=== PATIENT | female | born 1950 | race Caucasian/White ===

== ENCOUNTER 2016-08-02 15:16 | Inpatient (IN) | payer OTHER ==
[~2016-08-02] VITALS: Ht 175.3 cm; Wt 77.6 kg
[~2016-08-02 15:16] MED LIST: ATOR10TA88 PO; CHOL100010 PO; DOXE100C4 PO; GABA-113 PO; GDN80 PO; GLC/500 PO; MDRDP21 PO; MELO15TA3 PO; OMEGCAP2 PO; OMEP20CA59 PO
[2016-08-02] MEDS ORDERED: SODIUM BICARBONATE 8.4% INJ 50 MEQ/50 ML VIAL IV STA (15:34)
[2016-08-02] MEDS ORDERED: SODIUM BICARB 8.4% INJ 50 MEQ/50 ML SYR IV STA ×2 (15:34→16:14)
[2016-08-02] MEDS ORDERED: MAGNESIUM SULFATE 1GM / D5W 1 GM BAG IV STA ×2 (15:34)
[2016-08-02] MEDS ORDERED: ALPR-385 PO (15:42)
[2016-08-02] MEDS ORDERED: LISI-461 PO (15:42)
[2016-08-02] MEDS ORDERED: AMT/25 PO (15:42)
[2016-08-02] MEDS ORDERED: RMR15 PO (15:42)
[2016-08-02] MEDS ORDERED: SODIUM BICARBONATE 8.4% INJ 150 MEQ in DEXTROSE 5% 1000ML 1,000 ML IV SCH (15:45)
[2016-08-02 15:46] LABS: ISTAT CREATININE 0.9 mg/dl (0.6-1.3); ISTAT IONIZED CALCIUM 1.22 mmol/l (1.12-1.32)
[2016-08-02 15:47] LABS: BASO % 0.1 %; BASO ABS # 0.02 K/uL (0-0.2); COMPLETE YES; EOS % 0.5 %; HEMATOCRIT 43.9 % (37-47); IG% 0.1 %; LYMPH % 23.7 %; LYMPH ABS # 3.44 K/uL (1.2-3.4); MEAN CELL VOLUME 85.6 fL (80-100); MEAN CORPUSCULAR HEMOGLOBIN 29.6 pg (25-34); MEAN CORPUSCULAR HGB CONC 34.6 g/dl (32-36); MEAN PLATELET VOLUME 12.1 fL (7.4-10.4); MONO % 6.8 %; NEUT % 68.8 %; PLATELET COUNT 233 K/uL (130-400); RED BLOOD COUNT 5.13 M/uL (4.2-5.4)
[2016-08-02 15:48] LABS: ISTAT ARTERIAL BLOOD GAS HCO3 25 meq/L (19-24); ISTAT ARTERIAL BLOOD GAS PCO2 42 mmHg (35-46); ISTAT ARTERIAL BLOOD GAS PO2 180 mmHg (80-95); ISTAT ARTERIAL BLOOD GAS pH 7.39 (7.35-7.45); ISTAT CARBON DIOXIDE 27 mEq/l (24-31)
[2016-08-02 15:57] LABS: INR 1.1 (0.9-1.1); PARTIAL THROMBOPLASTIN RATIO 0.8; PROTHROMBIN TIME (PATIENT) 11.4 SECONDS (9.0-12.0)
--- NOTE | 2016-08-02 15:59 | DIAGNOSTIC IMAGING REPORT ---
CT HEAD WITHOUT CONTRAST (CT) CLINICAL HISTORY: Acute change in mental status COMPARISON STUDY: No previous studies for comparison. TECHNIQUE: Axial CT of the brain is performed from the vertex to the skull base. IV contrast was not administered for this examination. CT DOSE: 638.56 mGycm FINDINGS: No intra or extra-axial mass lesions are visualized. There is no CT evidence of acute cortical infarction. There is no evidence of midline shift. There is no acute hemorrhage. No calvarial fractures are visualized. There is no evidence of pathologic ventricular dilatation. There is no evidence of acute sinusitis IMPRESSION: No acute intracranial findings Electronically signed by: Jonny Del Toro M.D. 08/02/2016 3:57 PM Dictated Date/Time: 08/02/2016 3:57 PM
[2016-08-02 16:02] LABS: URINE APPEARANCE CLOUDY (CLEAR); URINE BILIRUBIN NEG (NEG); URINE COLOR DK YELLOW; URINE EPITHELIAL CELL AUTO >30 /lpf (0-5); URINE NITRITE NEG (NEG); URINE PH 5.5 (4.5-7.5); URINE SPECIFIC GRAVITY 1.022 (1.000-1.030); UROBILINOGEN NEG (NEG); ZZURINE CULT IF INDIC CATH NO
[2016-08-02 16:03] LABS: MANUAL MICROSCOPIC REQUIRED? NO; REVIEW REQ? NO
--- NOTE | 2016-08-02 16:03 | DIAGNOSTIC IMAGING REPORT ---
SINGLE VIEW CHEST CLINICAL HISTORY: Change in mental status. Intubation. FINDINGS: An AP, portable, upright chest radiograph is compared to study dated 03/11/2010. Correlation is made with chest CT dated 02/28/2010. The examination is significantly degraded by portable technique and patient rotation. An endotracheal tube has been placed. The tip projects 4 cm above the radha. The cardiomediastinal silhouette is normal for projection. The pulmonary vasculature is noncongested. There is elevation of the right hemidiaphragm. Consolidative change is present in the right midlung. A right pleural effusion is suspected. The left lung is grossly clear. No pneumothorax is seen. The skeletal structures are osteopenic. The bony thorax is grossly intact. IMPRESSION: 1. An endotracheal tube has been placed. The tip projects approximately 4 cm above the radha. 2. There is elevation of the right hemidiaphragm with consolidative change in the right midlung. This could represent atelectasis with volume loss versus an infectious/inflammatory pneumonitis. Clinical correlation will be required. Radiographic follow-up to resolution is recommended. 3. A right pleural effusion is suspected. 4. The left lung appears clear. Electronically signed by: Laurent Kent M.D. 08/02/2016 4:01 PM Dictated Date/Time: 08/02/2016 3:59 PM
[2016-08-02] MEDS ORDERED: PIPERACILLIN/TAZOBACTAM 4.5 GM/100ML D5W IV STA (16:04)
[2016-08-02 16:25] LABS: ACETAMINOPHEN < 2 ug/ml (10-30)
[2016-08-02 16:26] LABS: ALKALINE PHOSPHATASE 51 U/L (45-117); ALT/SGPT 21 U/L (12-78); BLOOD UREA NITROGEN 18 mg/dl (7-18); BUN/CREATININE RATIO 19.8 (10-20); CALCIUM 9.7 mg/dl (8.5-10.1); CARBON DIOXIDE 22 mmol/L (21-32); CHLORIDE 105 mmol/L (98-107); CREATININE 0.93 mg/dl (0.60-1.20); GLUCOSE 107 mg/dl (70-99); SODIUM 141 mmol/L (136-145)
[2016-08-02] MEDS ORDERED: ONDANSETRON INJ 2 MG/ML 2 ML VIAL IV PRN (16:30)
[2016-08-02] MEDS ORDERED: LEVOFLOXACIN / D5W 750 MG in PREMIXED IN D5W 150 ML IV SCH (16:30)
[2016-08-02] MEDS ORDERED: FENTANYL CITRATE INJ 50 MCG/1 ML 2 ML VIAL IV PRN (16:30)
[2016-08-02] MEDS ORDERED: ALBUT/IPRATROP 3MG/0.5MG NEB 3 ML VIAL INH PRN (16:30)
[2016-08-02 17:11] LABS: POTASSIUM 3.2 mmol/L (3.5-5.1)
[2016-08-02 17:20] LABS: MAGNESIUM 1.8 mg/dl (1.8-2.4)
[2016-08-02] MEDS ORDERED: PIPERACILL/TAZOBAC IV 3.375 GM in DEXTROSE 5% 100ML 100 ML IV SCH (18:00)
[2016-08-02 18:19] VITALS: BP 145/87; PULSE 74; TEMP 36.9; O2SAT 100; Ht 175.3 cm; Wt 77.6 kg
--- NOTE | 2016-08-02 18:50 | Critical Care Consultation ---
Critical Care Consultation Date of Consultation: Aug 02, 2016. Attending Physician: Kyle Hackett D.O. Reason for Consultation: acute resp failure, OD History of Present Illness Dear Dr. Hackett: thank you for your kind referral of Mrs. Matthews to [facility]. this is a 66 yo female with a significant hx of depression and previous suicidal thoughts, presented to the ED after been found in bed unresponsive, she was intubated in the ED due to airway protection. in fact, her sat was low and the Po2 was disproportionate from the 100% O2 she was on. afterward the pt hx revealed an empty bottle of amitriptyline with approximately 2 gm worth of the medication missing. the rest of her meds appeared untouched. her down time was [place]. the pt also given magnesium due to prolonged QTc. Poison control was notified. in the ICU, the pt remains obtunded, pupils are mid size sluggish, and no response to tactile and verbal. RR = VR. did not withdraw to pain on my exam. family were at the bed side, and according to the living will the pt was DNR. Past Medical/Surgical History HTN, Depression, chronic pain. Family History Heart disease Social History Smoking Status: Never Smoker Alcohol Use: not obtainable. Marital Status: Occupation Status: disabled Allergies Coded Allergies: Aspirin (Verified Allergy, Mild, ASPIRIN, 08/02/16) Erythromycin (Verified Allergy, Mild, RASH, 08/02/16) Penicillins (Verified Allergy, Unknown, 08/02/16) Home Medications Scheduled Alprazolam (Xanax), 1 MG PO DAILY Amitriptyline HCl (Amitriptyline HCl), 250 MG PO HS Atorvastatin (Lipitor), 10 MG PO QPM Cholecalciferol (Vitamin D), 1,000 INTER.UNIT PO BID Doxepin Hcl (Doxepin), 100 MG PO QPM Gabapentin (Neurontin), 300 MG PO TID Lisinopril (Zestril), 10 MG PO DAILY Meloxicam (Mobic), 7.5 MG PO DAILY Metformin Hcl (Glucophage), 500 MG PO BID Mirtazapine (Mirtazapine), 30 MG PO HS Omeprazole (Prilosec), 20 MG PO DAILY Ziprasidone (Geodon *), 160 MG PO HS Current Inpatient Medications Current Inpatient Medications Medications (Trade) Dose Ordered Sig/William Route Start Time Stop Time Status Last Admin Dose Admin Enoxaparin Sodium (Lovenox Inj) 40 mg QPM SQ 08/02/16 21:00 09/01/16 16:29 Fentanyl Citrate (Fentanyl Inj) 25 mcg Q1H PRN IV 08/02/16 16:30 08/16/16 16:29 Ondansetron HCl 4 mg 4 mg Q6H PRN IV 08/02/16 16:30 09/01/16 16:29 Pantoprazole Sodium/Syringe (Protonix Inj/ Syringe) 10 ml @ 5 mls/min DAILY IV 08/03/16 09:00 09/02/16 08:59 Albuterol/ Ipratropium 3 ml 3 ml Q4 PRN INH 08/02/16 16:30 09/01/16 16:29 Sodium Bicarbonate 75 meq/Potassium Chloride 20 meq/ Sodium Chloride 1,085 ml @ 125 mls/hr Q8H41M IV 08/02/16 18:45 09/01/16 16:29 Ceftriaxone Sodium/Dextrose (Rocephin Inj/ Dextrose Add-[place] 50ML) 50 ml @ 100 mls/hr Q24H IV 08/02/16 18:30 08/09/16 18:29 UNV Metoprolol Tartrate (Lopressor Iv) 5 mg Q6 IV. 08/03/16 00:00 09/02/16 00:00 UNV Review of Systems Constitutional: + problem reported (hypothermia on arrival) ENT: + problem reported (obtunded, unresponsive and the ROS is not obtainable.) Physical Exam Date Time Temp Pulse Resp B/P Pulse Ox O2 Delivery O2 Flow Rate FiO2 08/02/16 17:45 74 16 97 08/02/16 17:43 131/90 08/02/16 17:30 74 16 98 08/02/16 17:28 126/88 08/02/16 17:15 74 16 98 08/02/16 17:13 123/89 08/02/16 17:00 74 16 99 08/02/16 16:50 74 16 129/91 99 Mechanical Ventilator 08/02/16 16:41 100 08/02/16 16:30 76 16 150/88 100 Mechanical Ventilator 08/02/16 16:15 77 16 183/102 100 Mechanical Ventilator 08/02/16 16:00 77 16 171/105 100 Mechanical Ventilator 08/02/16 15:37 85 08/02/16 15:30 35.4 83 20 115/79 97 Mechanical Ventilator 08/02/16 15:20 90 20 148/93 96 Ambu-Bag General Appearance: no apparent distress Head: normocephalic, atraumatic Eyes: + pertinent finding (pupils mid size non reacting. ) ENT: + pertinent finding (intubated with 7.5 ETT) Neck: supple Respiratory/Chest: + rhonchi Cardiovascular: regular rate, rhythm, + pertinent finding (QTc 600) Abdomen/GI: normal bowel sounds Extremities/Musculoskelatal: normal inspection Neurologic/Psych: + pertinent finding (obtunded) Laboratory Results Last 24 Hours Test 08/02/16 15:27 08/02/16 15:28 08/02/16 15:30 08/02/16 15:45 Bedside Blood Gas pH (LAB) 7.39 Bedside Blood Gas pCO2 (LAB) 42 mmHg Bedside Blood Gas pO2 (LAB) 180 mmHg Bedside Blood Gas HCO3 (LAB) 25 meq/L Bedside Blood Gas Total CO2 27 mEq/l Bedside Blood Gas Base Excess (LAB) 0.0 meq/L Bedside Blood Gas O2 Saturation 100.0 % Bedside Hemoglobin 15.0 g/dl Bedside Hematocrit 44 % Bedside Sodium 140 mEq/L Bedside Potassium 3.5 mEq/L Bedside Chloride 101 mEq/L Bedside Total CO2 28 mEq/l Anion Gap 15.0 mmol/L 14.0 mmol/L Bedside Blood Urea Nitrogen 22 mg/dl Bedside Creatinine 0.9 mg/dl Bedside Glucose (other) 114 mg/dl Bedside Ionized Calcium (Raquel) 1.22 mmol/l White Blood Count 14.50 K/uL Red Blood Count 5.13 M/uL Hemoglobin 15.2 g/dL Hematocrit 43.9 % Mean Corpuscular Volume 85.6 fL Mean Corpuscular Hemoglobin 29.6 pg Mean Corpuscular Hemoglobin Concent 34.6 g/dl Platelet Count 233 K/uL Mean Platelet Volume 12.1 fL Neutrophils (%) (Auto) 68.8 % Lymphocytes (%) (Auto) 23.7 % Monocytes (%) (Auto) 6.8 % Eosinophils (%) (Auto) 0.5 % Basophils (%) (Auto) 0.1 % Neutrophils # (Auto) 9.96 K/uL Lymphocytes # (Auto) 3.44 K/uL Monocytes # (Auto) 0.99 K/uL Eosinophils # (Auto) 0.07 K/uL Basophils # (Auto) 0.02 K/uL RDW Standard Deviation 40.7 fL RDW Coefficient of Variation 13.1 % Immature Granulocyte % (Auto) 0.1 % Immature Granulocyte # (Auto) 0.02 K/uL Prothrombin Time 11.4 SECONDS Prothromb Time International Ratio 1.1 Activated Partial Thromboplast Time 21.4 SECONDS Partial Thromboplastin Ratio 0.8 Sodium Level 141 mmol/L Potassium Level mmol/L Chloride Level 105 mmol/L Carbon Dioxide Level 22 mmol/L Blood Urea Nitrogen 18 mg/dl Creatinine 0.93 mg/dl Estimated GFR () 75.3 Estimated GFR (Non- 64.9 BUN/Creatinine Ratio 19.8 Random Glucose 107 mg/dl Calcium Level 9.7 mg/dl Total Bilirubin 1.4 mg/dl Direct Bilirubin mg/dl Aspartate Amino Transf (AST/SGOT) U/L Alanine Aminotransferase (ALT/SGPT) 21 U/L Alkaline Phosphatase 51 U/L Troponin I < 0.015 ng/ml Total Protein 6.5 gm/dl Albumin 3.5 gm/dl Salicylates Level < 1.7 mg/dl Acetaminophen Level < 2 ug/ml Urine Color DK YELLOW Urine Appearance CLOUDY Urine pH 5.5 Urine Specific [employer] 1.022 Urine Protein NEG Urine Glucose (UA) NEG Urine Ketones 2+ Urine Occult Blood NEG Urine Nitrite NEG Urine Bilirubin NEG Urine Urobilinogen NEG Urine Leukocyte Esterase NEG Urine WBC (Auto) 1-5 /hpf Urine RBC (Auto) 0-4 /hpf Urine Hyaline Casts (Auto) 1-5 /lpf Urine Epithelial Cells (Auto) >30 /lpf Urine Bacteria (Auto) NEG Test 08/02/16 16:40 08/02/16 16:41 Potassium Level 3.2 mmol/L Magnesium Level 1.8 mg/dl Direct Bilirubin 0.3 mg/dl Aspartate Amino Transf (AST/SGOT) 32 U/L Total Creatine Kinase 840 U/L Bedside Lactic Acid Venous 0.78 mmol/L Diagnostic Results head ct without evidence of cerebral injury. CXR with sub segmental atelectasis. Assessment & Plan #1 acute resp failure. #2 Tricyclic OD. #3 Coma presumed relatd to the above. #4 Depresion by Hx. #5 aspiration pneumonitis. #6 possible suicidal attempt. #7 HTN. #8 Back pain. Plan: #1 continue bicarb drip. #2 check ABG every 4 hrs to avoid met alkalosis. #3 check Qtc hourly., #4 dc Levaquin ( prolonged QTc). #5 dc Zosyn ( allergy to PCN). #6 start Ceftriaxone for aspiration and CAP. #7 Vent support with VAP bundle. #8 GI and DVT prophylaxis. #9 keep off sedation. expect clearance over 24- 48 hours of the TCA. if not , will repeat the head ct , eval for cerebral edema. #10 daily labs. #11 family updated. discussed with the staff and with dr. Hackett, appreciate your consultation. CCT 60 min
[2016-08-02 20:00] VITALS: BP 137/84; PULSE 75; TEMP 36.9; O2SAT 100
[2016-08-02 20:39] LABS: ISTAT ALLEN TEST Pass; ISTAT ARTERIAL BLOOD GAS HCO3 26 meq/L (19-24); ISTAT ARTERIAL BLOOD GAS PCO2 32 mmHg (35-46); ISTAT ARTERIAL BLOOD GAS PO2 171 mmHg (80-95); ISTAT ARTERIAL BLOOD GAS pH 7.52 (7.35-7.45); ISTAT CARBON DIOXIDE 27 mEq/l (24-31); ISTAT DELIVERY SYSTEM Ventilator; ISTAT FIO2 70 %; ISTAT PEEP 5; ISTAT RATE 16; ISTAT SITE R Radial; Vt 450
--- NOTE | 2016-08-02 20:48 | History and Physical ---
History & Physical Date & Time of Service: Aug 02, 2016 at 20:25 Chief Complaint: Respiratory Failure,Tricyclic Antidepressant Overd Primary Care Physician: Rachid Laws D.O.Int.Med. History of Present Illness Source: family, hospital records, EMS 66 yo female with a history of depression who was found minimally responsive at her house this morning and later brought to the ED by EMS after being intubated in the field. The details of her presentation are difficult to determine, her is at the bedside but he himself is not a great historian. He says that he was watching the football game last night and that the patient was in bed. It is not unusual for her to spend long amounts of time in bed, even during the day. She was asleep and this was around 9pm. This morning when the patient woke up he tried to wake up the patient but she would not open her eyes , would not move at all. It is unclear as to what time that was, but the patient did not arrive in the ED until 1520. She was intubated by EMS in the field. The patient's does not know if she intentionally overdoses on any medications, he says that she controls both her own medications and his medications. Also, he is legally blind so cannot tell what pills she would have took. The RN in the ED did notice that when she was taking inventory of the patient's medications, her amitriptyline bottle had only 8 pills left but should have had more based on when it was filled. Also, the patient just started taking Xanax. The said that she did not have any signs of infection like fever, chills, cough, dyspnea or abdominal pain over the past few days. In the ED her vitals were stable with the exception of hypothermia of 35.4 degrees. WBC was elevated. CXR showed right mid lung consolidation vs atelectasis. CT head was normal. EKG showed QT prolongation, she was given magnesium and sodium bicarbonate. Past Medical/Surgical History Medical Problems: (1) COPD (chronic obstructive pulmonary disease) Status: Chronic (2) Degenerative disc disease, lumbar Status: Chronic (3) Depressive Disorder Nec Status: Chronic (4) Hypertension Nos Status: Chronic Surgical Problems: (1) S/P section Status: Resolved (2) S/P cholecystectomy Status: Resolved (3) S/P hysterectomy Status: Resolved Family History Heart disease Social History Smoking Status: Never Smoker Alcohol Use: not obtainable. Marital Status: Housing status: lives with family Occupational Status: disabled Immunizations History of Influenza Vaccine: No History of Tetanus Vaccine?: Yes Tetanus Immunization Date: May 04, 2005 History of Pneumococcal: No History of Hepatitis B Vaccine: No Multi-Drug Resistant Organisms History of MDRO: No Allergies Coded Allergies: Aspirin (Verified Allergy, Mild, ASPIRIN, 08/02/16) Erythromycin (Verified Allergy, Mild, RASH, 08/02/16) Penicillins (Verified Allergy, Unknown, 08/02/16) Home Medications Scheduled Alprazolam (Xanax), 1 MG PO DAILY Amitriptyline HCl (Amitriptyline HCl), 250 MG PO HS Atorvastatin (Lipitor), 10 MG PO QPM Cholecalciferol (Vitamin D), 1,000 INTER.UNIT PO BID Doxepin Hcl (Doxepin), 100 MG PO QPM Gabapentin (Neurontin), 300 MG PO TID Lisinopril (Zestril), 10 MG PO DAILY Meloxicam (Mobic), 7.5 MG PO DAILY Metformin Hcl (Glucophage), 500 MG PO BID Mirtazapine (Mirtazapine), 30 MG PO HS Omeprazole (Prilosec), 20 MG PO DAILY Ziprasidone (Geodon *), 160 MG PO HS Review of Systems cannot recall because she was intubated, unresponsive Physical Exam Vital Signs Date Time Temp Pulse Resp B/P Pulse Ox O2 Delivery O2 Flow Rate FiO2 08/02/16 20:07 70 08/02/16 18:19 36.9 74 18 145/87 100 Mechanical Ventilator 70 08/02/16 18:15 99 08/02/16 17:45 74 16 97 08/02/16 17:43 131/90 08/02/16 17:30 74 16 98 08/02/16 17:28 126/88 08/02/16 17:15 74 16 98 08/02/16 17:13 123/89 08/02/16 17:00 74 16 99 08/02/16 16:50 74 16 129/91 99 Mechanical Ventilator 08/02/16 16:41 100 08/02/16 16:30 76 16 150/88 100 Mechanical Ventilator 08/02/16 16:15 77 16 183/102 100 Mechanical Ventilator 08/02/16 16:00 77 16 171/105 100 Mechanical Ventilator 08/02/16 15:37 85 08/02/16 15:30 35.4 83 20 115/79 97 Mechanical Ventilator 08/02/16 15:20 90 20 148/93 96 Ambu-Bag General Appearance: WD/WN, no apparent distress Head: normocephalic, atraumatic Eyes: normal inspection, sclerae normal, + pertinent finding (pupils 4mm, minimal reaction to light) ENT: normal ENT inspection, hearing grossly normal, + pertinent finding ( intubated) Neck: supple, no adenopathy, no JVD, trachea midline Respiratory/Chest: chest non-tender, no respiratory distress, no accessory muscle use, + decreased breath sounds Cardiovascular: regular rate, rhythm, no edema, no gallop, no JVD, no murmur, normal peripheral pulses Abdomen/GI: normal bowel sounds, non tender, soft, no organomegaly Extremities/Musculoskelatal: normal inspection, no calf tenderness, normal capillary refill, no pedal edema, normal range of motion, pelvis stable Neurologic/Psych: riffler tender II-XII nml as tested, + depressed affect, + disoriented, + pertinent finding (withdraws to pain appropriately, will not open eyes or follow commands) Skin: normal color, warm/dry, no rash Diagnostics Laboratory Results Results Past 24 Hours Test 08/02/16 15:27 08/02/16 15:28 08/02/16 15:30 08/02/16 15:45 Range/Units Bedside Blood Gas pH (LAB) 7.39 7.35-7.45 Bedside Blood Gas pCO2 (LAB) 42 35-46 mmHg Bedside Blood Gas pO2 (LAB) 180 80-95 mmHg Bedside Blood Gas HCO3 (LAB) 25 19-24 meq/L Bedside Blood Gas Total CO2 27 24-31 mEq/l Bedside Blood Gas Base Excess (LAB) 0.0 -9-1.8 meq/L Bedside Blood Gas O2 Saturation 100.0 90-95 % Bedside Hemoglobin 15.0 12.0-16.0 g/dl Bedside Hematocrit 44 37-47 % Bedside Sodium 140 135-144 mEq/L Bedside Potassium 3.5 3.3-5.0 mEq/L Bedside Chloride 101 101-112 mEq/L Bedside Total CO2 28 24-31 mEq/l Anion Gap 15.0 14.0 3-11 mmol/L Bedside Blood Urea Nitrogen 22 7-18 mg/dl Bedside Creatinine 0.9 0.6-1.3 mg/dl Bedside Glucose (other) 114 70-99 mg/dl Bedside Ionized Calcium (Raquel) 1.22 1.12-1.32 mmol/l White Blood Count 14.50 4.8-10.8 K/uL Red Blood Count 5.13 4.2-5.4 M/uL Hemoglobin 15.2 12.0-16.0 g/dL Hematocrit 43.9 37-47 % Mean Corpuscular Volume 85.6 80-100 fL Mean Corpuscular Hemoglobin 29.6 25-34 pg Mean Corpuscular Hemoglobin Concent 34.6 32-36 g/dl Platelet Count 233 130-400 K/uL Mean Platelet Volume 12.1 7.4-10.4 fL Neutrophils (%) (Auto) 68.8 % Lymphocytes (%) (Auto) 23.7 % Monocytes (%) (Auto) 6.8 % Eosinophils (%) (Auto) 0.5 % Basophils (%) (Auto) 0.1 % Neutrophils # (Auto) 9.96 1.4-6.5 K/uL Lymphocytes # (Auto) 3.44 1.2-3.4 K/uL Monocytes # (Auto) 0.99 0.11-0.59 K/uL Eosinophils # (Auto) 0.07 0-0.5 K/uL Basophils # (Auto) 0.02 0-0.2 K/uL RDW Standard Deviation 40.7 36.4-46.3 fL RDW Coefficient of Variation 13.1 11.5-14.5 % Immature Granulocyte % (Auto) 0.1 % Immature Granulocyte # (Auto) 0.02 0.00-0.02 K/uL Prothrombin Time 11.4 9.0-12.0 SECONDS Prothromb Time International Ratio 1.1 0.9-1.1 Activated Partial Thromboplast Time 21.4 21.0-31.0 SECONDS Partial Thromboplastin Ratio 0.8 Sodium Level 141 136-145 mmol/L Potassium Level 3.5-5.1 mmol/L Chloride Level 105 98-107 mmol/L Carbon Dioxide Level 22 21-32 mmol/L Blood Urea Nitrogen 18 7-18 mg/dl Creatinine 0.93 0.60-1.20 mg/dl Estimated GFR () 75.3 Estimated GFR (Non- 64.9 BUN/Creatinine Ratio 19.8 10-20 Random Glucose 107 70-99 mg/dl Calcium Level 9.7 8.5-10.1 mg/dl Total Bilirubin 1.4 0.2-1 mg/dl Direct Bilirubin 0-0.2 mg/dl Aspartate Amino Transf (AST/SGOT) 15-37 U/L Alanine Aminotransferase (ALT/SGPT) 21 12-78 U/L Alkaline Phosphatase 51 45-117 U/L Troponin I < 0.015 0-0.045 ng/ml Total Protein 6.5 6.4-8.2 gm/dl Albumin 3.5 3.4-5.0 gm/dl Salicylates Level < 1.7 2.8-20 mg/dl Acetaminophen Level < 2 10-30 ug/ml Urine Color DK YELLOW Urine Appearance CLOUDY CLEAR Urine pH 5.5 4.5-7.5 Urine Specific [place] 1.022 1.000-1.030 Urine Protein NEG NEG Urine Glucose (UA) NEG NEG Urine Ketones 2+ NEG Urine Occult Blood NEG NEG Urine Nitrite NEG NEG Urine Bilirubin NEG NEG Urine Urobilinogen NEG NEG Urine Leukocyte Esterase NEG NEG Urine WBC (Auto) 1-5 0-5 /hpf Urine RBC (Auto) 0-4 0-4 /hpf Urine Hyaline Casts (Auto) 1-5 0-5 /lpf Urine Epithelial Cells (Auto) >30 0-5 /lpf Urine Bacteria (Auto) NEG NEG Test 08/02/16 16:40 08/02/16 16:41 Range/Units Potassium Level 3.2 3.5-5.1 mmol/L Magnesium Level 1.8 1.8-2.4 mg/dl Direct Bilirubin 0.3 0-0.2 mg/dl Aspartate Amino Transf (AST/SGOT) 32 15-37 U/L Total Creatine Kinase 840 26-192 U/L Bedside Lactic Acid Venous 0.78 0.90-1.70 mmol/L Microbiology Results 08/02/16 Blood Culture, Received Pending 08/02/16 Blood Culture, Received Pending 08/02/16 MRSA DNA Surveillance Screen, Received Pending Diagnostic Radiology CXR: intubated, right pleural effusion, right midlung atelectasis vs consolidation CT head: normal EKG normal sinus rhythm, QT prolongation Impression Assessment and Plan 66 yo female with unresponsiveness, metabolic vs toxic encephalopathy - Encephalopathy: metabolic vs toxic possible overdose of TCA or interaction of multiple medications with sedating properties no planned sedation, can use Fentanyl PRN for any signs of pain treat possible right lung pneumonia renal function, electrolytes, CT head normal admit to ICU since intubated - Acute respiratory failure: likely due to effects of TCA and benzodiazepines stable on ventilatory currently - Right sided pneumonia: treat with Zosyn, no Levaquin due to QT prolongation - Hypothermia: JADA pat - DVT prophylaxis: Lovenox - TCA overdose (potential): sodium bicarbonate, follow EKG for QT correction Level of Care Critical Care Advanced Directives Existing Advance Directive: No Existing Living Will: No 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 Y/N: Yes Risk Level: Not Assessed Given or contraindicated: Enoxaparin (Lovenox)SQ
[2016-08-02] MEDS ORDERED: ENOXAPARIN 40 MG/0.4 ML SYR SQ SCH (21:00)
[2016-08-02] MEDS: POTASSIUM CHLORIDE IV SCH (21:09)
[2016-08-02] MEDS: [UNRECOGNIZED DRUG - OTHER] IV SCH (21:09)
[2016-08-02] MEDS: SODIUM BICARBONATE IV SCH (21:09)
[2016-08-02] MEDS ORDERED: INFLUENZA VIRUS QUAD VACCINE 0.5 ML SYR IM. ONE (21:45)
[2016-08-02] MEDS ORDERED: INFLUENZA ADMINISTRATION CHARGE ONE (21:45)
--- NOTE | 2016-08-02 21:51 | EMERGENCY ROOM VISIT NOTE ---
History Report prepared by Janet: Liz Orellana Under the Supervision of: Dr. Everette Begum D.O. First contact with patient: 15:17 Chief Complaint: OVERDOSE (INTENTIONAL) Stated Complaint: OVERDOSE History of Present Illness The patient is a 66 year old female who presents to the Emergency Room via ambulance to be evaluated for altered mental status secondary to a possible overdose today. Per EMS and patient's family, the patient was last seen at 8:30 last evening. She was complaining about feeling worried but had no physical symptoms at that time. She went to bed but this morning, did not get up. Her made multiple attempts to wake her up without success, so an ambulance was called. En route, she was given Narcan, but she did not respond. She was intubated in the field. Her family notes that the patient was recently discharged from the [facility] after being admitted for depression and started a new benzo 2 weeks ago. She is on Xanax, Amitriptyline, Mirtazapine, Doxepin, and Ziprasidone. The patient is a nonsmoker with a history of COPD. Complete history unobtainable secondary to unresponsiveness. Source of History: family, EMS History Limited By: other (unresponsive) Onset: today Position: other (global) Quality: other (AMS - possible overdose) Timing: constant Review of Systems Unobtainable secondary to unresponsiveness. Past Medical & Surgical Medical Problems: (1) COPD (chronic obstructive pulmonary disease) (2) Degenerative disc disease, lumbar (3) Depressive Disorder Nec (4) Hypertension Nos (5) Respiratory failure (6) Tricyclic antidepressant overdose of undetermined intent Surgical Problems: (1) S/P section (2) S/P cholecystectomy (3) S/P hysterectomy Family History Heart disease Social History Smoking Status: Never Smoker Marital Status: Occupation Status: disabled Current/Historical Medications Scheduled Alprazolam (Xanax), 1 MG PO DAILY Amitriptyline HCl (Amitriptyline HCl), 250 MG PO HS Atorvastatin (Lipitor), 10 MG PO QPM Cholecalciferol (Vitamin D), 1,000 INTER.UNIT PO BID Doxepin Hcl (Doxepin), 100 MG PO QPM Gabapentin (Neurontin), 300 MG PO TID Lisinopril (Zestril), 10 MG PO DAILY Meloxicam (Mobic), 7.5 MG PO DAILY Metformin Hcl (Glucophage), 500 MG PO BID Mirtazapine (Mirtazapine), 30 MG PO HS Omeprazole (Prilosec), 20 MG PO DAILY Ziprasidone (Geodon *), 160 MG PO HS Allergies Coded Allergies: Aspirin (Verified Allergy, Mild, ASPIRIN, 08/02/16) Erythromycin (Verified Allergy, Mild, RASH, 08/02/16) Penicillins (Verified Allergy, Unknown, 08/02/16) Physical Exam Vital Signs Date Time Temp Pulse Resp B/P Pulse Ox O2 Delivery O2 Flow Rate FiO2 08/02/16 16:15 77 16 183/102 100 Mechanical Ventilator 08/02/16 16:00 77 16 171/105 100 Mechanical Ventilator 08/02/16 15:37 85 08/02/16 15:30 35.4 83 20 115/79 97 Mechanical Ventilator 08/02/16 15:20 90 20 148/93 96 Ambu-Bag Physical Exam GENERAL: Unresponsive, laying on stretcher, intubated. HEAD: Normocephalic, atraumatic. EYE EXAM: normal conjunctiva, pupils are 3 mm and reactive. NOSE: No septal hematoma. OROPHARYNX: no exudate, no erythema, lips, buccal mucosa, and tongue normal and mucous membranes are moist. 7.5 ET tube was 23 at the lips. NECK: supple, no nuchal rigidity, no adenopathy, non-tender LUNGS: Coarse breath sounds bilaterally. Normal chest wall mechanics HEART: no murmurs, S1 normal and S2 normal ABDOMEN: abdomen soft, non-tender, normo-active bowel sounds, no masses, no rebound or guarding. BACK: Back is symmetrical on inspection and there is no deformity, no midline tenderness, no CVA tenderness. PELVIS: Stable to compression anterior and posterior. SKIN: no rashes and no bruising UPPER EXTREMITIES: upper extremities are grossly normal. LOWER EXTREMITIES: No pitting edema. NEURO EXAM: Unresponsive, eyes closed, intubated, withdraws toes to pain. Medical Decision & Procedures ER Provider Diagnostic Interpretation: Xray results per the radiologist and my interpretation. Other results have been interpreted by the radiologist and reviewed by me. CT HEAD WITHOUT CONTRAST (CT) CLINICAL HISTORY: Acute change in mental status COMPARISON STUDY: No previous studies for comparison. TECHNIQUE: Axial CT of the brain is performed from the vertex to the skull base. IV contrast was not administered for this examination. CT DOSE: 638.56 mGycm FINDINGS: No intra or extra-axial mass lesions are visualized. There is no CT evidence of acute cortical infarction. There is no evidence of midline shift. There is no acute hemorrhage. No calvarial fractures are visualized. There is no evidence of pathologic ventricular dilatation. There is no evidence of acute sinusitis IMPRESSION: No acute intracranial findings Electronically signed by: Jonny Del Toro M.D. 08/02/2016 3:57 PM Dictated Date/Time: 08/02/2016 3:57 PM SINGLE VIEW CHEST CLINICAL HISTORY: Change in mental status. Intubation. FINDINGS: An AP, portable, upright chest radiograph is compared to study dated 03/11/2010. Correlation is made with chest CT dated 02/28/2010. The examination is significantly degraded by portable technique and patient rotation. An endotracheal tube has been placed. The tip projects 4 cm above the radha. The cardiomediastinal silhouette is normal for projection. The pulmonary vasculature is noncongested. There is elevation of the right hemidiaphragm. Consolidative change is present in the right midlung. A right pleural effusion is suspected. The left lung is grossly clear. No pneumothorax is seen. The skeletal structures are osteopenic. The bony thorax is grossly intact. IMPRESSION: 1. An endotracheal tube has been placed. The tip projects approximately 4 cm above the radha. 2. There is elevation of the right hemidiaphragm with consolidative change in the right midlung. This could represent atelectasis with volume loss versus an infectious/inflammatory pneumonitis. Clinical correlation will be required. Radiographic follow-up to resolution is recommended. 3. A right pleural effusion is suspected. 4. The left lung appears clear. Electronically signed by: Laurent Kent M.D. 08/02/2016 4:01 PM Dictated Date/Time: 08/02/2016 3:59 PM Laboratory Results 08/02/16 15:30 Red Blood Count 5.13, Mean Corpuscular Volume 85.6, Mean Corpuscular Hemoglobin 29.6, Mean Corpuscular Hemoglobin Concent 34.6, Mean Platelet Volume 12.1, Neutrophils (%) (Auto) 68.8, Lymphocytes (%) (Auto) 23.7, Monocytes (%) (Auto) 6.8, Eosinophils (%) (Auto) 0.5, Basophils (%) (Auto) 0.1, Neutrophils # (Auto) 9.96, Lymphocytes # (Auto) 3.44, Monocytes # (Auto) 0.99, Eosinophils # (Auto) 0.07, Basophils # (Auto) 0.02 08/02/16 15:30 Test 08/02/16 15:28 08/02/16 15:30 08/02/16 15:45 Bedside Hemoglobin 15.0 g/dl (12.0-16.0) Bedside Hematocrit 44 % (37-47) Bedside Sodium 140 mEq/L (135-144) Bedside Potassium 3.5 mEq/L (3.3-5.0) Bedside Chloride 101 mEq/L (101-112) Bedside Total CO2 28 mEq/l (24-31) Bedside Blood Urea Nitrogen 22 mg/dl (7-18) Bedside Creatinine 0.9 mg/dl (0.6-1.3) Bedside Glucose (other) 114 mg/dl (70-99) Bedside Ionized Calcium (Raquel) 1.22 mmol/l (1.12-1.32) White Blood Count 14.50 K/uL (4.8-10.8) Red Blood Count 5.13 M/uL (4.2-5.4) Hemoglobin 15.2 g/dL (12.0-16.0) Hematocrit 43.9 % (37-47) Mean Corpuscular Volume 85.6 fL (80-100) Mean Corpuscular Hemoglobin 29.6 pg (25-34) Mean Corpuscular Hemoglobin Concent 34.6 g/dl (32-36) Platelet Count 233 K/uL (130-400) Mean Platelet Volume 12.1 fL (7.4-10.4) Neutrophils (%) (Auto) 68.8 % Lymphocytes (%) (Auto) 23.7 % Monocytes (%) (Auto) 6.8 % Eosinophils (%) (Auto) 0.5 % Basophils (%) (Auto) 0.1 % Neutrophils # (Auto) 9.96 K/uL (1.4-6.5) Lymphocytes # (Auto) 3.44 K/uL (1.2-3.4) Monocytes # (Auto) 0.99 K/uL (0.11-0.59) Eosinophils # (Auto) 0.07 K/uL (0-0.5) Basophils # (Auto) 0.02 K/uL (0-0.2) RDW Standard Deviation 40.7 fL (36.4-46.3) RDW Coefficient of Variation 13.1 % (11.5-14.5) Immature Granulocyte % (Auto) 0.1 % Immature Granulocyte # (Auto) 0.02 K/uL (0.00-0.02) Prothrombin Time 11.4 SECONDS (9.0-12.0) Prothromb Time International Ratio 1.1 (0.9-1.1) Activated Partial Thromboplast Time 21.4 SECONDS (21.0-31.0) Partial Thromboplastin Ratio 0.8 Anion Gap 14.0 mmol/L (3-11) Estimated GFR () 75.3 Estimated GFR (Non- 64.9 BUN/Creatinine Ratio 19.8 (10-20) Calcium Level 9.7 mg/dl (8.5-10.1) Total Bilirubin 1.4 mg/dl (0.2-1) Alanine Aminotransferase (ALT/SGPT) 21 U/L (12-78) Alkaline Phosphatase 51 U/L (45-117) Troponin I < 0.015 ng/ml (0-0.045) Total Protein 6.5 gm/dl (6.4-8.2) Albumin 3.5 gm/dl (3.4-5.0) Salicylates Level < 1.7 mg/dl (2.8-20) Acetaminophen Level < 2 ug/ml (10-30) Urine Color DK YELLOW Urine Appearance CLOUDY (CLEAR) Urine pH 5.5 (4.5-7.5) Urine Specific [place] 1.022 (1.000-1.030) Urine Protein NEG (NEG) Urine Glucose (UA) NEG (NEG) Urine Ketones 2+ (NEG) Urine Occult Blood NEG (NEG) Urine Nitrite NEG (NEG) Urine Bilirubin NEG (NEG) Urine Urobilinogen NEG (NEG) Urine Leukocyte Esterase NEG (NEG) Urine WBC (Auto) 1-5 /hpf (0-5) Urine RBC (Auto) 0-4 /hpf (0-4) Urine Hyaline Casts (Auto) 1-5 /lpf (0-5) Urine Epithelial Cells (Auto) >30 /lpf (0-5) Urine Bacteria (Auto) NEG (NEG) Laboratory results per my review. Medications Administered Medications (Trade) Dose Ordered Sig/William Route Start Time Stop Time Status Last Admin Dose Admin Sodium Bicarbonate/ Dextrose (Sodium Bicarbonate 8.4% Inj/D5W 1000ml) 1,150 ml @ 100 mls/hr [id number] IV 08/02/16 15:45 08/02/16 18:19 DC 08/02/16 16:03 100 MLS/HR Sodium Bicarbonate (Sodium Bicarbonate 8.4% Inj) 50 meq NOW STAT IV 08/02/16 15:34 08/02/16 15:35 DC 08/02/16 16:02 50 MEQ Magnesium Sulfate (Magnesium Sulfate) 2 gm NOW STAT IV 08/02/16 15:34 08/02/16 15:35 DC 08/02/16 16:04 2 GM Piperacillin Sod/ Tazobactam Sod (Zosyn Iv) 4.5 gm NOW STAT IV 08/02/16 16:04 08/02/16 16:05 DC 08/02/16 17:01 4.5 GM ECG Indication: altered mental status Rate (beats per minute): 88 Rhythm: sinus rhythm Findings: left axis deviation, other (prolonged QRS and QTC) Comparison ECG Date: 05/06/2010 Change: QRS and QTc are longer. Repeat in-hospital EKG: Sinus rhythm at 76 BPM, prolonged QTC, QRS is improving. ED Course ED COURSE: Vital signs were reviewed and showed hyperthermia. The patients medical record was reviewed The above diagnostic studies were performed and reviewed. ED treatments and interventions as stated above. 1516: The patient was evaluated in room A1. A complete history and physical examination was performed 1528: I spoke with [facility]. They agreed with a bicarb drip. 1534: Ordered Magnesium Sulfate 2 gm IV, Sodium Bicarbonate 50 meq IV. 1545: Ordered Sodium Bicarbonate 150 meq/Dextrose 1150 ml @ 100 mls/hr IV,. 1610: I discussed my findings with the patient's family and they understand and agree with the treatment plan. Based on the patients age, coexisting illnesses, exam and lab findings the decision to treat as an inpatient was made. The patient remained stable while under my care. The patient will be evaluated for further management. 1612: I discussed the case with Dr. Hacktet [facility] Hospitalist. The patient will be evaluated for further management. 1614: Ordered Sodium Bicarbonate 50 ml IV. 1615: Respiratory will advance the ET tube 1.5 cm. Medical Decision Differential diagnoses includes but is not limited to toxic, metabolic, infectious, traumatic, cardiac, neurologic, hematologic, psychiatric and inflammatory etiologies. Patient is a 66-year-old female who presents the ER unresponsive. She is last seen well last night around 8:30 in her significant other notes that she was just simply worried last night. She recent discharge from the [facility]. No previous suicide attempts. Since 9 PM last night she was lying in bed and had been unresponsive. They tried to wake her up multiple times today but were unsuccessful. They called EMS. She was transported to the ER and in route was intubated due to respiratory failure. Upon presentation to the ER she slightly withdraws her lower extremities to pain. Pupils are reactive. ET tube was in place. This was advanced following a chest x-ray 1.5 cm. Chest x-ray showed a focal consolidation the right upper lobe. Upon review of her medications initially she had 3 separate bottles of TCA medications. She also recently started benzodiazepine. Patient required no sedation while in the ER. Ventilator was managed. Labs were obtained and show a leukocytosis of 14,000, BMP along with LFTs is unremarkable. CK was only 800. Troponin was negative. Salicylates and Tylenol were negative. UA was negative. ABG shows a pH 7.39 along with bicarbonate 25. Upon her initial presentation to EKG was obtained which showed a QRS of 1:30. She was initially given 2 boluses of bicarbonate and placed on bicarbonate drip. QTC was greater than 550. Repeat EKG did show that this QRS duration improved. I did contact poison control and they creep with the management. Family was updated at bedside. Patient was discussed with internal medicine and admitted for further management. She is continued on a bicarbonate drip on the ER. She was also given 2 g of magnesium for the wide QRS along with Zosyn for her likely aspiration pneumonitis. Consults Time Called: 1525 Consulting Physician: [facility] Returned Call: 1521 I spoke with [facility]. They agreed with a bicarb drip. Additional Consults: Time Called: 1610 Consulted Physician: Dr. Hackett [facility] Returned Call: 1612 Additional Comments: I discussed the case with him. The patient will be evaluated for further management. Impression Primary Impression: Tricyclic antidepressant overdose of undetermined intent Additional Impressions: Altered mental status Prolongation of QRS complex on electrocardiography Sepsis Critical Care I have personally spent 80 minutes of critical care time in the direct management of this patient. This includes bedside care, interpretation of diagnostic studies, and testing, discussion with consultants, patient, and family members, and other required patient management activities. This 80 minutes is in excess of all separately billable procedures. Scribe Attestation The scribe's documentation has been prepared under my direction and personally reviewed by me in its entirety. I confirm that the note above accurately reflects all work, treatment, procedures, and medical decision making performed by me. Departure Information Dispostion Being Evaluated By Hospitalist Referrals Rachid Laws D.O.Int.Med. (PCP) Patient Instructions My [facility] Problem Qualifiers Primary Impression: Tricyclic antidepressant overdose of undetermined intent Encounter type: initial encounter Qualified Codes: T43.014A - Poisoning by tricyclic antidepressants, undetermined, initial encounter Additional Impressions: Altered mental status Altered mental status type: coma Coma depth: [place] coma 3-8 Coma timing: at arrival to emergency department Qualified Codes: R40.2432 - [place] coma scale score 3-8, at arrival to emergency department Sepsis Sepsis type: sepsis due to unspecified organism Qualified Codes: A41.9 - Sepsis, unspecified organism
[2016-08-02 22:00] VITALS: BP 146/90; PULSE 81; O2SAT 99
[2016-08-02] MEDS ORDERED: CEFTRIAXONE SOD INJ 1 GM in DEXTROSE 5% ADD-VANTAGE 50ML 50 ML IV SCH (22:00)
[2016-08-02] MEDS ORDERED: FENTANYL 1250MCG/250ML NSS IV PRN (23:15)
[2016-08-02] MEDS ORDERED: NURSING VERBAL MED ORDER ONE (23:15)
[2016-08-03] VITALS (11 sets, daily range): BP systolic 104–151; BP diastolic 71–89; PULSE 61–91; TEMP 36.8–37.3; O2SAT 90–99
[2016-08-03 00:13] LABS: ISTAT ALLEN TEST Pass; ISTAT ARTERIAL BLOOD GAS HCO3 29 meq/L (19-24); ISTAT ARTERIAL BLOOD GAS PCO2 36 mmHg (35-46); ISTAT ARTERIAL BLOOD GAS PO2 115 mmHg (80-95); ISTAT ARTERIAL BLOOD GAS pH 7.52 (7.35-7.45); ISTAT CARBON DIOXIDE 30 mEq/l (24-31); ISTAT DELIVERY SYSTEM Ventilator; ISTAT FIO2 40 %; ISTAT PEEP 5; ISTAT RATE 14; ISTAT SITE R Radial; Vt 450
[2016-08-03] MEDS: SODIUM BICARBONATE IV SCH ×2 (03:26→12:10)
[2016-08-03] MEDS: [UNRECOGNIZED DRUG - OTHER] IV SCH ×2 (03:26→12:10)
[2016-08-03] MEDS: POTASSIUM CHLORIDE IV SCH ×2 (03:26→12:10)
[2016-08-03 03:59] LABS: ISTAT ALLEN TEST Pass; ISTAT ARTERIAL BLOOD GAS HCO3 30 meq/L (19-24); ISTAT ARTERIAL BLOOD GAS PCO2 36 mmHg (35-46); ISTAT ARTERIAL BLOOD GAS PO2 101 mmHg (80-95); ISTAT ARTERIAL BLOOD GAS pH 7.53 (7.35-7.45); ISTAT CARBON DIOXIDE 31 mEq/l (24-31); ISTAT DELIVERY SYSTEM Ventilator; ISTAT FIO2 35 %; ISTAT PEEP 5; ISTAT RATE 14; ISTAT SITE L Radial; VE 6.2; Vt 450
[2016-08-03] MEDS ORDERED: NURSING VERBAL MED ORDER ONE (05:15)
[2016-08-03 05:18] LABS: BASO % 0.2 %; BASO ABS # 0.02 K/uL (0-0.2); COMPLETE YES; EOS % 0.2 %; HEMATOCRIT 37.8 % (37-47); IG% 0.2 %; LYMPH % 14.6 %; LYMPH ABS # 1.89 K/uL (1.2-3.4); MEAN CELL VOLUME 84.8 fL (80-100); MEAN CORPUSCULAR HEMOGLOBIN 29.8 pg (25-34); MEAN CORPUSCULAR HGB CONC 35.2 g/dl (32-36); MEAN PLATELET VOLUME 11.5 fL (7.4-10.4); NEUT % 77.8 %; PLATELET COUNT 217 K/uL (130-400); RED BLOOD COUNT 4.46 M/uL (4.2-5.4); WHITE BLOOD COUNT 12.93 K/uL (4.8-10.8)
[2016-08-03 05:39] LABS: BUN/CREATININE RATIO 19.8 (10-20); CALCIUM 8.4 mg/dl (8.5-10.1); CREATININE 0.99 mg/dl (0.60-1.20); MAGNESIUM 1.9 mg/dl (1.8-2.4); POTASSIUM 3.4 mmol/L (3.5-5.1)
[2016-08-03] MEDS: MAGNESIUM SULFATE 1GM / D5W 1 GM in PREMIXED IN D5W 100 ML IV SCH ×2 (05:42→05:43)
--- NOTE | 2016-08-03 06:55 | DIAGNOSTIC IMAGING REPORT ---
CHEST ONE VIEW PORTABLE CLINICAL HISTORY: Respiratory failure COMPARISON STUDY: 08/02/2016 FINDINGS: There is an endotracheal tube 32 mm above the radha. There is a nasogastric tube within the stomach. The heart is normal in size. There is no failure. There is been interval resolution of the right midlung zone opacity. Increased right basal markings, likely atelectatic.[ IMPRESSION: Interval resolution of the previously described right midlung zone opacity. Satisfactory positioning of the endotracheal tube and nasogastric tube. Electronically signed by: Jonny Del Toro M.D. 08/03/2016 6:53 AM Dictated Date/Time: 08/03/2016 6:51 AM
[2016-08-03] MEDS: METOPROLOL TARTRATE 1 MG/ML VIAL IV. SCH ×3 (08:20→12:09)
[2016-08-03 08:51] LABS: URINE APPEARANCE TURBID (CLEAR); URINE BILIRUBIN NEG (NEG); URINE COLOR DK YELLOW; URINE EPITHELIAL CELL AUTO >30 /lpf (0-5); URINE NITRITE NEG (NEG); URINE PH 8.5 (4.5-7.5); URINE SPECIFIC GRAVITY 1.018 (1.000-1.030); UROBILINOGEN POS (NEG)
[2016-08-03] MEDS ORDERED: PANTOprazole INJ 40 MG in SYRINGE 0 ML IV SCH (09:00)
[2016-08-03 09:10] LABS: MANUAL MICROSCOPIC REQUIRED? NO; REVIEW REQ? NO
--- NOTE | 2016-08-03 10:32 | Critical Care Progress Note ---
Critical Care Progress Note Date of Service Aug 03, 2016. Attending Dr. Gilbert Subjective the pt is improving and waking up, following commands on the vent. full strength times four extremities. Objective she denies pain , no sob, she is bothered by the ETT. no other new symptoms, ROS otherwise was unremarkable. Assessment & Plan #1 OD with amitriptyline . #2 suicidal attempt with major depression. #3 acute resp failure, improving. #4 induced met alkalosis for forsed diuresis of the TCA. #5 aspiration pneumonia on CTX. #6 Hx of HTN. Plan: #1 extubate the pt. #2 continue Ceftriaxone. #3bed side swallow and start oral intake. #4 psych consult , eval for suicidal attempt, in patient vs out patient treatment. #5 prophylaxis for GI and DVT. #6 oral intake. discussed with the staff on rounds in details and with the pt and the family. CCT 45 min. Data Medications: Current Inpatient Medications Medications (Trade) Dose Ordered Sig/William Route Start Time Stop Time Status Last Admin Dose Admin Enoxaparin Sodium (Lovenox Inj) 40 mg QPM SQ 08/02/16 21:00 09/01/16 16:29 08/02/16 21:10 40 MG Fentanyl Citrate (Fentanyl Inj) 25 mcg Q1H PRN IV 08/02/16 16:30 08/16/16 16:29 Ondansetron HCl 4 mg 4 mg Q6H PRN IV 08/02/16 16:30 09/01/16 16:29 Pantoprazole Sodium/Syringe (Protonix Inj/ Syringe) 10 ml @ 5 mls/min DAILY IV 08/03/16 09:00 09/02/16 08:59 08/03/16 08:20 5 MLS/MIN Albuterol/ Ipratropium 3 ml 3 ml Q4 PRN INH 08/02/16 16:30 09/01/16 16:29 Sodium Bicarbonate 75 meq/Potassium Chloride 20 meq/ Sodium Chloride 1,085 ml @ 125 mls/hr Q8H41M IV 08/02/16 18:45 09/01/16 16:29 08/03/16 03:26 125 MLS/HR Ceftriaxone Sodium/Dextrose (Rocephin Inj/ Dextrose Add-Reyno 50ML) 50 ml @ 100 mls/hr Q24H IV 08/02/16 22:00 08/09/16 21:59 08/02/16 21:10 100 MLS/HR Metoprolol Tartrate 5 mg 5 mg Q6 IV. 08/03/16 00:00 09/02/16 00:00 08/03/16 08:20 5 MG Fentanyl Citrate (Fentanyl Drip 1250MCG/250 Nss) 250 ml @ 0 mls/hr Q0M PRN IV 08/02/16 23:15 08/16/16 23:14 08/02/16 23:41 30 MLS/HR I & O: 24-Hour Column 08/03/16 08:00 Intake Total 1182 ml Output Total 675 ml Balance 507 ml Vital Signs: Date Time Temp Pulse Resp B/P Pulse Ox O2 Delivery O2 Flow Rate FiO2 08/03/16 10:00 81 18 129/83 94 Nasal Cannula 1.0 08/03/16 09:00 84 22 151/83 95 Nasal Cannula 2.0 08/03/16 08:20 80 133/83 08/03/16 08:00 36.8 80 22 133/83 99 Mechanical Ventilator 30 08/03/16 08:00 99 Mechanical Ventilator 30 08/03/16 08:00 30 08/03/16 07:40 35 08/03/16 07:35 35 08/03/16 06:00 81 14 132/83 99 Mechanical Ventilator 35 08/03/16 05:19 35 08/03/16 04:00 99 Mechanical Ventilator 35 08/03/16 04:00 37.3 80 14 125/81 99 Mechanical Ventilator 35 08/03/16 04:00 35 08/03/16 02:06 40 08/03/16 01:58 76 14 104/71 99 Mechanical Ventilator 35 08/03/16 00:00 99 Mechanical Ventilator 40 08/03/16 00:00 37.3 76 14 135/86 99 Mechanical Ventilator 40 08/03/16 00:00 40 08/03/16 00:00 81 132/83 08/02/16 23:09 40 08/02/16 22:00 81 14 146/90 99 Mechanical Ventilator 50 08/02/16 20:29 50 08/02/16 20:07 70 08/02/16 20:00 100 Mechanical Ventilator 70 08/02/16 20:00 70 08/02/16 20:00 36.9 75 16 137/84 100 Mechanical Ventilator 70 08/02/16 18:19 36.9 74 18 145/87 100 Mechanical Ventilator 70 08/02/16 18:15 99 08/02/16 17:45 74 16 97 08/02/16 17:43 131/90 08/02/16 17:30 74 16 98 08/02/16 17:28 126/88 08/02/16 17:15 74 16 98 08/02/16 17:13 123/89 08/02/16 17:00 74 16 99 08/02/16 16:50 74 16 129/91 99 Mechanical Ventilator 08/02/16 16:41 100 08/02/16 16:30 76 16 150/88 100 Mechanical Ventilator 08/02/16 16:15 77 16 183/102 100 Mechanical Ventilator 08/02/16 16:00 77 16 171/105 100 Mechanical Ventilator 08/02/16 15:37 85 08/02/16 15:30 35.4 83 20 115/79 97 Mechanical Ventilator 08/02/16 15:20 90 20 148/93 96 Ambu-Bag S1S2 RRR. lungs are with rhonchi. abdomen is benign. no edema. neuro non focal. Laboratory Results: Last 24 Hours Test 08/02/16 15:27 08/02/16 15:28 08/02/16 15:30 08/02/16 15:45 Bedside Blood Gas pH (LAB) 7.39 Bedside Blood Gas pCO2 (LAB) 42 mmHg Bedside Blood Gas pO2 (LAB) 180 mmHg Bedside Blood Gas HCO3 (LAB) 25 meq/L Bedside Blood Gas Total CO2 27 mEq/l Bedside Blood Gas Base Excess (LAB) 0.0 meq/L Bedside Blood Gas O2 Saturation 100.0 % Bedside Hemoglobin 15.0 g/dl Bedside Hematocrit 44 % Bedside Sodium 140 mEq/L Bedside Potassium 3.5 mEq/L Bedside Chloride 101 mEq/L Bedside Total CO2 28 mEq/l Anion Gap 15.0 mmol/L 14.0 mmol/L Bedside Blood Urea Nitrogen 22 mg/dl Bedside Creatinine 0.9 mg/dl Bedside Glucose (other) 114 mg/dl Bedside Ionized Calcium (Raquel) 1.22 mmol/l White Blood Count 14.50 K/uL Red Blood Count 5.13 M/uL Hemoglobin 15.2 g/dL Hematocrit 43.9 % Mean Corpuscular Volume 85.6 fL Mean Corpuscular Hemoglobin 29.6 pg Mean Corpuscular Hemoglobin Concent 34.6 g/dl Platelet Count 233 K/uL Mean Platelet Volume 12.1 fL Neutrophils (%) (Auto) 68.8 % Lymphocytes (%) (Auto) 23.7 % Monocytes (%) (Auto) 6.8 % Eosinophils (%) (Auto) 0.5 % Basophils (%) (Auto) 0.1 % Neutrophils # (Auto) 9.96 K/uL Lymphocytes # (Auto) 3.44 K/uL Monocytes # (Auto) 0.99 K/uL Eosinophils # (Auto) 0.07 K/uL Basophils # (Auto) 0.02 K/uL RDW Standard Deviation 40.7 fL RDW Coefficient of Variation 13.1 % Immature Granulocyte % (Auto) 0.1 % Immature Granulocyte # (Auto) 0.02 K/uL Prothrombin Time 11.4 SECONDS Prothromb Time International Ratio 1.1 Activated Partial Thromboplast Time 21.4 SECONDS Partial Thromboplastin Ratio 0.8 Sodium Level 141 mmol/L Potassium Level mmol/L Chloride Level 105 mmol/L Carbon Dioxide Level 22 mmol/L Blood Urea Nitrogen 18 mg/dl Creatinine 0.93 mg/dl Estimated GFR () 75.3 Estimated GFR (Non- 64.9 BUN/Creatinine Ratio 19.8 Random Glucose 107 mg/dl Calcium Level 9.7 mg/dl Total Bilirubin 1.4 mg/dl Direct Bilirubin mg/dl Aspartate Amino Transf (AST/SGOT) U/L Alanine Aminotransferase (ALT/SGPT) 21 U/L Alkaline Phosphatase 51 U/L Troponin I < 0.015 ng/ml Total Protein 6.5 gm/dl Albumin 3.5 gm/dl Salicylates Level < 1.7 mg/dl Acetaminophen Level < 2 ug/ml Urine Color DK YELLOW Urine Appearance CLOUDY Urine pH 5.5 Urine Specific Twain 1.022 Urine Protein NEG Urine Glucose (UA) NEG Urine Ketones 2+ Urine Occult Blood NEG Urine Nitrite NEG Urine Bilirubin NEG Urine Urobilinogen NEG Urine Leukocyte Esterase NEG Urine WBC (Auto) 1-5 /hpf Urine RBC (Auto) 0-4 /hpf Urine Hyaline Casts (Auto) 1-5 /lpf Urine Epithelial Cells (Auto) >30 /lpf Urine Bacteria (Auto) NEG Test 08/02/16 16:40 08/02/16 16:41 08/02/16 20:25 08/02/16 23:58 Potassium Level 3.2 mmol/L Magnesium Level 1.8 mg/dl Direct Bilirubin 0.3 mg/dl Aspartate Amino Transf (AST/SGOT) 32 U/L Total Creatine Kinase 840 U/L Bedside Lactic Acid Venous 0.78 mmol/L Blood Gas Sample Site R Radial R Radial Bedside Blood Gas pH (LAB) 7.52 7.52 Bedside Blood Gas pCO2 (LAB) 32 mmHg 36 mmHg Bedside Blood Gas pO2 (LAB) 171 mmHg 115 mmHg Bedside Blood Gas HCO3 (LAB) 26 meq/L 29 meq/L Bedside Blood Gas Total CO2 27 mEq/l 30 mEq/l Bedside Blood Gas Base Excess (LAB) 3.0 meq/L 6.0 meq/L Bedside Blood Gas O2 Saturation 100.0 % 99.0 % Aníbal Test Pass Pass Oxygen Delivery Device Ventilator Ventilator Bedside Oxygen Rate (breaths/min) 16 14 Bedside FiO2 70 % 40 % Blood Gas Tidal Volume 450 450 Blood Gas PEEP 5 5 Test 08/03/16 03:45 08/03/16 05:09 08/03/16 08:15 Blood Gas Sample Site L Radial Bedside Blood Gas pH (LAB) 7.53 Bedside Blood Gas pCO2 (LAB) 36 mmHg Bedside Blood Gas pO2 (LAB) 101 mmHg Bedside Blood Gas HCO3 (LAB) 30 meq/L Bedside Blood Gas Total CO2 31 mEq/l Bedside Blood Gas Base Excess (LAB) 7.0 meq/L Bedside Blood Gas O2 Saturation 98.0 % Aníbal Test Pass Oxygen Delivery Device Ventilator Bedside Oxygen Rate (breaths/min) 14 Blood Gas Minute Ventilation 6.2 Bedside FiO2 35 % Blood Gas Tidal Volume 450 Blood Gas PEEP 5 White Blood Count 12.93 K/uL Red Blood Count 4.46 M/uL Hemoglobin 13.3 g/dL Hematocrit 37.8 % Mean Corpuscular Volume 84.8 fL Mean Corpuscular Hemoglobin 29.8 pg Mean Corpuscular Hemoglobin Concent 35.2 g/dl Platelet Count 217 K/uL Mean Platelet Volume 11.5 fL Neutrophils (%) (Auto) 77.8 % Lymphocytes (%) (Auto) 14.6 % Monocytes (%) (Auto) 7.0 % Eosinophils (%) (Auto) 0.2 % Basophils (%) (Auto) 0.2 % Neutrophils # (Auto) 10.07 K/uL Lymphocytes # (Auto) 1.89 K/uL Monocytes # (Auto) 0.90 K/uL Eosinophils # (Auto) 0.02 K/uL Basophils # (Auto) 0.02 K/uL RDW Standard Deviation 40.1 fL RDW Coefficient of Variation 13.1 % Immature Granulocyte % (Auto) 0.2 % Immature Granulocyte # (Auto) 0.03 K/uL Sodium Level 144 mmol/L Potassium Level 3.4 mmol/L Chloride Level 104 mmol/L Carbon Dioxide Level 30 mmol/L Anion Gap 10.0 mmol/L Blood Urea Nitrogen 20 mg/dl Creatinine 0.99 mg/dl Est Creatinine Clear Calc Drug Dose 60.0 ml/min Estimated GFR () 69.8 Estimated GFR (Non- 60.2 BUN/Creatinine Ratio 19.8 Random Glucose 107 mg/dl Calcium Level 8.4 mg/dl Magnesium Level 1.9 mg/dl Total Bilirubin 1.7 mg/dl Direct Bilirubin 0.4 mg/dl Aspartate Amino Transf (AST/SGOT) 34 U/L Alanine Aminotransferase (ALT/SGPT) 25 U/L Alkaline Phosphatase 53 U/L Total Protein 5.7 gm/dl Albumin 3.0 gm/dl Urine Color DK YELLOW Urine Appearance TURBID Urine pH 8.5 Urine Specific Twain 1.018 Urine Protein NEG Urine Glucose (UA) NEG Urine Ketones 2+ Urine Occult Blood NEG Urine Nitrite NEG Urine Bilirubin NEG Urine Urobilinogen POS Urine Leukocyte Esterase SMALL Urine WBC (Auto) 1-5 /hpf Urine RBC (Auto) 5-10 /hpf Urine Hyaline Casts (Auto) 5-10 /lpf Urine Epithelial Cells (Auto) >30 /lpf Urine Bacteria (Auto) NEG
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
[2016-08-03 16:10] LABS: BUN/CREATININE RATIO 15.2 (10-20); CALCIUM 8.5 mg/dl (8.5-10.1); CREATININE 0.97 mg/dl (0.60-1.20); POTASSIUM 3.3 mmol/L (3.5-5.1)
--- NOTE | 2016-08-03 17:14 | Family Medicine Progress Note ---
Progress Note Date of Service Aug 03, 2016. Subjective Pt evaluation today including: conversation w/ patient, physical exam, chart review, lab review, conversation w/ senior [employer] consultant, review of inpatient medication list Pain: 0/10 PO Intake: WNL Voiding: no voiding problems Patient was extubated this morning and tolerated well Admits to TCA overdose and states that it was in fact a suicide attempt. She had had it years ago before but was talked out of it by her PCP. She was on Elavil since then and states she had a stable mood. According to the patient she was recently d/c from this 2 months prior and has had increasing SI since then. She states she regrets it and has no SI but according to the RN she was asking family members to bring razor blades to the hospital She is willing to stay for inpt psych She also has concerns for her whom is legally blind and she is worried he will not get his medications. customer care manager is aware Constitutional: No fever Eyes: No worsening of vision ENT: No hearing loss Respiratory: No cough, No dyspnea on exertion, No shortness of breath, No sputum, No wheezing Cardiovascular: No chest pain Abdomen: No constipation, No diarrhea, No nausea, No pain, No vomiting Musculoskeletal: No joint pain, No muscle pain Female : No dysuria, No hematuria Neurologic: No memory loss, No weakness Psychiatric: No anxiety, No depression symptoms Endo: No fatigue Medications Medications Administered Medications (Trade) Dose Ordered Sig/William Route Start Time Stop Time Status Last Admin Dose Admin Sodium Bicarbonate/ Dextrose (Sodium Bicarbonate 8.4% Inj/D5W 1000ml) 1,150 ml @ 100 mls/hr [id number] IV 08/02/16 15:45 08/02/16 18:19 DC 08/02/16 16:03 100 MLS/HR Sodium Bicarbonate (Sodium Bicarbonate 8.4% Inj) 50 meq NOW STAT IV 08/02/16 15:34 08/02/16 15:35 DC 08/02/16 16:02 50 MEQ Magnesium Sulfate (Magnesium Sulfate) 2 gm NOW STAT IV 08/02/16 15:34 08/02/16 15:35 DC 08/02/16 16:04 2 GM Piperacillin Sod/ Tazobactam Sod (Zosyn Iv) 4.5 gm NOW STAT IV 08/02/16 16:04 08/02/16 16:05 DC 08/02/16 17:01 4.5 GM Enoxaparin Sodium 40 mg 40 mg QPM SQ 08/02/16 21:00 08/03/16 13:38 DC 08/02/16 21:10 40 MG Pantoprazole Sodium 40 mg/ Syringe 10 ml @ 5 mls/min DAILY IV 08/03/16 09:00 08/03/16 13:38 DC 08/03/16 08:20 5 MLS/MIN Sodium Bicarbonate 75 meq/Potassium Chloride 20 meq/ Sodium Chloride 1,085 ml @ 125 mls/hr [id number] IV 08/02/16 18:45 08/03/16 13:38 DC 08/03/16 12:10 125 MLS/HR Ceftriaxone Sodium/Dextrose (Rocephin Inj/ Dextrose Add-Bluejacket 50ML) 50 ml @ 100 mls/hr Q24H IV 08/02/16 22:00 08/09/16 21:59 08/02/16 21:10 100 MLS/HR Metoprolol Tartrate (Lopressor Iv) 5 mg Q6 IV. 08/03/16 00:00 08/03/16 13:38 DC 08/03/16 12:09 5 MG Influenza Virus Vaccine Quadrival 0.5 ml 0.5 ml ONCE ONCE IM. 08/02/16 21:45 08/02/16 21:46 DC 08/03/16 08:03 0.5 ML Fentanyl Citrate 250 ml @ 0 mls/hr Q0M PRN IV 08/02/16 23:15 08/03/16 13:38 DC 08/02/16 23:41 30 MLS/HR Magnesium Sulfate/ Prmx (Magnesium Sulfate/Premixed D5W) 100 ml @ 100 mls/hr Q1H IV 08/03/16 05:30 08/03/16 07:29 DC 08/03/16 05:43 100 MLS/HR Objective Vital Signs Date Time Temp Pulse Resp B/P Pulse Ox O2 Delivery O2 Flow Rate FiO2 08/03/16 16:00 95 Room Air 08/03/16 16:00 90 20 125/72 95 Room Air 08/03/16 14:00 61 18 120/77 90 Room Air 08/03/16 12:09 94 124/77 08/03/16 12:00 95 Nasal Cannula 1.0 08/03/16 12:00 91 20 124/77 94 Nasal Cannula 1.0 08/03/16 11:00 86 16 134/89 93 Nasal Cannula 1.0 08/03/16 10:00 81 18 129/83 94 Nasal Cannula 1.0 08/03/16 09:00 84 22 151/83 95 Nasal Cannula 2.0 08/03/16 08:20 80 133/83 08/03/16 08:00 Mechanical Ventilator 35 08/03/16 08:00 36.8 80 22 133/83 99 Mechanical Ventilator 30 08/03/16 08:00 99 Mechanical Ventilator 30 08/03/16 08:00 30 08/03/16 07:40 35 08/03/16 07:35 35 08/03/16 06:00 81 14 132/83 99 Mechanical Ventilator 35 08/03/16 05:19 35 08/03/16 04:00 99 Mechanical Ventilator 35 08/03/16 04:00 37.3 80 14 125/81 99 Mechanical Ventilator 35 08/03/16 04:00 35 08/03/16 02:06 40 08/03/16 01:58 76 14 104/71 99 Mechanical Ventilator 35 08/03/16 00:00 99 Mechanical Ventilator 40 08/03/16 00:00 37.3 76 14 135/86 99 Mechanical Ventilator 40 08/03/16 00:00 40 08/03/16 00:00 81 132/83 08/02/16 23:09 40 08/02/16 22:00 81 14 146/90 99 Mechanical Ventilator 50 08/02/16 20:29 50 08/02/16 20:07 70 08/02/16 20:00 100 Mechanical Ventilator 70 08/02/16 20:00 70 08/02/16 20:00 36.9 75 16 137/84 100 Mechanical Ventilator 70 08/02/16 18:19 36.9 74 18 145/87 100 Mechanical Ventilator 70 08/02/16 18:15 99 08/02/16 17:45 74 16 97 08/02/16 17:43 131/90 08/02/16 17:30 74 16 98 08/02/16 17:28 126/88 Physical Exam General Appearance: WD/WN, no apparent distress Eyes: normal inspection ENT: normal ENT inspection Neck: supple Respiratory/Chest: lungs clear, normal breath sounds, no respiratory distress, no accessory muscle use Cardiovascular: regular rate, rhythm, no murmur Abdomen: normal bowel sounds, non tender, soft Extremities: non-tender, normal inspection, no calf tenderness Neurologic/Psychiatric: alert, normal mood/affect, oriented x 3 Skin: normal color, warm/dry, no rash Lymphatic: no adenopathy Laboratory Results Results Past 24 Hours Test 08/02/16 20:25 08/02/16 23:58 08/03/16 03:45 08/03/16 05:09 Range/Units Blood Gas Sample Site R Radial R Radial L Radial Bedside Blood Gas pH (LAB) 7.52 7.52 7.53 7.35-7.45 Bedside Blood Gas pCO2 (LAB) 32 36 36 35-46 mmHg Bedside Blood Gas pO2 (LAB) 171 115 101 80-95 mmHg Bedside Blood Gas HCO3 (LAB) 26 29 30 19-24 meq/L Bedside Blood Gas Total CO2 27 30 31 24-31 mEq/l Bedside Blood Gas Base Excess (LAB) 3.0 6.0 7.0 -9-1.8 meq/L Bedside Blood Gas O2 Saturation 100.0 99.0 98.0 90-95 % Aníbal Test Pass Pass Pass Oxygen Delivery Device Ventilator Ventilator Ventilator Bedside Oxygen Rate (breaths/min) 16 14 14 Bedside FiO2 70 40 35 % Blood Gas Tidal Volume 450 450 450 Blood Gas PEEP 5 5 5 Blood Gas Minute Ventilation 6.2 White Blood Count 12.93 4.8-10.8 K/uL Red Blood Count 4.46 4.2-5.4 M/uL Hemoglobin 13.3 12.0-16.0 g/dL Hematocrit 37.8 37-47 % Mean Corpuscular Volume 84.8 80-100 fL Mean Corpuscular Hemoglobin 29.8 25-34 pg Mean Corpuscular Hemoglobin Concent 35.2 32-36 g/dl Platelet Count 217 130-400 K/uL Mean Platelet Volume 11.5 7.4-10.4 fL Neutrophils (%) (Auto) 77.8 % Lymphocytes (%) (Auto) 14.6 % Monocytes (%) (Auto) 7.0 % Eosinophils (%) (Auto) 0.2 % Basophils (%) (Auto) 0.2 % Neutrophils # (Auto) 10.07 1.4-6.5 K/uL Lymphocytes # (Auto) 1.89 1.2-3.4 K/uL Monocytes # (Auto) 0.90 0.11-0.59 K/uL Eosinophils # (Auto) 0.02 0-0.5 K/uL Basophils # (Auto) 0.02 0-0.2 K/uL RDW Standard Deviation 40.1 36.4-46.3 fL RDW Coefficient of Variation 13.1 11.5-14.5 % Immature Granulocyte % (Auto) 0.2 % Immature Granulocyte # (Auto) 0.03 0.00-0.02 K/uL Sodium Level 144 136-145 mmol/L Potassium Level 3.4 3.5-5.1 mmol/L Chloride Level 104 98-107 mmol/L Carbon Dioxide Level 30 21-32 mmol/L Anion Gap 10.0 3-11 mmol/L Blood Urea Nitrogen 20 7-18 mg/dl Creatinine 0.99 0.60-1.20 mg/dl Est Creatinine Clear Calc Drug Dose 60.0 ml/min Estimated GFR () 69.8 Estimated GFR (Non- 60.2 BUN/Creatinine Ratio 19.8 10-20 Random Glucose 107 70-99 mg/dl Calcium Level 8.4 8.5-10.1 mg/dl Magnesium Level 1.9 1.8-2.4 mg/dl Total Bilirubin 1.7 0.2-1 mg/dl Direct Bilirubin 0.4 0-0.2 mg/dl Aspartate Amino Transf (AST/SGOT) 34 15-37 U/L Alanine Aminotransferase (ALT/SGPT) 25 12-78 U/L Alkaline Phosphatase 53 45-117 U/L Total Protein 5.7 6.4-8.2 gm/dl Albumin 3.0 3.4-5.0 gm/dl Test 08/03/16 08:15 08/03/16 15:30 Range/Units Urine Color DK YELLOW Urine Appearance TURBID CLEAR Urine pH 8.5 4.5-7.5 Urine Specific [place] 1.018 1.000-1.030 Urine Protein NEG NEG Urine Glucose (UA) NEG NEG Urine Ketones 2+ NEG Urine Occult Blood NEG NEG Urine Nitrite NEG NEG Urine Bilirubin NEG NEG Urine Urobilinogen POS NEG Urine Leukocyte Esterase SMALL NEG Urine WBC (Auto) 1-5 0-5 /hpf Urine RBC (Auto) 5-10 0-4 /hpf Urine Hyaline Casts (Auto) 5-10 0-5 /lpf Urine Epithelial Cells (Auto) >30 0-5 /lpf Urine Bacteria (Auto) NEG NEG Sodium Level 142 136-145 mmol/L Potassium Level 3.3 3.5-5.1 mmol/L Chloride Level 103 98-107 mmol/L Carbon Dioxide Level 30 21-32 mmol/L Anion Gap 9.0 3-11 mmol/L Blood Urea Nitrogen 15 7-18 mg/dl Creatinine 0.97 0.60-1.20 mg/dl Est Creatinine Clear Calc Drug Dose 61.3 ml/min Estimated GFR () 71.5 Estimated GFR (Non- 61.7 BUN/Creatinine Ratio 15.2 10-20 Random Glucose 120 70-99 mg/dl Calcium Level 8.5 8.5-10.1 mg/dl Microbiology Results 08/02/16 MRSA DNA Surveillance Screen - Final, Complete Specimen Negative for MRSA by DNA Probe 08/03/16 Urine Culture, Received Pending Assessment and Plan 66 yo female that presented to ED with acute hypoxic respiratory failure and metabolic encephalopathy secondary to TCA overdose. She is extubated now and is pending placement to inpatient psych as she is medically cleared for placement. Metabolic encephalopathy secondary to TCA overdose r/t suicidal ideation- resolved - QTc was prolonged >600 however improving - sodium bicarb was d/c earlier today - monitor on tele until placement for patient can be decided - one to one - recheck QTc in am Acute hypoxic respiratory failure secondary to TCA overdose- improved - continue to monitor for sins of respiratory distress Hypokalemia - most likely secondary to Na bicarb administration - will recheck in am - replete prn Depression/ Anxiety/ SI - considering QTc all medications psych related will be held - Psych consult- appreciate input - pending psych placement Right sided PNA on CXR- was most likely a mucus plug vs atelectasis -will d/c antibiotics and recheck CBC - changes have resolved on CXR Hypothermia- resolved - continue to monitor temp DVT prophylaxis - lovenox Full resus Resident Physician Supervision Note: I interviewed and examined the patient. Discussed with [Samuel] and agree with findings and plan as documented in the note. Any exceptions or clarifications are listed here: [None] Documented By: Everette Woods asks ICU staff for razor blades, then tells me that she needs to get home to take care of her . agrees to inpatient psych, but "only if i can go home for a few days to get my 's meds out and do laundry for him" understands that if she kills herself her concerns on who will take care of her will persist vitals noted, nad, fatigued appearing, calm, QTC shortening but still a little long TCA OD in suicide attempt - improving. for psych once bed available, follow QTC Continued [facility] stay due to: other Discharge planning: uncertain
[2016-08-03] MEDS ORDERED: CEFUROXIME AXETIL 500 MG TAB PO SCH (18:00)
--- NOTE | 2016-08-03 18:44 | Psych Management Progress Note ---
Psychiatry Miscellaneous Date of Service: Aug 03, 2016. Liaison asked that I assess patient for 302 commitment, primary service completed exam. Patient had medically significant OD and is minimizing need for treatment, focussed on getting home to , unable/willing to meaningfully commit to treatment under 201 guidelines. Reviewed with patient need for treatment and nature of 302 commitment following review of initial consult. Based on MSE completed exam portion of 302 commitment.
--- NOTE | 2016-08-03 20:38 | Discharge Instructions ---
Discharge Instructions Admission Reason for Admission: Respiratory Failure,Tricyclic Antidepressant Overd Discharge Discharge Diagnosis / Problem: TCA overdose / Suicidal attempt Discharge Goals Goal(s): Improve disease control Activity Recommendations Activity Level: Assistance Required . Additional Information Patient informed of condition: Yes Advance Directives: No DNR: No Level of Care: Other Communicable Disease: No Prognosis: Improving Instructions / Follow-Up Instructions / Follow-Up Section 302 to Inpatient Psych Current Hospital Diet Patient's current hospital diet: Regular Diet Discharge Diet Recommended Diet: Regular Diet Pending Studies Studies pending at discharge: no Physician Orders On Transfer POLST Discussion: without POLST completion Medical Emergencies . Who to Call and When: Medical Emergencies: If at any time you feel your situation is an emergency, please call 911 immediately. . Non-Emergent Contact Non-Emergency issues call your: Primary Care Provider . . "Provider Documentation" section prepared by Shruthi Barboza. Core Measure Problem Core Measures: None
[2016-08-03] MEDS ORDERED: ATORVASTATIN 10 MG TAB PO SCH (21:00)
[2016-08-03] MEDS ORDERED: CHOLECALCIFEROL 1000 INTER.UNIT TAB PO SCH (21:00)
[2016-08-04] MEDS ORDERED: ATORVASTATIN 10 MG TAB PO SCH (09:00)
[2016-08-04] MEDS ORDERED: LISINOPRIL 10 MG TAB PO SCH ×2 (09:00)
[2016-08-04] MEDS ORDERED: CHOLECALCIFEROL 1000 INTER.UNIT TAB PO SCH (09:00)
[2016-08-04] MEDS ORDERED: PANTOprazole SOD 40 MG TAB PO SCH (09:00)
[2016-08-04] MEDS ORDERED: AMT50 PO (12:10)
[2016-08-04] MEDS ORDERED: ALPR1TAB3 PO (12:10)
[2016-08-04] MEDS ORDERED: GABA-113 PO (12:10)
[2016-08-04] MEDS ORDERED: FLUT0.15 NAE (12:10)
[2016-08-04] MEDS ORDERED: GDN/80 PO (12:10)
[2016-08-04] MEDS ORDERED: ZOLP5TAB PO (12:10)
[2016-08-04] MEDS ORDERED: MIRT30TA2 PO (12:10)
[2016-08-04] MEDS ORDERED: ESTCR PV (12:29)
--- NOTE | 2016-08-04 15:01 | Discharge Summary ---
Discharge Summary Admission Date: Aug 02, 2016 at 16:26 Discharge Date: Aug 03, 2016 Discharge Disposition: Acute care mental health Principal Diagnosis: SI TCA OD Immunizations: Have You Had Influenza Vaccine: No History of Tetanus Vaccine?: Yes Tetanus Immunization Date: May 04, 2005 History of Pneumococcal: No History of Hepatitis B Vaccine: No Procedures: Intubation and mechanical ventilation Consultations: Psych (Marianna Baker MD) Discharge Date: Aug 03, 2016 (Everette Woods D.O.) Medication Reconciliation Continued Medications: Atorvastatin (Lipitor) 10 Mg Tab 10 MG PO QPM, TAB Cholecalciferol (Vitamin D) 1,000 Inter.unit Tab 1000 INTER.UNIT PO BID, TAB Lisinopril (Zestril) 10 Mg Tab 10 MG PO DAILY, TAB Metformin Hcl (Glucophage) 500 Mg Tab 500 MG PO BID, TAB Omeprazole (Prilosec) 20 Mg Capcr 20 MG PO DAILY, CAP Discontinued Medications: Alprazolam (Xanax) 1 Mg Tab 1 MG PO DAILY, #30 Amitriptyline HCl (Amitriptyline HCl) 25 Mg Tab 250 MG PO HS Doxepin Hcl (Doxepin) 100 Mg Cap 100 MG PO QPM, #30 Gabapentin (Neurontin) 300 Mg Cap 300 MG PO TID, CAP Meloxicam (Mobic) 15 Mg Tab 7.5 MG PO DAILY, TAB Mirtazapine (Mirtazapine) 15 Mg Tab 30 MG PO HS Ziprasidone (Geodon *) 80 Mg Cap 160 MG PO HS, 0 Refills Discharge Exam Patient was medically cleared for psych inpatient She was agreeable to admission to inpatient psych for further evaluation and treatment Review of Systems: Constitutional: No fever Eyes: No worsening of vision ENT: No hearing loss Respiratory: No cough, No dyspnea at rest, No dyspnea on exertion, No shortness of breath, No sputum, No wheezing Cardiovascular: No chest pain Abdomen: No nausea, No pain, No vomiting Musculoskeletal: No joint pain, No muscle pain Genitourinary - Female: No dysuria Neurologic: No balance problems, No memory loss, No numbness/tingling Psychiatric: + depression symptoms Endocrine: + fatigue Integumentary: No rash Physical Exam: General Appearance: WD/WN, no apparent distress Eyes: normal inspection ENT: normal ENT inspection Neck: supple Respiratory/Chest: lungs clear, normal breath sounds, no respiratory distress, no accessory muscle use Cardiovascular: regular rate, rhythm, no murmur Abdomen / GI: normal bowel sounds, non tender, soft Extremities: normal inspection, no calf tenderness Neurologic/Psychiatric: alert, oriented x 3, + depressed affect Skin: normal color, warm/dry, no rash Lymphatic: no adenopathy (Marianna Baker MD) Hospital Course 66 yo female that presented to ED with acute hypoxic respiratory failure and metabolic encephalopathy secondary to TCA overdose. Patient was admitted to the ICU and was placed on a mechanical ventilator until weaned. Once extubated the patient was interviewed and she in fact took the TCA as suicide as an intent. We discussed her depression and she has been having SI for 2 months, since her Elavil was d/c. She was agreeable to inpatient treatment in the psych unit. She was noted to have a prolonged QTc but there was improvement during her hospital stay. She was also slightly hypokalemic which is most likely secondary to the sodium bicarb she received for the TCA overdose. It was not repleted and a repeat EKG and BMP in 24 hours was recommended. Metabolic encephalopathy secondary to TCA overdose r/t suicidal ideation- resolved - QTc was prolonged >600 however improving - recheck QTc in am - admission to inpatient psych Hypokalemia - most likely secondary to Na bicarb administration - recheck in am Depression/ Anxiety/ SI - considering QTc all medications psych related will be held - reevaluated psych medications during the inpatient psych admission Right sided PNA on CXR- was most likely a mucus plug vs atelectasis - will d/c antibiotics - changes have resolved on CXR DVT prophylaxis received - lovenox Full resus Total Time Spent: Less than 30 minutes This includes examination of the patient, discharge planning, medication reconciliation, and communication with other providers. (Marianna Baker MD) Resident Physician Supervision Note: I interviewed and examined the patient. Discussed with Dr. Baker and agree with findings and plan as documented in the note. Any exceptions or clarifications are listed here: None Documented By: Everette Woods physically feeling Ok. still suicidal - alternately asks for razor blades then asks if she can get home to be with . QTc shortening. stable for psych. see progress note 08/03. discharge summary done late due to bed opening at [facility] late in the day. (Everette Woods D.O.) Discharge Instructions Please refer to the electronic Patient Visit Report (Discharge Instructions) for additional information. (Marianna Baker MD) Additional Copies To Rachid Laws D.O.Int.Med.
== END 2016-08-03 20:47 | DRG 917 ==
LOC: ENRESERVDT → ENRESERVTM → EDBD 15:16 → C.ED 15:17 → C.MSICU 16:26 → CANBEDREQ 08-03 14:13
PROVIDERS: ADMIT Internal Medicine; ATTEND Family Medicine
PROC: 5A1935Z Respiratory Ventilation, Less than 24 Consecutive Hours (ICD-10-PCS; principal; 2016-08-02)
DX: T43.012A Poisoning by tricyclic antidepressants, intentional self-harm, initial encounter (principal); G93.41 Metabolic encephalopathy; G92 Toxic encephalopathy; J69.0 Pneumonitis due to inhalation of food and vomit; J96.01 Acute respiratory failure with hypoxia; F33.2 Major depressive disorder, recurrent severe without psychotic features; R45.851 Suicidal ideations; E87.2 Acidosis; I10 Essential (primary) hypertension; I45.81 Long QT syndrome; R40.2432 Glasgow coma scale score 3-8, at arrival to emergency department; E87.6 Hypokalemia; F41.9 Anxiety disorder, unspecified; M51.36 Other intervertebral disc degeneration, lumbar region; R68.0 Hypothermia, not associated with low environmental temperature; M54.9 Dorsalgia, unspecified; Z23 Encounter for immunization; J44.9 Chronic obstructive pulmonary disease, unspecified; Z79.899 Other long term (current) drug therapy; Z79.1 Long term (current) use of non-steroidal anti-inflammatories (NSAID); Z79.4 Long term (current) use of insulin

== ENCOUNTER 2016-08-03 20:47 | Inpatient (IN) | payer OTHER ==
[~2016-08-03] VITALS: Ht 170.2 cm; Wt 77.5 kg
[~2016-08-03 20:47] MED LIST changes: +ALPR-385 PO; +AMT/25 PO; +LISI-461 PO; -MDRDP21 PO; -OMEGCAP2 PO; +RMR15 PO
[2016-08-03] MEDS ORDERED: NURSING VERBAL MED ORDER ONE (21:00)
[2016-08-03 21:04] VITALS: BP 162/101; PULSE 93; TEMP 36.8; Ht 170.2 cm; Wt 77.5 kg
[2016-08-03] MEDS ORDERED: ALBUTEROL HFA 8 GM INHALER INH PRN (21:15)
[2016-08-03] MEDS ORDERED: POTASSIUM CHLORIDE 20 MEQ TABCR PO ONE (21:15)
[2016-08-03] MEDS ORDERED: BISMUTH SUBSALICYLATE PER ML OMNICELL CHARGE PO PRN (21:15)
[2016-08-03] MEDS ORDERED: hydrOXYzine HCL 25 MG TAB PO PRN (21:15)
[2016-08-03] MEDS ORDERED: SODIUM CHLORIDE 0.65% NA SOLN 45 ML (OCEAN) PRN (21:15)
[2016-08-03] MEDS ORDERED: ALUMINUM/MAGNESIUM SUSP 30 ML UDC PO PRN (21:15)
[2016-08-03] MEDS ORDERED: MAGNESIUM HYDROXIDE SUSP 30 ML UDC PO PRN (21:15)
[2016-08-03] MEDS: GABAPENTIN 300 MG CAP PO SCH (22:01)
[2016-08-03] MEDS: METFORMIN HCL 500 MG TAB PO SCH (22:01)
[2016-08-03] MEDS: MIRTAZAPINE TAB 15 MG TAB PO SCH (22:02)
[2016-08-03] MEDS: CHOLECALCIFEROL 1000 INTER.UNIT TAB PO SCH (22:02)
[2016-08-03] MEDS: ZIPRASIDONE 20 MG CAP PO SCH (22:03)
[2016-08-04 07:10] VITALS: BP_SYST 116; BP_SYST 145; BP_DIAS 77; BP_DIAS 86; PULSE 86; PULSE 90; TEMP 36.8
[2016-08-04 08:20] LABS: BUN/CREATININE RATIO 14.4 (10-20); CALCIUM 9.1 mg/dl (8.5-10.1); POTASSIUM 3.3 mmol/L (3.5-5.1)
[2016-08-04] MEDS: CEFUROXIME AXETIL 500 MG TAB PO SCH (08:41)
[2016-08-04] MEDS: PANTOprazole SOD 40 MG TAB PO SCH (08:41)
[2016-08-04] MEDS: METFORMIN HCL 500 MG TAB PO SCH ×2 (08:41→17:38)
[2016-08-04] MEDS: GABAPENTIN 300 MG CAP PO SCH ×3 (08:41→21:18)
[2016-08-04] MEDS: CHOLECALCIFEROL 1000 INTER.UNIT TAB PO SCH ×2 (08:42→21:17)
[2016-08-04] MEDS: LISINOPRIL 10 MG TAB PO SCH (08:42)
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
[2016-08-04] MEDS ORDERED: FLUT0.15 NAE (12:10)
[2016-08-04] MEDS ORDERED: AMT50 PO (12:10)
[2016-08-04] MEDS ORDERED: ALPR1TAB3 PO (12:10)
[2016-08-04] MEDS ORDERED: MIRT30TA2 PO (12:10)
[2016-08-04] MEDS ORDERED: GABA-113 PO (12:10)
[2016-08-04] MEDS ORDERED: GDN/80 PO (12:10)
[2016-08-04] MEDS ORDERED: ZOLP5TAB PO (12:10)
[2016-08-04] MEDS ORDERED: ESTCR PV (12:29)
[2016-08-04] MEDS ORDERED: CETIRIZINE HCL 10 MG TAB PO ONE (12:33)
[2016-08-04] MEDS: ATORVASTATIN 10 MG TAB PO SCH (21:16)
[2016-08-04] MEDS: ZIPRASIDONE 20 MG CAP PO SCH (21:17)
[2016-08-04] MEDS: MIRTAZAPINE TAB 15 MG TAB PO SCH (21:17)
[2016-08-04] MEDS ORDERED: NURSING VERBAL MED ORDER ONE (21:30)
[2016-08-04] MEDS ORDERED: TRAZODONE HCL 50 MG TAB PO SCH (22:00)
[2016-08-05] MEDS: hydrOXYzine HCL 25 MG TAB PO PRN ×2 (00:03→21:26)
[2016-08-05 07:01] VITALS: BP_SYST 150; BP_SYST 175; BP_DIAS 84; BP_DIAS 97; PULSE 89; PULSE 93; TEMP 36.8
[2016-08-05 08:01] LABS: POTASSIUM 3.5 mmol/L (3.5-5.1)
[2016-08-05 08:08] LABS: CHOLESTEROL/HDL RATIO 2.7
[2016-08-05] MEDS: CEFUROXIME AXETIL 500 MG TAB PO SCH (08:56)
[2016-08-05] MEDS: PANTOprazole SOD 40 MG TAB PO SCH (08:57)
[2016-08-05] MEDS: CHOLECALCIFEROL 1000 INTER.UNIT TAB PO SCH ×2 (08:57→21:26)
[2016-08-05] MEDS: METFORMIN HCL 500 MG TAB PO SCH ×2 (08:57→17:39)
[2016-08-05] MEDS: GABAPENTIN 300 MG CAP PO SCH ×3 (08:57→21:25)
[2016-08-05] MEDS: CETIRIZINE HCL 10 MG TAB PO SCH (08:58)
[2016-08-05] MEDS: LISINOPRIL 10 MG TAB PO SCH (08:58)
--- NOTE | 2016-08-05 12:36 | Psychiatric Progress Notes ---
Progress Note Date of Service Aug 05, 2016. Interval History 66 yo female admitted initially to the medical floor following a toxic ingestion of amitriptyline and alprazolam in a suicide attempt, and was medically cleared for transfer to [facility] on 08/03. Stressor include poor sleep, dark weather, and the need to care for her boyfriend. Chief Complaint "I didn't sleep last night. ". Subjective Patient was seen & assessed interval progress reviewed with Treatment Team. The patient remains concerned about her poor sleep, saying she got little last night, despite starting on trazodone and using prn vistaril. Her mood remains low, but denies SI. She had a meeting with her boyfriend Marcellus and his son yesterday. They talked about Marcellus's medical concerns, and Deborah's concerns about his care without her being home. His son reassured her that he would help his father with food and medications. Deborah is hesitant to commit to OP therapy after discharge due to her concerns for going out in bad weather. She was willing to consider if [facility] could be arranged. She is anxious to get home, but agrees that if her sleep is a problem then she needs to stay. I reviewed my conversation with Dr. Stoner yesterday in which he said that he thought it would be better if she could find an alternate provider, but said that he would not abandon her if she couldn't, would see her back but work with her on finding another provider. Review of Systems Constitutional: + fatigue ENT: + problem reported (No upper dentures) Respiratory: No cough, No dyspnea at rest, No dyspnea on exertion, No hemoptysis, No problem reported, No shortness of breath, No sputum, No wheezing Cardiovascular: No PND, No chest pain, No claudication, No edema, No orthopnea , No palpitations, No problem reported Abdomen: No GI bleeding, No constipation, No diarrhea, No nausea, No pain, No problem reported, No vomiting Musculoskeletal: No calf pain, No joint pain, No muscle pain, No problem reported, No swelling Neurologic: No balance problems, No memory loss, No numbness/tingling, No paralysis, No problem reported, No vertigo, No weakness Psychiatric: + anxiety, + depression symptoms, + insomnia Integumentary: No bleeding, No color change, No itch, No new/changing skin lesions, No problem reported, No rash Sleep Information Total Hours of Sleep: 6.00 Meal Information Percent of Breakfast Consumed: 90 Percent of Lunch Consumed: 50 Percent of Dinner Consumed: 85 Mental Status Exam During interview pt is: alert and oriented, cooperative Appearance: appropriately dressed, disheveled Eye contact is: good Motor behavior is: steady gait & station, no abnormal motor movements Speech: normal in rate, rhythm & volume Affect: mood congruent, flat Mood is: depressed Thought process: goal directed, clear, coherent Thought content: reality based without delusions Suicidal thought are: denied Homicidal thoughts are: denied Hallucinations: denies auditory, denies visual Cognition: memory grossly intact, attention grossly intact Intelligence estimated to be: average Insight: impaired Judgement: impaired Impression Patient remains depressed, with insomnia today. Trazodone was not effective at 50 mg. and so will increase to 100 mg. daily. Confirmed OP Geodon dose and will increase to 160 mg. with dinner. She may have been taking it at bedtime at home, and therefore not absorbing all of it. Encouraged to also use the prn vistaril if Trazodone ineffective. Plan (1) Major depressive disorder, recurrent severe without psychotic features 08/05 - Increase Geodon to OP dose of 160 mg. with dinner - Increase Trazodone to 100 mg. to target insomnia - Q 15 min checks for safety - Encourage participation in group and individual counseling - FAmily meeting held with BRITTA Germain yesterday - The patient will need psychiatric aftercare including therapy - Assist the patient to learn and utilize additional healthy coping strategies. - Encourage good sleep hygiene, including exercise, no daytime naps, reduced caffeine - Monitoring labs on Geodon completed. FLP WNL, fasting glucose 104 (2) Anxiety disorder, unspecified 08/05 - No BZD in view of OD - Encourage use of prn vistaril - Expose the patient to mindfulness, relaxation, breathing exercises. - Increase Buspar to 10 mg. TID (3) Dyslipidemia (4) Diabetes type 2, controlled 08/05 - Continue metformin - BSG's BID - Diabetic diet - Encourage exercise (5) Chronic GERD 08/05 - Convert Prilosec to Protonix Discharge / Aftercare Planning Primary Care Physician: Name: Rachid Laws DO Psychiatrist: Name: Kia LUONG Date of Appointment: Aug 31, 2016 Time of Appointment: 10am Therapist: Name: none, willing to start therapy in October. Visit Code E&M Code: 80501 Risk Factors Assessment : Yes /single/: No Higher / Fall in social status: No Access to guns: No Health problems: Yes Mental Health Diagnoses: Yes Substance use disorders: No Previous attempt: Yes Previous psychiatric stay: Yes Smoker: No Protective Factors Assessment Taoist beliefs: No : No Responsible for young children: No Employed: No Stable relationships: Yes Supportive family: Yes Data Vital Signs Last 24 Hrs: Date Time Temp Pulse Resp B/P Pulse Ox O2 Delivery O2 Flow Rate FiO2 08/05/16 07:01 36.8 89 18 175/97 93 150/84 Meds Administered Last 24 Hrs: Meds Administered (Past 24Hrs) Medications (Trade) Dose Ordered Sig/William Route Start Time Stop Time Status Last Admin Dose Admin Hydroxyzine HCl (Vistaril Tab) 50 mg HSZ PRN PO 08/03/16 21:15 09/02/16 21:14 08/05/16 00:03 50 MG Atorvastatin Calcium (Lipitor Tab) 10 mg QPM PO 08/04/16 21:00 09/03/16 20:59 08/04/16 21:16 10 MG Cholecalciferol (Vitamin D Tab) 1,000 inter.unit BID PO 08/03/16 22:00 09/02/16 21:59 08/05/16 08:57 1,000 INTER.UNIT Lisinopril (Zestril Tab) 10 mg DAILY PO 08/04/16 09:00 09/03/16 08:59 08/05/16 08:58 10 MG Metformin HCl (Glucophage Tab) 500 mg BIDM PO 08/03/16 22:00 09/02/16 21:59 08/05/16 08:57 500 MG Pantoprazole Sodium (Protonix Tab) 40 mg DAILY PO 08/04/16 09:00 09/03/16 08:59 08/05/16 08:57 40 MG Cefuroxime Axetil (Ceftin Tab) 500 mg DAILY PO 08/04/16 09:00 08/10/16 23:59 08/05/16 08:56 500 MG Gabapentin (Neurontin Cap) 300 mg TID PO 08/03/16 22:00 09/02/16 21:59 08/05/16 08:57 300 MG Mirtazapine (Remeron Tab) 30 mg HS PO 08/03/16 22:00 09/02/16 21:59 08/04/16 21:17 30 MG Ziprasidone (Geodon Cap) 120 mg HS PO 08/03/16 22:00 09/02/16 21:59 08/04/16 21:17 120 MG Potassium Chloride (Klor-Con Tab) 20 meq NOW ONCE PO 08/03/16 21:15 08/03/16 21:49 DC 08/03/16 22:01 20 MEQ Cetirizine HCl (zyrTEC TAB) 10 mg QAM PO 08/05/16 09:00 09/04/16 08:59 08/05/16 08:58 10 MG Cetirizine HCl (zyrTEC TAB) 10 mg 1233 ONCE PO 08/04/16 12:33 08/04/16 13:16 DC 08/04/16 13:29 10 MG Buspirone HCl (Buspar Tab) 5 mg TID PO 08/04/16 22:00 09/03/16 21:59 08/05/16 08:56 5 MG Trazodone HCl (Desyrel Tab) 50 mg HS PO 08/04/16 22:00 08/05/16 11:59 DC 08/04/16 22:00 50 MG Lab Results Last 24 Hrs: Last 24 Hours Test 08/05/16 07:10 08/05/16 07:23 Sodium Level 143 mmol/L Potassium Level 3.5 mmol/L Chloride Level 107 mmol/L Carbon Dioxide Level 26 mmol/L Anion Gap 10.0 mmol/L Fasting Glucose 99 mg/dl Triglycerides Level 121 mg/dl Cholesterol Level 145 mg/dl HDL Cholesterol 53 mg/dl LDL Cholesterol, Calculated 68 mg/dl VLDL Cholesterol, Calculated 24 mg/dl Cholesterol/HDL Ratio 2.7 Bedside Glucose 104 mg/dl Problem Qualifiers (1) Diabetes type 2, controlled: Diabetes mellitus complication status: without complication Diabetes mellitus intermediate frame tender insulin use: without intermediate frame tender use Qualified Codes: E11.9 - Type 2 diabetes mellitus without complications
[2016-08-05] MEDS: ZIPRASIDONE 80 MG CAP PO SCH (17:40)
[2016-08-05] MEDS: ATORVASTATIN 10 MG TAB PO SCH (21:25)
[2016-08-05] MEDS: MIRTAZAPINE TAB 15 MG TAB PO SCH (21:25)
[2016-08-05] MEDS ORDERED: TRAZODONE HCL 100 MG TAB PO SCH (22:00)
[2016-08-06 07:03] VITALS: BP_SYST 131; BP_SYST 152; BP_DIAS 82; BP_DIAS 89; PULSE 76; PULSE 80; TEMP 36.3
[2016-08-06] MEDS: CEFUROXIME AXETIL 500 MG TAB PO SCH (09:07)
[2016-08-06] MEDS: METFORMIN HCL 500 MG TAB PO SCH ×2 (09:07→17:45)
[2016-08-06] MEDS: CETIRIZINE HCL 10 MG TAB PO SCH (09:07)
[2016-08-06] MEDS: PANTOprazole SOD 40 MG TAB PO SCH (09:07)
[2016-08-06] MEDS: GABAPENTIN 300 MG CAP PO SCH ×3 (09:07→21:04)
[2016-08-06] MEDS: LISINOPRIL 10 MG TAB PO SCH (09:07)
[2016-08-06] MEDS: CHOLECALCIFEROL 1000 INTER.UNIT TAB PO SCH ×2 (09:07→21:05)
--- NOTE | 2016-08-06 12:35 | Psychiatric Progress Notes ---
Progress Note Date of Service Aug 06, 2016. Interval History 66 yo female admitted initially to the medical floor following a toxic ingestion of amitriptyline and alprazolam in a suicide attempt, and was medically cleared for transfer to [facility] on 08/03. Stressor include poor sleep, dark weather, and the need to care for her boyfriend. Chief Complaint "I don't know". Subjective Patient was seen & assessed interval progress reviewed with Treatment Team. The patient remains focused on her boyfriend Marcellus and her worries about his care , driving her desire to leave. Ultimately she agrees that she isn't comfortable anywhere but her own home. She remains anxious and fretful, feeling unable to make decisions. Although she slept better last night, it was not of the quality that she wants and is asking about increasing her trazodone. We discuss at length, whether or not to continue her stay on a voluntary or involuntary basis, as we are recommending that she remain in the hospital until her sleep is regulated, since this has led to SI in the past. After 2 discussions, she agrees to remain in the hospital voluntarily with hopes that she will be able to go home early next week. She continues to deny SI. Review of Systems Constitutional: + fatigue ENT: No dental problems, No hearing loss, No nasal symptoms, No problem reported, No sore throat, No tinnitus, No trouble swallowing, No unusual epistaxis Respiratory: No cough, No dyspnea at rest, No dyspnea on exertion, No hemoptysis, No problem reported, No shortness of breath, No sputum, No wheezing Musculoskeletal: No calf pain, No joint pain, No muscle pain, No problem reported, No swelling Neurologic: No balance problems, No memory loss, No numbness/tingling, No paralysis, No problem reported, No vertigo, No weakness Psychiatric: + anxiety, + depression symptoms, + insomnia Integumentary: No bleeding, No color change, No itch, No new/changing skin lesions, No problem reported, No rash Sleep Information Total Hours of Sleep: 7.50 Meal Information Percent of Breakfast Consumed: 90 Percent of Lunch Consumed: 80 Percent of Dinner Consumed: 50 Mental Status Exam During interview pt is: alert and oriented, cooperative Appearance: appropriately dressed, disheveled Eye contact is: good Motor behavior is: steady gait & station, no abnormal motor movements Speech: normal in rate, rhythm & volume Affect: mood congruent, flat Mood is: depressed Thought process: goal directed, clear, coherent Thought content: reality based without delusions Suicidal thought are: denied Homicidal thoughts are: denied Hallucinations: denies auditory, denies visual Cognition: memory grossly intact, attention grossly intact Intelligence estimated to be: average Insight: impaired Judgement: impaired Impression Patient remains depressed, with insomnia today. She is anxious and finding it difficult to make decisions. We have recommended she remain in inpatient treatment until her sleep is regulated and after much discussion is agreeable to this. Will have staff convert to a voluntary today. I have explained the 72 hr notice, and if necessary, will have her sign one over the weekend if she is wanting to leave before we think she is ready. Will increase Trazodone to 150 mg. HS Plan (1) Major depressive disorder, recurrent severe without psychotic features 08/05 - Increase Geodon to OP dose of 160 mg. with dinner - Increase Trazodone to 100 mg. to target insomnia - Q 15 min checks for safety - Encourage participation in group and individual counseling - FAmily meeting held with Marcellus yesterday - The patient will need psychiatric aftercare including therapy - Assist the patient to learn and utilize additional healthy coping strategies. - Encourage good sleep hygiene, including exercise, no daytime naps, reduced caffeine - Monitoring labs on Geodon completed. FLP WNL, fasting glucose 104 08/06 - Increase Trazodone to 150 mg. HS - Convert to voluntary 201 today (2) Anxiety disorder, unspecified 08/05 - No BZD in view of OD - Encourage use of prn vistaril - Expose the patient to mindfulness, relaxation, breathing exercises. - Increase Buspar to 10 mg. TID (3) Dyslipidemia (4) Diabetes type 2, controlled 08/05 - Continue metformin - BSG's BID - Diabetic diet - Encourage exercise (5) Chronic GERD 08/05 - Convert Prilosec to Protonix Discharge / Aftercare Planning Primary Care Physician: Name: Rachid Laws DO Psychiatrist: Name: Kia LUONG Date of Appointment: Aug 31, 2016 Time of Appointment: 10am Therapist: Name: none, willing to start therapy in October. Visit Code E&M Code: 54269 Risk Factors Assessment : Yes /single/: No Higher / Fall in social status: No Access to guns: No Health problems: Yes Mental Health Diagnoses: Yes Substance use disorders: No Previous attempt: Yes Previous psychiatric stay: Yes Smoker: No Protective Factors Assessment Amish beliefs: No : No Responsible for young children: No Employed: No Stable relationships: Yes Supportive family: Yes Data Vital Signs Last 24 Hrs: Date Time Temp Pulse Resp B/P Pulse Ox O2 Delivery O2 Flow Rate FiO2 08/06/16 07:03 36.3 76 16 152/89 80 131/82 Meds Administered Last 24 Hrs: Meds Administered (Past 24Hrs) Medications (Trade) Dose Ordered Sig/William Route Start Time Stop Time Status Last Admin Dose Admin Atorvastatin Calcium (Lipitor Tab) 10 mg QPM PO 08/04/16 21:00 09/03/16 20:59 08/05/16 21:25 10 MG Cetirizine HCl (zyrTEC TAB) 10 mg QAM PO 08/05/16 09:00 09/04/16 08:59 08/06/16 09:07 10 MG Cetirizine HCl (zyrTEC TAB) 10 mg 1233 ONCE PO 08/04/16 12:33 08/04/16 13:16 DC 08/04/16 13:29 10 MG Buspirone HCl (Buspar Tab) 5 mg TID PO 08/04/16 22:00 09/03/16 21:59 08/06/16 09:07 5 MG Trazodone HCl (Desyrel Tab) 50 mg HS PO 08/04/16 22:00 08/05/16 11:59 DC 08/04/16 22:00 50 MG Trazodone HCl (Desyrel Tab) 100 mg HS PO 08/05/16 22:00 09/04/16 21:59 08/05/16 21:25 100 MG Ziprasidone (Geodon Cap) 160 mg DAILY@1730 PO 08/05/16 17:30 09/04/16 17:29 08/05/16 17:40 160 MG Lab Results Last 24 Hrs: Last 24 Hours Test 08/06/16 07:39 Bedside Glucose 127 mg/dl Problem Qualifiers (1) Diabetes type 2, controlled: Diabetes mellitus complication status: without complication Diabetes mellitus oil heaterman insulin use: without [facility] use Qualified Codes: E11.9 - Type 2 diabetes mellitus without complications
--- NOTE | 2016-08-06 13:15 | Psych Management Progress Note ---
Psychiatry Miscellaneous Date of Service: Aug 06, 2016. Patient seen, MS assessed. Rates mood as improving, remains very focussed/ worried about caring for her significant other. Cooperative with care and treatment plan as outlined by [employer]ATB[employer] DRIVER. Will not proceed with 303 commitment at this time.
[2016-08-06] MEDS: ZIPRASIDONE 80 MG CAP PO SCH (17:45)
[2016-08-06] MEDS: ATORVASTATIN 10 MG TAB PO SCH (21:02)
[2016-08-06] MEDS: MIRTAZAPINE TAB 15 MG TAB PO SCH (21:04)
[2016-08-06] MEDS: TRAZODONE HCL 100 MG TAB PO SCH (21:04)
[2016-08-07 07:01] VITALS: BP_SYST 123; BP_SYST 151; BP_DIAS 83; BP_DIAS 87; PULSE 80; PULSE 84; TEMP 36.8
[2016-08-07] MEDS: METFORMIN HCL 500 MG TAB PO SCH ×2 (08:23→17:34)
[2016-08-07] MEDS: CEFUROXIME AXETIL 500 MG TAB PO SCH (08:23)
[2016-08-07] MEDS: CHOLECALCIFEROL 1000 INTER.UNIT TAB PO SCH ×2 (08:24→21:29)
[2016-08-07] MEDS: LISINOPRIL 10 MG TAB PO SCH (08:24)
[2016-08-07] MEDS: GABAPENTIN 300 MG CAP PO SCH ×3 (08:24→21:29)
[2016-08-07] MEDS: PANTOprazole SOD 40 MG TAB PO SCH (08:24)
[2016-08-07] MEDS: CETIRIZINE HCL 10 MG TAB PO SCH (08:25)
--- NOTE | 2016-08-07 13:37 | Psychiatric Progress Notes ---
Progress Note Date of Service Aug 07, 2016. Interval History 66 yo female admitted initially to the medical floor following a toxic ingestion of amitriptyline and alprazolam in a suicide attempt, and was medically cleared for transfer to behavioral health on 08/03. Stressor include poor sleep, dark weather, and the need to care for her boyfriend. Chief Complaint "Feel anxious". Subjective Patient was seen & assessed interval progress reviewed with nursing staff.Patient reports tolerating medications well without any side effects. Continues to feel anxious and this is aggravated by her worrying about her boyfriend's health problems. Denies any thoughts to harm herself or others. Review of Systems Psych: denies symptoms other than stated above Constitutional: Slept 5.75 hours. Energy level decreased. Appetite good. Cardiovascular: denied GI: denied Neurologic: denied Remainder of 10 body systems also reviewed and denied other than noted above. Sleep Information Total Hours of Sleep: 5.75 Meal Information Percent of Breakfast Consumed: 90 Percent of Lunch Consumed: 80 Percent of Dinner Consumed: 100 Mental Status Exam During interview pt is: alert and oriented, cooperative Appearance: appropriately dressed, disheveled Eye contact is: good Motor behavior is: steady gait & station, no abnormal motor movements Speech: normal in rate, rhythm & volume Affect: mood congruent, flat Mood is: depressed Thought process: goal directed, clear, coherent Thought content: reality based without delusions Suicidal thought are: denied Homicidal thoughts are: denied Hallucinations: denies auditory, denies visual Cognition: memory grossly intact, attention grossly intact Intelligence estimated to be: average Insight: impaired Judgement: impaired Impression Patient remains depressed, with insomnia today. She is anxious and finding it difficult to make decisions. We have recommended she remain in inpatient treatment until her sleep is regulated and after much discussion is agreeable to this. Will have staff convert to a voluntary today. I have explained the 72 hr notice, and if necessary, will have her sign one over the weekend if she is wanting to leave before we think she is ready. Will increase Trazodone to 150 mg. HS Plan (1) Major depressive disorder, recurrent severe without psychotic features 08/05 - Increase Geodon to OP dose of 160 mg. with dinner - Increase Trazodone to 100 mg. to target insomnia - Q 15 min checks for safety - Encourage participation in group and individual counseling - FAmily meeting held with BF Marcellus yesterday - The patient will need psychiatric aftercare including therapy - Assist the patient to learn and utilize additional healthy coping strategies. - Encourage good sleep hygiene, including exercise, no daytime naps, reduced caffeine - Monitoring labs on [place] completed. FLP WNL, fasting glucose 104 08/06 - Increase Trazodone to 150 mg. HS - Convert to voluntary 201 today (2) Anxiety disorder, unspecified 08/05 - No BZD in view of OD - Encourage use of prn vistaril - Expose the patient to mindfulness, relaxation, breathing exercises. - Increase Buspar to 10 mg. TID (3) Dyslipidemia (4) Diabetes type 2, controlled 08/05 - Continue metformin - BSG's BID - Diabetic diet - Encourage exercise (5) Chronic GERD 08/05 - Convert Prilosec to Protonix Discharge / Aftercare Planning Primary Care Physician: Name: Rachid Laws DO Psychiatrist: Name: Kia LUONG Date of Appointment: Aug 31, 2016 Time of Appointment: 10am Therapist: Name: none, willing to start therapy in October. Visit Code E&M Code: 71782 Risk Factors Assessment : Yes /single/: No Higher / Fall in social status: No Access to guns: No Health problems: Yes Mental Health Diagnoses: Yes Substance use disorders: No Previous attempt: Yes Previous psychiatric stay: Yes Smoker: No Protective Factors Assessment Hinduism beliefs: No : No Responsible for young children: No Employed: No Stable relationships: Yes Supportive family: Yes Data Vital Signs Last 24 Hrs: Date Time Temp Pulse Resp B/P Pulse Ox O2 Delivery O2 Flow Rate FiO2 08/07/16 07:01 36.8 80 16 151/87 84 123/83 Meds Administered Last 24 Hrs: Meds Administered (Past 24Hrs) Medications (Trade) Dose Ordered Sig/William Route Start Time Stop Time Status Last Admin Dose Admin Trazodone HCl (Desyrel Tab) 100 mg HS PO 08/05/16 22:00 08/06/16 12:34 DC 08/05/16 21:25 100 MG Ziprasidone (Geodon Cap) 160 mg DAILY@1730 PO 08/05/16 17:30 09/04/16 17:29 08/06/16 17:45 160 MG Buspirone HCl (Buspar Tab) 10 mg TID PO 08/06/16 14:00 09/05/16 13:59 08/07/16 08:23 10 MG Trazodone HCl (Desyrel Tab) 150 mg HS PO 08/06/16 22:00 09/05/16 21:59 08/06/16 21:04 150 MG Lab Results Last 24 Hrs: Last 24 Hours Test 08/07/16 07:02 Bedside Glucose 103 mg/dl Problem Qualifiers (1) Diabetes type 2, controlled: Diabetes mellitus complication status: without complication Diabetes mellitus intermediate manager insulin use: without snf use Qualified Codes: E11.9 - Type 2 diabetes mellitus without complications
[2016-08-07] MEDS: ZIPRASIDONE 80 MG CAP PO SCH (17:34)
[2016-08-07] MEDS: ATORVASTATIN 10 MG TAB PO SCH (21:28)
[2016-08-07] MEDS: TRAZODONE HCL 100 MG TAB PO SCH (21:29)
[2016-08-07] MEDS: MIRTAZAPINE TAB 15 MG TAB PO SCH (21:29)
[2016-08-07] MEDS: hydrOXYzine HCL 25 MG TAB PO PRN ×2 (21:29→23:11)
[2016-08-07] MEDS: ACETAMINOPHEN 325 MG TAB PO PRN (21:30)
[2016-08-08 07:04] VITALS: BP_SYST 141; BP_SYST 147; BP_DIAS 83; BP_DIAS 87; PULSE 78; PULSE 86; TEMP 36.8
[2016-08-08] MEDS: GABAPENTIN 300 MG CAP PO SCH ×3 (07:52→21:12)
[2016-08-08] MEDS: PANTOprazole SOD 40 MG TAB PO SCH (07:52)
[2016-08-08] MEDS: CHOLECALCIFEROL 1000 INTER.UNIT TAB PO SCH ×2 (07:52→21:12)
[2016-08-08] MEDS: CEFUROXIME AXETIL 500 MG TAB PO SCH (07:52)
[2016-08-08] MEDS: LISINOPRIL 10 MG TAB PO SCH (07:54)
[2016-08-08] MEDS: CETIRIZINE HCL 10 MG TAB PO SCH (07:55)
[2016-08-08] MEDS: METFORMIN HCL 500 MG TAB PO SCH ×2 (08:32→17:51)
--- NOTE | 2016-08-08 15:39 | Psychiatric Progress Notes ---
Progress Note Date of Service Aug 08, 2016. Interval History 66 yo female admitted initially to the medical floor following a toxic ingestion of amitriptyline and alprazolam in a suicide attempt, and was medically cleared for transfer to behavioral health on 08/03. Stressor include poor sleep, dark weather, and the need to care for her boyfriend. Chief Complaint "Less anxious". Subjective Patient was seen & assessed interval progress reviewed with nursing staff. Patient reports tolerating medications well. No significant side effects. Anxiety level gradually improving. Has remorse over suicide attempt. Denies any thoughts to harm self or others. Review of Systems Psych: denies symptoms other than stated above Constitutional: Slept 5.75 hours. Energy level good. Appetite good. Cardiovascular: denied GI: denied Neurologic: denied Remainder of 10 body systems also reviewed and denied other than noted above. Sleep Information Total Hours of Sleep: 5.75 Meal Information Percent of Breakfast Consumed: 80 Percent of Lunch Consumed: 80 Percent of Dinner Consumed: 70 Mental Status Exam During interview pt is: alert and oriented, cooperative Appearance: appropriately dressed, disheveled Eye contact is: good Motor behavior is: steady gait & station, no abnormal motor movements Speech: normal in rate, rhythm & volume Affect: mood congruent, flat Mood is: depressed Thought process: goal directed, clear, coherent Thought content: reality based without delusions Suicidal thought are: denied Homicidal thoughts are: denied Hallucinations: denies auditory, denies visual Cognition: memory grossly intact, attention grossly intact Intelligence estimated to be: average Insight: impaired Judgement: impaired Impression Patient remains depressed, with insomnia today. She is anxious and finding it difficult to make decisions. We have recommended she remain in inpatient treatment until her sleep is regulated and after much discussion is agreeable to this. Will have staff convert to a voluntary today. I have explained the 72 hr notice, and if necessary, will have her sign one over the weekend if she is wanting to leave before we think she is ready. Will increase Trazodone to 150 mg. HS Plan (1) Major depressive disorder, recurrent severe without psychotic features 08/05 - Increase Geodon to OP dose of 160 mg. with dinner - Increase Trazodone to 100 mg. to target insomnia - Q 15 min checks for safety - Encourage participation in group and individual counseling - FAmily meeting held with Marcellus yesterday - The patient will need psychiatric aftercare including therapy - Assist the patient to learn and utilize additional healthy coping strategies. - Encourage good sleep hygiene, including exercise, no daytime naps, reduced caffeine - Monitoring labs on [place] cantrell. FLP WNL, fasting glucose 104 08/06 - Increase Trazodone to 150 mg. HS - Convert to voluntary 201 today (2) Anxiety disorder, unspecified 08/05 - No BZD in view of OD - Encourage use of prn vistaril - Expose the patient to mindfulness, relaxation, breathing exercises. - Increase Buspar to 10 mg. TID (3) Dyslipidemia (4) Diabetes type 2, controlled 08/05 - Continue metformin - BSG's BID - Diabetic diet - Encourage exercise (5) Chronic GERD 08/05 - Convert Prilosec to Protonix Discharge / Aftercare Planning Primary Care Physician: Name: Rachid Laws DO Psychiatrist: Name: Kia LUONG Date of Appointment: Aug 31, 2016 Time of Appointment: 10am Therapist: Name: none, willing to start therapy in October. Visit Code E&M Code: 32554 Risk Factors Assessment : Yes /single/: No Higher / Fall in social status: No Access to guns: No Health problems: Yes Mental Health Diagnoses: Yes Substance use disorders: No Previous attempt: Yes Previous psychiatric stay: Yes Smoker: No Protective Factors Assessment Faith beliefs: No : No Responsible for young children: No Employed: No Stable relationships: Yes Supportive family: Yes Data Vital Signs Last 24 Hrs: Date Time Temp Pulse Resp B/P Pulse Ox O2 Delivery O2 Flow Rate FiO2 08/08/16 07:04 36.8 78 18 147/87 86 141/83 Meds Administered Last 24 Hrs: Meds Administered (Past 24Hrs) Medications (Trade) Dose Ordered Sig/William Route Start Time Stop Time Status Last Admin Dose Admin Trazodone HCl (Desyrel Tab) 150 mg HS PO 08/06/16 22:00 09/05/16 21:59 08/07/16 21:29 150 MG Lab Results Last 24 Hrs: Last 24 Hours Test 08/08/16 07:34 Bedside Glucose 156 mg/dl Problem Qualifiers (1) Diabetes type 2, controlled: Diabetes mellitus complication status: without complication Diabetes mellitus long-term insulin use: without long-term use Qualified Codes: E11.9 - Type 2 diabetes mellitus without complications
[2016-08-08] MEDS: ZIPRASIDONE 80 MG CAP PO SCH (17:51)
[2016-08-08] MEDS: TRAZODONE HCL 100 MG TAB PO SCH (21:11)
[2016-08-08] MEDS: ATORVASTATIN 10 MG TAB PO SCH (21:11)
[2016-08-08] MEDS: MIRTAZAPINE TAB 15 MG TAB PO SCH (21:12)
[2016-08-08] MEDS: hydrOXYzine HCL 25 MG TAB PO PRN ×2 (21:12→21:49)
[2016-08-08] MEDS: ACETAMINOPHEN 325 MG TAB PO PRN (21:14)
[2016-08-09 06:56] VITALS: BP_SYST 145; BP_SYST 171; BP_DIAS 101; BP_DIAS 85; PULSE 90; PULSE 94; TEMP 36.9
[2016-08-09] MEDS: CETIRIZINE HCL 10 MG TAB PO SCH (08:24)
[2016-08-09] MEDS: CHOLECALCIFEROL 1000 INTER.UNIT TAB PO SCH (08:24)
[2016-08-09] MEDS: PANTOprazole SOD 40 MG TAB PO SCH (08:24)
[2016-08-09] MEDS: LISINOPRIL 10 MG TAB PO SCH (08:25)
[2016-08-09] MEDS: METFORMIN HCL 500 MG TAB PO SCH (08:25)
[2016-08-09] MEDS: GABAPENTIN 300 MG CAP PO SCH (08:25)
[2016-08-09] MEDS: CEFUROXIME AXETIL 500 MG TAB PO SCH (08:25)
[2016-08-09] MEDS ORDERED: BUSP-8 PO (09:48)
[2016-08-09] MEDS ORDERED: TRAZ1TAB52 PO (09:48)
--- NOTE | 2016-08-09 10:03 | Discharge Instructions ---
Discharge Information Report Includes Report will include the: Discharge Instructions & Summary Admission Admission Date / Time: Aug 03, 2016 at 20:47 Reason for Admission: Major Depressive Disorder, Recurrent Discharge Discharge Diagnosis / Problem: Major depressive disorder, anxiety Condition at Discharge: Good Discharge Goals Goal(s): Decrease discomfort, Improve disease control, Prevent Disease Progression Activity Recommendations Activity Limitations: resume your previous activity We recommend that all medications be locked or given to others to keep . Instructions / Follow-Up Instructions / Follow-Up . SPECIAL CARE INSTRUCTIONS: 1. Follow through with your scheduled aftercare appointments. If unable to keep an appointment, please call to reschedule. 2. Take your medication only as prescribed. Medication should not be changed or stopped without the approval of your doctor. In the event of worsening symptoms or concerns about side effects, contact your doctor immediately. 3. Utilize new healthy coping skills, anger management skills, and stress management skills learned during your hospitalization. Journal feelings and process them with a support person. Identify stressors or situations that may result in relapse, deterioration or inappropriate behaviors and develop a plan to deal with those issues. 4. If your coping skills are ineffective and you are in crisis, contact your outpatient providers for direction. If unable to reach your providers, please call the CAN HELP LINE AT or go to the closest Emergency Room. 5. Avoid alcohol and un-prescribed drugs. 6. You have been provided with the Mental Health Advance Directives Pamphlet for your review. AFTERCARE APPOINTMENTS: * Please call your insurance company prior to your scheduled appointment to confirm your aftercare providers are covered. Take your insurance information to your appointments. . Discharge / Aftercare Planning Primary Care Physician: Name: Rachid Laws DO Psychiatrist: Name: Kia LUONG Date of Appointment: Aug 31, 2016 Time of Appointment: 10am Therapist: Name Of Therapist: none, willing to start therapy in October. . Follow-Up Care Plan for Follow-Up Care: The patient will have follow up with a new psychiatric provider on 08/31/16 Current Hospital Diet Patient's current hospital diet: Diabetes Type 2 Diet Discharge Diet Recommended Diet: Diabetes Type 2 Diet Procedures Procedures Performed: No Pending Studies Pending Studies at Discharge: No Medical Emergencies . Who to Call and When: Medical Emergencies: For questions or emergencies related to your hospital stay, please contact the Inpatient Behavioral Health Unit at [phone]. A coding analyst is on-call 31/01 for the Behavioral Health Unit for emergencies At any time you feel your situation is an emergency, you may also call 911 immediately. . Non-Emergent Contact Non-Emergency issues call your: Primary Care Provider, Psychiatrist, Therapist Advance Directives Existing Advance Directive: Yes Do You Have an Existing Mental: No Existing Living Will: Yes Existing Power of Irrigation Worker: Yes The Person Making Decisions: jody Riley Advance Directives Info Given: To Pt/S.O. Discharge Summary Admission HPI Per the Admitting provider: Please see the attached H&P Hospital Course (1) Major depressive disorder, recurrent severe without psychotic features 08/05 - Increase Geodon to OP dose of 160 mg. with dinner - Increase Trazodone to 100 mg. to target insomnia - Q 15 min checks for safety - Encourage participation in group and individual counseling - FAmily meeting held with Marcellus yesterday - The patient will need psychiatric aftercare including therapy - Assist the patient to learn and utilize additional healthy coping strategies. - Encourage good sleep hygiene, including exercise, no daytime naps, reduced caffeine - Monitoring labs on Geodon completed. FLP WNL, fasting glucose 104 08/06 - Increase Trazodone to 150 mg. HS - Convert to voluntary 201 today (2) Anxiety disorder, unspecified 08/05 - No BZD in view of OD - Encourage use of prn vistaril - Expose the patient to mindfulness, relaxation, breathing exercises. - Increase Buspar to 10 mg. TID (3) Dyslipidemia (4) Diabetes type 2, controlled 08/05 - Continue metformin - BSG's BID - Diabetic diet - Encourage exercise (5) Chronic GERD 08/05 - Convert Prilosec to Protonix Risk Factors Assessment : Yes /single/: No Higher / Fall in social status: No Access to guns: No Health problems: Yes Mental Health Diagnoses: Yes Substance use disorders: No Previous attempt: Yes Previous psychiatric stay: Yes Smoker: No Protective Factors Assessment Muslim beliefs: No : No Responsible for young children: No Employed: No Stable relationships: Yes Supportive family: Yes Day of Discharge Assessment COURSE OF HOSPITALIZATION: The patient was initially in ICU, and intubated following an intentional OD attempt. She was medically cleared and transferred to our unit on 08/03/16. During her 6 stay stay with us, remeron was increased to 30 mg. (had only been taking 1/2 pill at home), all TCA's and BZD were discontinued, and she was started on Trazodone 150 mg. for sleep which was effective. She was also started on Buspar 10 mg. TID for anxiety. She tolerated these meds without side effect. Other home meds were continued. Sleep remained a problem during the first half of her stay, but as Trazodone was titrated it improved. Family meeting was held with her boyfriend Marcellus and Marcellus's son who was caring for his dad during the hospitalization. They agreed that there needs to be more honest communication between them regarding her mood and concerns, and even expressed interest in couples counseling, although the patient indicated that she was not comfortable travelling during bad weather and would prefer to wait until spring for this. She was cooperative with treatment, attending groups, but tended to retreat to her room during unstructured time. She denies any further SI during her stay. She acknowledged a large seasonal component to her depression and was encouraged to use her therapy light which she owns, but has not used. DAY OF DISCHARGE ASSESSMENT: Today the patient is asking for discharge. She reports good sleep over the weekend and denies SI. She anxious to return to her home, although anxious because she hasn't been there in almost 9 days. She agrees that medications should be given to someone else, perhaps Marcellus's son for the time being. Today she is casually and appropriately dressed and groomed. Gait and station are WNL. Eye contact is good. Affect remains flat, and not congruent with reports of improved mood. Speech is of normal rate volume and tone. Thoughts are organized and goal directed, and without evidence of thought disorder. Recent/remote memory are intact per conversation. Intelligence is estimated to be average. Insight and judgement are improved over admission. Laboratory 08/04/16 07:43 08/05/16 07:10 Test 08/04/16 07:43 08/05/16 07:10 08/09/16 07:52 Est Creatinine Clear Calc Drug Dose 61.0 ml/min Estimated GFR () 69.0 Estimated GFR (Non- 59.5 BUN/Creatinine Ratio 14.4 (10-20) Calcium Level 9.1 mg/dl (8.5-10.1) Anion Gap 10.0 mmol/L (3-11) Fasting Glucose 99 mg/dl (70-99) Triglycerides Level 121 mg/dl (0-150) Cholesterol Level 145 mg/dl (0-200) HDL Cholesterol 53 mg/dl LDL Cholesterol, Calculated 68 mg/dl VLDL Cholesterol, Calculated 24 mg/dl Cholesterol/HDL Ratio 2.7 Bedside Glucose 138 mg/dl (70-90) Total Time Total Time Spent (min): Greater than 30 minutes Total Time Included: examination of the patient, discharge planning, medication reconciliation, communication with other providers Tobacco Cessation at Discharge FDA approved Prescription: non-smoker Problem Qualifiers (1) Diabetes type 2, controlled: Diabetes mellitus complication status: without complication Diabetes mellitus assisted insulin use: without termite technician use Qualified Codes: E11.9 - Type 2 diabetes mellitus without complications
[2016-08-09] MEDS ORDERED: CEFU1TAB35 PO (10:04)
== END 2016-08-09 13:08 | disposition home or self-care (01) | DRG 885 ==
LOC: C.MHU 20:47
PROVIDERS: ADMIT Psychiatry & Neurology Psychiatry; ATTEND Psychiatry & Neurology Psychiatry
DX: F33.2 Major depressive disorder, recurrent severe without psychotic features (principal); T43.012A Poisoning by tricyclic antidepressants, intentional self-harm, initial encounter; T42.4X2A Poisoning by benzodiazepines, intentional self-harm, initial encounter; G47.00 Insomnia, unspecified; F41.9 Anxiety disorder, unspecified; E11.9 Type 2 diabetes mellitus without complications; J44.9 Chronic obstructive pulmonary disease, unspecified; I10 Essential (primary) hypertension; E78.5 Hyperlipidemia, unspecified; K21.9 Gastro-esophageal reflux disease without esophagitis; Z63.6 Dependent relative needing care at home; Z62.810 Personal history of physical and sexual abuse in childhood; Z79.84 Long term (current) use of oral hypoglycemic drugs; Z79.890 Hormone replacement therapy; Z79.899 Other long term (current) drug therapy

== ENCOUNTER → 2016-11-15 | Outpatient (CLI) | payer OTHER ==
[~2016-11-15] MED LIST changes: -ALPR-385 PO; -AMT/25 PO; +ATOR10TA82 PO; -ATOR10TA88 PO; +BUSP-8 PO; +BUSP15TA70 PO; +CEFD1CAP14 PO; +CEFU1TAB35 PO; +CETI10TA84 PO; +CHOL1000 PO; -DOXE100C4 PO; +ESTCR PV; +FLUT0.15 NAE; +GDN/80 PO; -GDN80 PO; +MELA1TAB5 PO; -MELO15TA3 PO; +MIRT30TA2 PO; +OMEG10007 PO; -RMR15 PO; +TRAZ300T PO; +ZIPR1CAP8 PO
[2016-11-15 11:03] LABS: BASO % 0.5 %; BASO ABS # 0.04 K/uL (0-0.2); COMPLETE YES; EOS % 1.7 %; HEMATOCRIT 41.3 % (37-47); IG% 0.1 %; LYMPH % 28.3 %; LYMPH ABS # 2.29 K/uL (1.2-3.4); MEAN CORPUSCULAR HEMOGLOBIN 29.2 pg (25-34); MEAN CORPUSCULAR HGB CONC 32.4 g/dl (32-36); MEAN PLATELET VOLUME 12.4 fL (7.4-10.4); NEUT % 63.4 %; PLATELET COUNT 238 K/uL (130-400); RED BLOOD COUNT 4.59 M/uL (4.2-5.4)
[2016-11-15 11:29] LABS: ALB/GLOB RATIO 1.4 (0.9-2); ALKALINE PHOSPHATASE 67 U/L (45-117); ALT/SGPT 27 U/L (12-78); AST/SGOT 9 U/L (15-37); BLOOD UREA NITROGEN 20 mg/dl (7-18); BUN/CREATININE RATIO 20.1 (10-20); CALCIUM 9.1 mg/dl (8.5-10.1); CARBON DIOXIDE 29 mmol/L (21-32); CHLORIDE 105 mmol/L (98-107); CREATININE 0.97 mg/dl (0.60-1.20); GLUCOSE 93 mg/dl (70-99); HDL CHOLESTEROL 58 mg/dl; SODIUM 141 mmol/L (136-145)
[2016-11-15 11:41] LABS: CHOLESTEROL 159 mg/dl (0-200); CHOLESTEROL/HDL RATIO 2.7; LDL CHOLESTEROL CALCULATED 73 mg/dl; TRIGLYCERIDES 139 mg/dl (0-150); VERY LOW DENSITY LIPOPROT CALC 28 mg/dl
[2016-11-15 12:07] LABS: ESTIMATED AVERAGE GLUCOSE 111 mg/dl; HA1C FLAG Normal (Normal)
== END | disposition home or self-care (01) ==
LOC: C.LABBC 08:39
PROVIDERS: ATTEND Physician Assistant Medical
DX: Z00.00 Encounter for general adult medical examination without abnormal findings (principal); Z11.59 Encounter for screening for other viral diseases; E11.9 Type 2 diabetes mellitus without complications; M79.7 Fibromyalgia; E55.9 Vitamin D deficiency, unspecified

== ENCOUNTER 2017-02-26 12:55 | Emergency (ER) | payer OTHER ==
[~2017-02-26] VITALS: Ht 170.2 cm; Wt 70.8 kg
[~2017-02-26 12:55] MED LIST changes: -ATOR10TA82 PO; +ATOR10TA88 PO; -BUSP15TA70 PO; -CEFD1CAP14 PO; -CETI10TA84 PO; -CHOL1000 PO; -MELA1TAB5 PO; -OMEG10007 PO; -TRAZ300T PO; -ZIPR1CAP8 PO
[2017-02-26 13:12] VITALS: TEMP 36.7; Ht 170.2 cm; Wt 70.8 kg
[2017-02-26] MEDS ORDERED: SODIUM CHLORIDE 0.9% 1000ML 1,000 ML IV STA ×2 (13:29→15:13)
[2017-02-26] MEDS ORDERED: ONDANSETRON INJ 2 MG/ML 2 ML VIAL IV STA (13:29)
--- NOTE | 2017-02-26 13:36 | EMERGENCY ROOM VISIT NOTE ---
History Report prepared by Janet: David Mcclendon Under the Supervision of: Hima SantanaO. First contact with patient: 13:19 Chief Complaint: URINARY SYMPTOMS Stated Complaint: BURNING W/URINATION, PUFFY, LOSS OF URINE LAST PM History of Present Illness The patient is a 66 year old female who presents to the Emergency Room with complaints of abnormal urinary symptoms that began last night. She describes these symptoms as severe burning with urination and dark yellow urine. She is also experiencing lower abdominal swelling with some mild pain. She denies any fevers, chills, nausea, vomiting, chest pain, back pain, shortness of breath, headaches, weakness, hematuria, cloudy urine, or pain/swelling in legs. The only change to her medications was 3 months ago: Trazodone 200 mg to 300 mg. She notes she had a syncopal episode of a couple of seconds 3 days ago. Source of History: patient Onset: last night Position: other () Symptom Intensity: severe Quality: other (Burning with urination) Timing: constant Modifying Factors (Worsening): urination Associated Symptoms: + abdominal pain, No fevers, No chills, No headache, No chest pain, No SOB, No nausea, No vomiting, No weakness Review of Systems See HPI for pertinent positives & negatives. A total of 10 systems reviewed and were otherwise negative. Past Medical & Surgical Medical Problems: (1) Anxiety disorder, unspecified (2) Chronic GERD (3) COPD (chronic obstructive pulmonary disease) (4) Degenerative disc disease, lumbar (5) Depressive Disorder Nec (6) Diabetes type 2, controlled (7) Dyslipidemia (8) Hypertension Nos (9) Respiratory failure (10) Tricyclic antidepressant overdose of undetermined intent Surgical Problems: (1) S/P section (2) S/P cholecystectomy (3) S/P hysterectomy Family History Heart disease Social History Smoking Status: Never Smoker Smokeless Tobacco Use: No Drug Use: none Marital Status: Occupation Status: disabled Current/Historical Medications Scheduled Atorvastatin (Lipitor), 10 MG PO QPM Buspirone Hcl (Buspar), 15 MG PO TID Cefdinir (Omnicef), 300 MG PO Q12H Cetirizine (Zyrtec), 10 MG PO DAILY Cholecalciferol (Vitamin D3), 1,000 UNITS PO DAILY Fish Oil ([place]-3), 3 CAP PO DAILY Fluticasone Propionate (Nasal) (Flonase Allergy Relief), 50 MCG SATYA DAILY Gabapentin (Neurontin), 300 MG PO TID Lisinopril (Zestril), 10 MG PO DAILY Melatonin (Kp Melatonin), 6 MG PO HS Metformin Hcl (Glucophage), 500 MG PO BID Omeprazole (Prilosec), 20 MG PO DAILY Trazodone Hcl (Desyrel), 300 MG PO HS Ziprasidone Hcl (Geodon), 160 MG PO HS Scheduled PRN Estradiol Vaginal (Estrace), 0.01 % PV DAILY PRN for vaginal dryness Allergies Coded Allergies: Aspirin (Verified Allergy, Mild, ASPIRIN, 02/26/17) Erythromycin (Verified Allergy, Mild, RASH, 02/26/17) Penicillins (Verified Allergy, Unknown, 02/26/17) Physical Exam Vital Signs Date Time Temp Pulse Resp B/P (MAP) Pulse Ox O2 Delivery O2 Flow Rate FiO2 02/26/17 17:37 72 20 120/71 98 02/26/17 14:57 59 02/26/17 14:52 59 20 102/61 97 Room Air 02/26/17 13:55 95 Room Air 02/26/17 13:55 60 20 107/65 61 101/62 62 102/61 02/26/17 13:54 60 20 102/67 95 Room Air 02/26/17 13:12 36.7 79 18 104/71 93 Room Air Physical Exam GENERAL: Patient is awake, alert, and in no acute distress. Patient is resting comfortably and showing no signs of anxiety EYES: The conjunctivae are clear. The pupils are round and reactive. EARS, NOSE, MOUTH AND THROAT: The nose is without any evidence of any deformity. Mucous membranes are moist tongue is midline NECK: The neck is nontender and supple. RESPIRATORY: Normal respiratory effort is noted there is no evidence of wheezing rhonchi or rales CARDIOVASCULAR: Regular rate and rhythm noted there no murmurs rubs or gallops normal S1 normal S2 GASTROINTESTINAL: The abdomen is soft and mildly distended. Bowel sounds are present in all quadrants. Abdomen is diffusely tender. No guarding or rigidity. MUSCULOSKELETAL/EXTREMITIES: There is no evidence of gross deformity full range of motion is noted in the hips and shoulders SKIN: There is no obvious evidence of any rash. There are no petechiae, pallor or cyanosis noted. Trace pedal edema bilaterally. NEUROLOGIC: Patient is awake alert and oriented x3 strength is symmetric patellar reflexes are 2+ bilaterally Medical Decision & Procedures ER Provider Diagnostic Interpretation: Radiology results as stated below per my review and radiologist interpretation: CHEST ONE VIEW PORTABLE CLINICAL HISTORY: Altered mental status. Weakness. COMPARISON STUDY: Chest radiograph December or 2016. FINDINGS: Lung volumes are normal. No pneumothorax or pleural effusion is present. There are no evidence of pulmonary edema. Cardiomediastinal silhouette is normal. IMPRESSION: No acute cardiopulmonary findings. Electronically signed by: Alvaro Palumbo M.D. 02/26/2017 2:06 PM Dictated Date/Time: 02/26/2017 2:[address] OF THE ABDOMEN AND PELVIS WITHOUT CONTRAST CLINICAL HISTORY: Flank pain. Burning with urination. COMPARISON STUDY: MRCP May 05, 2010. TECHNIQUE: Axial images of the abdomen and pelvis were obtained without IV contrast. Images were reviewed in the axial, sagittal, and coronal planes. A dose lowering technique was utilized adhering to the principles of ALARA. FINDINGS: There is no biliary ductal dilatation status post cholecystectomy. A 1.8 cm left adrenal nodule measures near water attenuation. This is unchanged and consistent with an adenoma. Unenhanced images of liver, spleen, right adrenal gland and pancreas are unremarkable. There is no peripancreatic infiltration. No renal, ureteral or bladder calculi are present. There is no hydronephrosis or hydroureter. 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 There is no lymphadenopathy. Caliber of small and large bowel are normal. There is trace fluid within the pelvis. There may be mild anasarca. No pneumatosis, free air or portal venous gas is present. The appendix is normal. No suspicious osseous lesion is present. There may be mild bladder wall thickening with minimal infiltration adjacent to the bladder. IMPRESSION: 1. No urinary calculi or hydronephrosis. 2. Trace fluid within the pelvis. 3. Mild bladder wall thickening with minimal infiltration adjacent to the bladder which could be correlated with urinalysis. 4. 1.8 cm left adrenal adenoma. Electronically signed by: Alvaro Palumbo M.D. 02/26/2017 2:47 PM Dictated Date/Time: 02/26/2017 2:38 PM Laboratory Results 02/26/17 13:40 Red Blood Count 4.15, Mean Corpuscular Volume 90.4, Mean Corpuscular Hemoglobin 30.1, Mean Corpuscular Hemoglobin Concent 33.3, Mean Platelet Volume 11.6, Neutrophils (%) (Auto) 73.0, Lymphocytes (%) (Auto) 20.3, Monocytes (%) (Auto) 5.3, Eosinophils (%) (Auto) 1.0, Basophils (%) (Auto) 0.2, Neutrophils # (Auto) 7.64, Lymphocytes # (Auto) 2.13, Monocytes # (Auto) 0.56, Eosinophils # (Auto) 0.10, Basophils # (Auto) 0.02 02/26/17 13:40 Test 02/26/17 13:40 White Blood Count 10.47 K/uL (4.8-10.8) Red Blood Count 4.15 M/uL (4.2-5.4) Hemoglobin 12.5 g/dL (12.0-16.0) Hematocrit 37.5 % (37-47) Mean Corpuscular Volume 90.4 fL (80-100) Mean Corpuscular Hemoglobin 30.1 pg (25-34) Mean Corpuscular Hemoglobin Concent 33.3 g/dl (32-36) Platelet Count 214 K/uL (130-400) Mean Platelet Volume 11.6 fL (7.4-10.4) Neutrophils (%) (Auto) 73.0 % Lymphocytes (%) (Auto) 20.3 % Monocytes (%) (Auto) 5.3 % Eosinophils (%) (Auto) 1.0 % Basophils (%) (Auto) 0.2 % Neutrophils # (Auto) 7.64 K/uL (1.4-6.5) Lymphocytes # (Auto) 2.13 K/uL (1.2-3.4) Monocytes # (Auto) 0.56 K/uL (0.11-0.59) Eosinophils # (Auto) 0.10 K/uL (0-0.5) Basophils # (Auto) 0.02 K/uL (0-0.2) RDW Standard Deviation 42.9 fL (36.4-46.3) RDW Coefficient of Variation 13.0 % (11.5-14.5) Immature Granulocyte % (Auto) 0.2 % Immature Granulocyte # (Auto) 0.02 K/uL (0.00-0.02) Prothrombin Time 10.9 SECONDS (9.0-12.0) Prothromb Time International Ratio 1.0 (0.9-1.1) Activated Partial Thromboplast Time 25.0 SECONDS (21.0-31.0) Partial Thromboplastin Ratio 1.0 Urine Color YELLOW Urine Appearance TURBID (CLEAR) Urine pH >= 9.0 (4.5-7.5) Urine Specific [place] 1.024 (1.000-1.030) Urine Protein NEG (NEG) Urine Glucose (UA) NEG (NEG) Urine Ketones NEG (NEG) Urine Occult Blood 2+ (NEG) Urine Nitrite POS (NEG) Urine Bilirubin NEG (NEG) Urine Urobilinogen POS (NEG) Urine Leukocyte Esterase MODERATE (NEG) Urine WBC (Auto) >30 /hpf (0-5) Urine RBC (Auto) >30 /hpf (0-4) Urine Hyaline Casts (Auto) 0 /lpf (0-5) Urine Epithelial Cells (Auto) 20-30 /lpf (0-5) Urine Bacteria (Auto) 4+ (NEG) Urine Pathogenic Casts /lpf (0) Anion Gap 6.0 mmol/L (3-11) Est Creatinine Clear Calc Drug Dose 50.3 ml/min Estimated GFR () 61.4 Estimated GFR (Non- 53.0 BUN/Creatinine Ratio 15.9 (10-20) Calcium Level 9.2 mg/dl (8.5-10.1) Magnesium Level 1.7 mg/dl (1.8-2.4) Total Bilirubin 1.0 mg/dl (0.2-1) Direct Bilirubin 0.3 mg/dl (0-0.2) Aspartate Amino Transf (AST/SGOT) 12 U/L (15-37) Alanine Aminotransferase (ALT/SGPT) 17 U/L (12-78) Alkaline Phosphatase 44 U/L (45-117) Total Creatine Kinase 56 U/L (26-192) Creatine Kinase MB 1.1 ng/ml (0.5-3.6) Creatine Kinase MB Ratio 2.0 (0-3.0) Troponin I < 0.015 ng/ml (0-0.045) Total Protein 6.6 gm/dl (6.4-8.2) Albumin 3.7 gm/dl (3.4-5.0) Thyroid Stimulating Hormone (TSH) 1.220 uIu/ml (0.300-4.500) Laboratory results per my review. Medications Administered Medications (Trade) Dose Ordered Sig/William Route Start Time Stop Time Status Last Admin Dose Admin Sodium Chloride 1,000 ml @ 999 mls/hr Q1H1M STAT IV 02/26/17 13:29 02/26/17 14:29 DC 02/26/17 13:51 999 MLS/HR Ondansetron HCl (Zofran Inj) 4 mg NOW STAT IV 02/26/17 13:29 02/26/17 13:30 DC 02/26/17 13:51 4 MG Magnesium Sulfate (Magnesium Sulfate) 1 gm NOW STAT IV 02/26/17 14:27 02/26/17 14:28 DC 02/26/17 14:59 1 GM Sodium Chloride 1,000 ml @ 999 mls/hr Q1H1M STAT IV 02/26/17 15:13 02/26/17 16:13 DC 02/26/17 15:13 999 MLS/HR Ceftriaxone Sodium (Rocephin Inj) 1 gm NOW STAT IV 02/26/17 15:13 02/26/17 15:15 DC 02/26/17 15:44 1 GM ECG Indication: abdominal pain Rate (beats per minute): 58 Rhythm: sinus bradycardia Findings: no ectopy, other (No acute STS) Comparison ECG Date: 03 Aug 2016 Change: no significant change ED Course 1319: The patient was evaluated in room B12B. A complete history and physical examination were performed. 1329: Ordered Zofran Inj 4 mg IV, NSS 1,000 ml @ 999 mls/hr IV 1427: Ordered Magnesium Sulfate 1 gm IV 1513: Ordered Rocephin Inj 1 gm IV, NSS 1,000 ml @ 999 mls/hr IV 1715: Upon reevaluation, the patient is resting. I discussed the results and treatment plan with her. She verbalized agreement of the treatment plan. She was discharged home. Medical Decision Differential diagnosis: Etiologies such as appendicitis, diverticulitis, PUD, biliary pathology, UTI, pancreatitis, obstruction, mesenteric ischemia, aortic pathology, infections, inflammatory bowel disease, renal colic, as well as others were entertained. Nursing notes reviewed. The patient is a 66-year-old female who presented to the emergency apartment with dysuria frequency and she also reports a syncopal episode recently. The patient was treated with IV fluids IV antiemetics and IV antibiotics for presumed urinary tract infection. She was feeling much better on subsequent reevaluation. I discussed the patient's laboratory and radiographic studies with her. She was encouraged to rest and avoid any strenuous activity. She was also encouraged to follow-up with her family doctor for further evaluation and for possible further testing for the syncopal episode. She was also encouraged return to the emergency department if symptoms change worsen or the need arises. Medication Reconcilliation Current Medication List: was personally reviewed by me Blood Pressure Screening Patient's blood pressure: Normal blood pressure Blood pressure disposition: Did not require urgent referral Impression Primary Impression: Urinary tract infection Additional Impression: Syncope Scribe Attestation The scribe's documentation has been prepared under my direction and personally reviewed by me in its entirety. I confirm that the note above accurately reflects all work, treatment, procedures, and medical decision making performed by me. Departure Information Dispostion Home / Self-Care Prescriptions Cefdinir (Omnicef) 300 Mg Cap 300 MG PO Q12H, #14 CAP Prov: Rashard Johnston, DO 02/26/17 Referrals No Doctor, Assigned (PCP) Forms HOME CARE DOCUMENTATION FORM, IMPORTANT VISIT INFORMATION Patient Instructions My [facility], Syncope, Urinary Tract Infecs Women Additional Instructions Call your family to schedule a follow-up appointment. Rest and avoid any strenuous activity. Drink plenty clear liquids. Continue all medications as prescribed. Return to the emergency department immediately if symptoms worsen or if need arises. Discussed the possibility that you may require further studies such as an echocardiogram or a Holter monitor to further evaluate the cause of your passing out episode. Problem Qualifiers Primary Impression: Urinary tract infection Urinary tract infection type: acute cystitis Hematuria presence: without hematuria Qualified Codes: N30.00 - Acute cystitis without hematuria Additional Impression: Syncope Syncope type: unspecified Qualified Codes: R55 - Syncope and collapse
[2017-02-26 13:55] VITALS: O2SAT 95
[2017-02-26 13:57] LABS: BASO % 0.2 %; BASO ABS # 0.02 K/uL (0-0.2); COMPLETE YES; HEMATOCRIT 37.5 % (37-47); IG% 0.2 %; LYMPH % 20.3 %; LYMPH ABS # 2.13 K/uL (1.2-3.4); MEAN CELL VOLUME 90.4 fL (80-100); MEAN CORPUSCULAR HEMOGLOBIN 30.1 pg (25-34); MEAN CORPUSCULAR HGB CONC 33.3 g/dl (32-36); MEAN PLATELET VOLUME 11.6 fL (7.4-10.4); MONO % 5.3 %; PLATELET COUNT 214 K/uL (130-400); RED BLOOD COUNT 4.15 M/uL (4.2-5.4); WHITE BLOOD COUNT 10.47 K/uL (4.8-10.8)
--- NOTE | 2017-02-26 14:07 | DIAGNOSTIC IMAGING REPORT ---
CHEST ONE VIEW PORTABLE CLINICAL HISTORY: Altered mental status. Weakness. COMPARISON STUDY: Chest radiograph December or 2016. FINDINGS: Lung volumes are normal. No pneumothorax or pleural effusion is present. There are no evidence of pulmonary edema. Cardiomediastinal silhouette is normal. IMPRESSION: No acute cardiopulmonary findings. Electronically signed by: Alvaro Palumbo M.D. 02/26/2017 2:06 PM Dictated Date/Time: 02/26/2017 2:05 PM
[2017-02-26 14:15] LABS: PROTHROMBIN TIME (PATIENT) 10.9 SECONDS (9.0-12.0)
[2017-02-26 14:17] LABS: ALT/SGPT 17 U/L (12-78); BLOOD UREA NITROGEN 18 mg/dl (7-18); BUN/CREATININE RATIO 15.9 (10-20); CALCIUM 9.2 mg/dl (8.5-10.1); CARBON DIOXIDE 30 mmol/L (21-32); CHLORIDE 104 mmol/L (98-107); GLUCOSE 91 mg/dl (70-99); MAGNESIUM 1.7 mg/dl (1.8-2.4); POTASSIUM 3.9 mmol/L (3.5-5.1); SODIUM 140 mmol/L (136-145)
[2017-02-26] MEDS ORDERED: MAGNESIUM SULFATE 1GM / D5W 1 GM BAG IV STA (14:27)
[2017-02-26 14:28] LABS: ALKALINE PHOSPHATASE 44 U/L (45-117); AST/SGOT 12 U/L (15-37)
[2017-02-26 14:34] LABS: URINE APPEARANCE TURBID (CLEAR); URINE BILIRUBIN NEG (NEG); URINE COLOR YELLOW; URINE EPITHELIAL CELL AUTO 20-30 /lpf (0-5); URINE NITRITE POS (NEG); URINE PH >= 9.0 (4.5-7.5); URINE SPECIFIC GRAVITY 1.024 (1.000-1.030); UROBILINOGEN POS (NEG)
[2017-02-26 14:47] LABS: MANUAL MICROSCOPIC REQUIRED? NO; REVIEW REQ? YES; SULFASALICYLIC ACID NEG (NEG)
--- NOTE | 2017-02-26 14:49 | DIAGNOSTIC IMAGING REPORT ---
CT OF THE ABDOMEN AND PELVIS WITHOUT CONTRAST CLINICAL HISTORY: Flank pain. Burning with urination. COMPARISON STUDY: MRCP May 05, 2010. TECHNIQUE: Axial images of the abdomen and pelvis were obtained without IV contrast. Images were reviewed in the axial, sagittal, and coronal planes. A dose lowering technique was utilized adhering to the principles of ALARA. FINDINGS: There is no biliary ductal dilatation status post cholecystectomy. A 1.8 cm left adrenal nodule measures near water attenuation. This is unchanged and consistent with an adenoma. Unenhanced images of liver, spleen, right adrenal gland and pancreas are unremarkable. There is no peripancreatic infiltration. No renal, ureteral or bladder calculi are present. There is no hydronephrosis or hydroureter. 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 There is no lymphadenopathy. Caliber of small and large bowel are normal. There is trace fluid within the pelvis. There may be mild anasarca. No pneumatosis, free air or portal venous gas is present. The appendix is normal. No suspicious osseous lesion is present. There may be mild bladder wall thickening with minimal infiltration adjacent to the bladder. IMPRESSION: 1. No urinary calculi or hydronephrosis. 2. Trace fluid within the pelvis. 3. Mild bladder wall thickening with minimal infiltration adjacent to the bladder which could be correlated with urinalysis. 4. 1.8 cm left adrenal adenoma. Electronically signed by: Alvaro Palumbo M.D. 02/26/2017 2:47 PM Dictated Date/Time: 02/26/2017 2:38 PM
[2017-02-26] MEDS ORDERED: BUSP15TA70 PO (14:54)
[2017-02-26] MEDS ORDERED: TRAZ300T PO (14:58)
[2017-02-26] MEDS ORDERED: ZIPR1CAP8 PO (14:58)
[2017-02-26] MEDS ORDERED: OMEG10007 PO (14:58)
[2017-02-26] MEDS ORDERED: CHOL1000 PO (14:58)
[2017-02-26] MEDS ORDERED: MELA1TAB5 PO (14:58)
[2017-02-26] MEDS ORDERED: CETI10TA84 PO (14:58)
[2017-02-26] MEDS ORDERED: CEFTRIAXONE SOD INJ 1 GM ADDVIAL IV STA (15:13)
[2017-02-26] MEDS ORDERED: CEFD1CAP14 PO (16:08)
[2017-02-26 17:37] VITALS: BP 120/71; PULSE 72; O2SAT 98
--- NOTE | 2017-02-28 12:12 | Pharmacy Progress Note ---
ED Pharmacist Culture FollowUp Date of Service: Feb 28, 2017. Patient was sent home with a prescription for cefdinir, which should cover the E. coli growing from the patient's urine culture, based on reported sensitivity to ceftriaxone.
== END 2017-02-26 17:39 | disposition home or self-care (01) ==
LOC: C.EDB 12:56
DX: N30.00 Acute cystitis without hematuria (principal); R55 Syncope and collapse; F41.9 Anxiety disorder, unspecified; K21.9 Gastro-esophageal reflux disease without esophagitis; J44.9 Chronic obstructive pulmonary disease, unspecified; M51.36 Other intervertebral disc degeneration, lumbar region; F32.9 Major depressive disorder, single episode, unspecified; E11.9 Type 2 diabetes mellitus without complications; E78.5 Hyperlipidemia, unspecified; I10 Essential (primary) hypertension; Z82.49 Family history of ischemic heart disease and other diseases of the circulatory system; Z79.899 Other long term (current) drug therapy

== ENCOUNTER → 2017-03-02 | Outpatient (CLI) | payer OTHER ==
[~2017-03-02] MED LIST changes: -BUSP-8 PO; +BUSP15TA70 PO; +CEFD1CAP14 PO; -CEFU1TAB35 PO; +CETI10TA84 PO; +CHOL1000 PO; -CHOL100010 PO; -GDN/80 PO; +MELA1TAB5 PO; -MIRT30TA2 PO; +OMEG10007 PO; +TRAZ300T PO; +ZIPR1CAP8 PO
--- NOTE | 2017-03-03 13:59 | MAMMOGRAPHY REPORT ---
BILATERAL DIGITAL SCREENING MAMMOGRAM TOMOSYNTHESIS WITH CAD: 03/02/2017 CLINICAL HISTORY: Routine screening. Patient has no complaints. TECHNIQUE: Breast tomosynthesis in addition to standard 2D mammography was performed. Current study was also evaluated with a Computer Aided Detection (CAD) system. COMPARISON: Comparison is made to exams dated: 03/09/2016 mammogram, 03/01/2016 mammogram, 01/23/2015 m ammogram, 07/23/2014 mammogram, 01/08/2014 mammogram, and 01/01/2014 mammogram - [facility] nter. BREAST COMPOSITION: There are scattered areas of fibroglandular density in both breasts. FINDINGS: No suspicious masses, calcifications, or areas of architectural distortion are noted in ei ther breast. There has been no significant interval change. IMPRESSION: ACR BI-RADS CATEGORY 1: NEGATIVE There is no mammographic evidence of malignancy. A 1 year screening mammogram is recommended. The pa tient will receive written notification of the results. Approximately 10% of breast cancers are not detected with mammography. A negative mammographic report should not delay biopsy if a clinically suggestive mass is present. Meeta Yee M.D. /:03/02/2017 15:52:04 Enamel Buffer: Nika EMNSAH(David)(Keith)(BD), [facility] letter sent: Normal 1/2 BI-RADS Code: ACR BI-RADS Category 1: Negative
== END | disposition home or self-care (01) ==
LOC: C.MAMM 13:21
PROVIDERS: ATTEND Physician Assistant Medical
DX: Z12.31 Encounter for screening mammogram for malignant neoplasm of breast (principal)

== ENCOUNTER → 2017-04-13 | Outpatient (CLI) | payer OTHER ==
[2017-04-13 14:14] LABS: URINE APPEARANCE CLEAR (CLEAR); URINE BILIRUBIN NEG (NEG); URINE COLOR YELLOW; URINE NITRITE NEG (NEG); URINE SPECIFIC GRAVITY 1.012 (1.000-1.030); UROBILINOGEN NEG (NEG)
[2017-04-13 14:26] LABS: MANUAL MICROSCOPIC REQUIRED? NO; REVIEW REQ? NO
== END | disposition home or self-care (01) ==
LOC: C.LABBC 10:50
PROVIDERS: ATTEND Physician Assistant
DX: N39.0 Urinary tract infection, site not specified (principal)

== ENCOUNTER → 2017-04-20 | Outpatient (CLI) | payer OTHER | END | disposition home or self-care (01) | LOC: C.LABSPEC 13:28 | PROVIDERS: ATTEND Physician Assistant | DX: N89.8 Other specified noninflammatory disorders of vagina (principal) ==

== ENCOUNTER → 2017-06-29 | Outpatient (CLI) | payer OTHER ==
[~2017-06-29] MED LIST changes: +ATOR10TA82 PO; -ATOR10TA88 PO
--- NOTE | 2017-06-29 09:58 | DIAGNOSTIC IMAGING REPORT ---
EXAMINATION: RENAL ULTRASOUND CLINICAL HISTORY: N39.41 Urge incontinence of [id number] Urinary [id number] COMPARISON STUDY: CT scan dated 02/26/2017 FINDINGS: The right kidney measures 9.1 cm. The left kidney measures 9.9 cm. There is no evidence of hydronephrosis. There are no renal masses. The bladder was poorly distended.. Bilateral ureteral jets were visualized. IMPRESSION : Unremarkable renal ultrasound. Electronically signed by: Jonny Del Toro M.D. 06/29/2017 9:57 AM Dictated Date/Time: 06/29/2017 9:56 AM
== END | disposition home or self-care (01) ==
LOC: C.ULTR 09:20
PROVIDERS: ATTEND Urology
DX: N39.41 Urge incontinence (principal); R39.15 Urgency of urination

== ENCOUNTER → 2017-10-19 | Outpatient (CLI) | payer OTHER ==
[~2017-10-19] MED LIST changes: -CEFD1CAP14 PO
[2017-10-19 10:06] LABS: BASO % 0.7 %; BASO ABS # 0.05 K/uL (0-0.2); EOS % 7.5 %; EOS ABS # 0.52 K/uL (0-0.5); HEMATOCRIT 32.6 % (37-47); IG# 0.01 K/uL (0.00-0.02); LYMPH % 29.5 %; LYMPH ABS # 2.05 K/uL (1.2-3.4); MEAN CELL VOLUME 92.4 fL (80-100); MEAN CORPUSCULAR HEMOGLOBIN 31.2 pg (25-34); MEAN CORPUSCULAR HGB CONC 33.7 g/dl (32-36); MEAN PLATELET VOLUME 12.1 fL (7.4-10.4); MONO % 6.3 %; MONO ABS # 0.44 K/uL (0.11-0.59); NEUT % 55.9 %; NEUT ABS # 3.88 K/uL (1.4-6.5); PLATELET COUNT 165 K/uL (130-400); RED CELL DISTRIBUTION WIDTH CV 13.5 % (11.5-14.5); RED CELL DISTRIBUTION WIDTH SD 45.4 fL (36.4-46.3); WHITE BLOOD COUNT 6.95 K/uL (4.8-10.8)
[2017-10-19 10:38] LABS: HEMOGLOBIN A1C 5.3 % (4.5-5.6)
[2017-10-19 10:45] LABS: ALBUMIN 3.8 gm/dl (3.4-5.0); ALT/SGPT 52 U/L (12-78); AST/SGOT 22 U/L (15-37); BLOOD UREA NITROGEN 16 mg/dl (7-18); CALCIUM 9.1 mg/dl (8.5-10.1); CARBON DIOXIDE 33 mmol/L (21-32); CHOLESTEROL 135 mg/dl (0-200); CREATININE 0.84 mg/dl (0.60-1.20); GLUCOSE 87 mg/dl (70-99); SODIUM 139 mmol/L (136-145)
[2017-10-19 10:57] LABS: ALKALINE PHOSPHATASE 57 U/L (45-117); LDL CHOLESTEROL CALCULATED 49 mg/dl; TOTAL PROTEIN 6.4 gm/dl (6.4-8.2)
== END | disposition home or self-care (01) ==
LOC: C.LAB 09:15
PROVIDERS: ATTEND Physician Assistant Medical
DX: E78.5 Hyperlipidemia, unspecified (principal); I10 Essential (primary) hypertension; E55.9 Vitamin D deficiency, unspecified; R63.4 Abnormal weight loss; E11.9 Type 2 diabetes mellitus without complications

== ENCOUNTER → 2017-10-28 | Outpatient (CLI) | payer OTHER | END | disposition home or self-care (01) | LOC: C.LAB 08:52 | PROVIDERS: ATTEND Physician Assistant Medical | DX: D64.9 Anemia, unspecified (principal) ==

== ENCOUNTER 2017-11-27 09:31 | Emergency (ER) | payer OTHER ==
[~2017-11-27] VITALS: Ht 170.2 cm; Wt 62.0 kg
[~2017-11-27 09:31] MED LIST changes: +ALPR1TAB3 PO; +BENZ100C84 PO; -CHOL1000 PO; +CHOL100010 PO; -ESTCR PV; +GDN80 PO; +IBUP-1050 PO; -LISI-461 PO; +LISI-729 PO; -MELA1TAB5 PO; +MELA3TAB7 PO; -OMEP20CA59 PO; +OXYB15TA12 PO; +PRLSR20 PO; -ZIPR1CAP8 PO
[2017-11-27 09:41] VITALS: Ht 170.2 cm; Wt 62.0 kg
[2017-11-27 09:45] VITALS: O2SAT 95
[2017-11-27] MEDS ORDERED: SODIUM CHLORIDE 0.9% 1000ML 1,000 ML IV STA (09:54)
[2017-11-27 10:02] LABS: BASO % 0.2 %; BASO ABS # 0.02 K/uL (0-0.2); EOS % 1.7 %; EOS ABS # 0.14 K/uL (0-0.5); HEMOGLOBIN 10.9 g/dL (12.0-16.0); IG# 0.01 K/uL (0.00-0.02); LYMPH % 15.9 %; MEAN CELL VOLUME 92.2 fL (80-100); MEAN CORPUSCULAR HEMOGLOBIN 31.4 pg (25-34); MEAN CORPUSCULAR HGB CONC 34.1 g/dl (32-36); MEAN PLATELET VOLUME 11.4 fL (7.4-10.4); MONO % 6.7 %; MONO ABS # 0.55 K/uL (0.11-0.59); NEUT % 75.4 %; NEUT ABS # 6.18 K/uL (1.4-6.5); PLATELET COUNT 167 K/uL (130-400)
--- NOTE | 2017-11-27 10:02 | EMERGENCY ROOM VISIT NOTE ---
History Report prepared by Janet: Lew Seals Under the Supervision of: Dr. Jim Marinelli M.D. First contact with patient: 09:42 Chief Complaint: CHEST PAIN Stated Complaint: CHEST PAINS,BACK PAIN,SHOULDER PAIN-RIGHT SIDED History of Present Illness The patient is a 67 year old female who presents to the Emergency Room with complaints of waxing and waning right-sided chest pain that began a couple of days ago. Patient states that the pain radiates to the right-side of her back and her right shoulder. She states that the pain is worsened with movement and when she coughs. Patient adds that she has intermittent coughs but believes that they are due to her allergies. Patient denies any recent falls or injuries. Patient denies a history of heart problems. Patient states that she has a history of high blood pressure, diabetes, depression, and anxiety. She states that she takes her medications as directed. She denies having any suicidal thoughts. She states that her mother had a pacemaker. Patient denies taking a blood thinner. Patient denies any productive coughs, abdominal pain, and leg pain/swelling. Patient is present with her . Patient states that she does not smoke. Source of History: patient, family () Onset: Couple days ago Position: chest (right), shoulder (right), back (Right) Timing: waxes/wanes Modifying Factors (Worsening): movement, other (Coughs) Modifying Factors (Relieving): other (None) Associated Symptoms: + cough, No abdominal pain Note: Patient denies leg pain/swelling. Review of Systems See HPI for pertinent positives & negatives. A total of 10 systems reviewed and were otherwise negative. Past Medical & Surgical Medical Problems: (1) Anxiety disorder, unspecified (2) Chronic GERD (3) COPD (chronic obstructive pulmonary disease) (4) Degenerative disc disease, lumbar (5) Depressive Disorder Nec (6) Diabetes type 2, controlled (7) Dyslipidemia (8) Hypertension Nos (9) Respiratory failure (10) Tricyclic antidepressant overdose of undetermined intent Surgical Problems: (1) S/P section (2) S/P cholecystectomy (3) S/P hysterectomy Old medical records were reviewed. Nurse's notes were reviewed and I agree with. Family History Heart disease Social History Smoking Status: Never Smoker Drug Use: none Marital Status: Occupation Status: disabled Current/Historical Medications Scheduled Alprazolam (Xanax), 1 MG PO TID Atorvastatin (Lipitor), 10 MG PO QPM Buspirone Hcl (Buspar), 15 MG PO TID Cetirizine (Zyrtec), 10 MG PO DAILY Cholecalciferol (Vitamin D), 1,000 UNITS PO DAILY Doxycycline Hyclate (Vibramycin), 1 CAP PO BID Fish Oil ([place]-3), 1 CAP PO DAILY Fluticasone Propionate (Nasal) (Flonase Allergy Relief), 50 MCG SATYA DAILY Gabapentin (Neurontin), 300 MG PO TID Lisinopril (Zestril), 5 MG PO QAM Melatonin-Pyridoxine (Melatonin), 6 MG PO HS Metformin Hcl (Glucophage), 500 MG PO BID Omeprazole (Prilosec), 20 MG PO QAM Oxybutynin Chloride (Ditropan Xl), 15 MG PO QAM Trazodone Hcl (Desyrel), 300 MG PO HS Ziprasidone (Ziprasidone HCl), 160 MG PO HS Scheduled PRN Benzonatate (Tessalon Perles), 100 MG PO DIRECTED PRN for Cough Ibuprofen (Advil), 200-600 MG PO Q4H PRN for Pain Allergies Coded Allergies: Aspirin (Verified Allergy, Mild, ASPIRIN, 11/27/17) Erythromycin (Verified Allergy, Mild, RASH, 11/27/17) Penicillins (Verified Allergy, Unknown, HIVES, 11/27/17) Uncoded Allergies: PEACH FUZZ (Allergy, Unknown, HIVES, 11/17/17) Physical Exam Vital Signs Date Time Temp Pulse Resp B/P (MAP) Pulse Ox O2 Delivery O2 Flow Rate FiO2 11/27/17 12:54 37.0 95 18 127/85 94 Room Air 11/27/17 12:54 65 11/27/17 12:34 67 21 11/27/17 12:31 125/75 94 Room Air 11/27/17 12:04 62 12 11/27/17 11:59 63 129/83 95 Room Air 11/27/17 11:06 65 19 95 Room Air 11/27/17 11:01 132/80 11/27/17 10:57 61 17 92 Room Air 11/27/17 10:52 141/72 11/27/17 10:41 70 23 93 Room Air 11/27/17 10:11 61 14 94 Room Air 11/27/17 10:06 64 15 92 Room Air 11/27/17 10:01 64 19 95 Room Air 11/27/17 09:57 104/57 11/27/17 09:47 66 11/27/17 09:45 95 Room Air 11/27/17 09:45 Room Air 11/27/17 09:41 36.4 64 18 96/54 92 Room Air Physical Exam General: Non-ill appearing middle-aged female in no acute distress. HEENT: Normal cephalic atraumatic. Pupils are equal round and reactive to light. Extraocular movements are intact. Oropharynx is pink with moist mucous membranes. No swelling of the mouth lips or tongue. Neck: Supple with a midline trachea. No meningeal signs or stiffness, no JVD or bruits. No Stridor. Chest: Reproducible tenderness to right anterior wall to palpitation and movement otherwise clear to auscultation bilaterally. No wheezes or rhonchi. No increased work of breathing. Heart: regular rate and rhythm. Abdomen: Soft nontender, nondistended without rebound guarding or rigidity. Extremities: No cyanosis clubbing or edema. No calf tenderness or assymetry Spine/Back. Non tender to palpation. No CVA tenderness Skin: Good turgor without rashes. Neurologic exam: Cranial nerves two through 12 are intact. Motor and sensation are intact and symmetrical throughout. Medical Decision & Procedures ER Provider Diagnostic Interpretation: Radiology results as stated below per my review and radiologist interpretation: CT ANGIOGRAM OF THE CHEST CLINICAL HISTORY: Right-sided chest pain COMPARISON STUDY: February 2010, chest x-ray dated 11/27/2017 TECHNIQUE: Following the IV administration of 119 mL of Optiray-320, CT angiogram of the thorax was performed from the thoracic inlet to the lung bases utilizing the pulmonary embolus protocol. Images are reviewed in the axial, sagittal, and coronal planes. IV contrast was administered without complication. MIP imaging was performed. A dose lowering technique was utilized adhering to the principles of ALARA. CT DOSE: 224.03 mGy.cm FINDINGS: There is mild right hilar lymphadenopathy. There is mild ectasia of the ascending thoracic aorta which measures 37 mm There were no pulmonary artery filling defects to indicate acute pulmonary embolism. There are small bilateral pleural effusions right greater than left. There is right middle lobe atelectasis/consolidation. Clinical correlation in regards to a pneumonia is recommended. There is mild septal thickening. There are dependent atelectatic changes. There is subtle groundglass attenuation the lungs, finding which may indicate mild edema. There is a 3.6 mm left upper lobe pulmonary nodule. This measured 2 mm in February 2010. IMPRESSION: 1. No evidence of acute pulmonary embolism 2. Small bilateral pleural effusions right greater than left 3. Mild septal thickening/edema 4. Right middle lobe atelectasis/consolidation. Clinical correlation regards to a pneumonia is recommended. Short-term radiographic follow-up is recommended 5. Mild right hilar adenopathy 6. 3.6 mm left upper lobe pulmonary nodule Electronically signed by: Jonny Del Toro M.D. 11/27/2017 11:40 AM CHEST ONE VIEW PORTABLE CLINICAL HISTORY: Atypical chest pain COMPARISON STUDY: 02/26/2017 FINDINGS: The cardiac and mediastinal contours remain stable. There are subtle airspace opacities the right medial lung base. This could represent a focal pneumonitis. Clinical correlation in this regard is advocated. There are no pleural effusions. There is no overt failure.[ IMPRESSION: Subtle airspace opacities the right medial lung base, possibly representing a pneumonia. Clinical and radiographic follow-up is recommended Electronically signed by: Jonny Del Toro M.D. 11/27/2017 10:08 AM Laboratory Results 11/27/17 09:45 Red Blood Count 3.47, Mean Corpuscular Volume 92.2, Mean Corpuscular Hemoglobin 31.4, Mean Corpuscular Hemoglobin Concent 34.1, Mean Platelet Volume 11.4, Neutrophils (%) (Auto) 75.4, Lymphocytes (%) (Auto) 15.9, Monocytes (%) (Auto) 6.7, Eosinophils (%) (Auto) 1.7, Basophils (%) (Auto) 0.2, Neutrophils # (Auto) 6.18, Lymphocytes # (Auto) 1.30, Monocytes # (Auto) 0.55, Eosinophils # (Auto) 0.14, Basophils # (Auto) 0.02 11/27/17 09:45 Test 11/27/17 09:45 11/27/17 09:55 White Blood Count 8.20 K/uL (4.8-10.8) Red Blood Count 3.47 M/uL (4.2-5.4) Hemoglobin 10.9 g/dL (12.0-16.0) Hematocrit 32.0 % (37-47) Mean Corpuscular Volume 92.2 fL (80-100) Mean Corpuscular Hemoglobin 31.4 pg (25-34) Mean Corpuscular Hemoglobin Concent 34.1 g/dl (32-36) Platelet Count 167 K/uL (130-400) Mean Platelet Volume 11.4 fL (7.4-10.4) Neutrophils (%) (Auto) 75.4 % Lymphocytes (%) (Auto) 15.9 % Monocytes (%) (Auto) 6.7 % Eosinophils (%) (Auto) 1.7 % Basophils (%) (Auto) 0.2 % Neutrophils # (Auto) 6.18 K/uL (1.4-6.5) Lymphocytes # (Auto) 1.30 K/uL (1.2-3.4) Monocytes # (Auto) 0.55 K/uL (0.11-0.59) Eosinophils # (Auto) 0.14 K/uL (0-0.5) Basophils # (Auto) 0.02 K/uL (0-0.2) RDW Standard Deviation 44.0 fL (36.4-46.3) RDW Coefficient of Variation 13.0 % (11.5-14.5) Immature Granulocyte % (Auto) 0.1 % Immature Granulocyte # (Auto) 0.01 K/uL (0.00-0.02) D-Dimer 530 ug/L FEU (0-500) Anion Gap 5.0 mmol/L (3-11) Est Creatinine Clear Calc Drug Dose 68.2 ml/min Estimated GFR () 89.7 Estimated GFR (Non- 77.4 BUN/Creatinine Ratio 18.0 (10-20) Calcium Level 9.0 mg/dl (8.5-10.1) Total Bilirubin 0.9 mg/dl (0.2-1) Direct Bilirubin 0.3 mg/dl (0-0.2) Aspartate Amino Transf (AST/SGOT) 41 U/L (15-37) Alanine Aminotransferase (ALT/SGPT) 88 U/L (12-78) Alkaline Phosphatase 89 U/L (45-117) Total Protein 6.3 gm/dl (6.4-8.2) Albumin 3.2 gm/dl (3.4-5.0) Lipase 78 U/L (73-393) Bedside Troponin I < 0.030 ng/ml (0-0.045) Laboratory studies as stated above per my review. Medications Administered Medications (Trade) Dose Ordered Sig/William Route Start Time Stop Time Status Last Admin Dose Admin Sodium Chloride 1,000 ml @ 999 mls/hr Q1H1M STAT IV 11/27/17 09:54 11/27/17 10:54 DC 11/27/17 10:25 999 MLS/HR Doxycycline Hyclate (Vibramycin Cap) 100 mg ONE STAT PO 11/27/17 12:48 11/27/17 12:49 DC 11/27/17 13:00 100 MG ECG Per My Interpretation Indication: chest pain Rate (beats per minute): 69 Rhythm: normal sinus (with sinus arrhythmia ) Findings: no acute ischemic change, prolonged QT (Mildly prolonged QT interval) Comparison ECG Date: 02/26/2017 Change: no significant change ED Course 0944: Past medical records reviewed. The patient was evaluated in room B11B, and a complete history and physical examination were performed. 0954: Sodium Chloride 1000 ml @ 999 mls/hr IV 1034: I reassessed the patient who is stable and appears in no distress. Patient is agreeable to a CT scan. 1045: Ioversol 100ml IV 1248: Vibramycin Cap 100mg PO 1301: Upon reevaluation, the patient is resting comfortably. I discussed the results and treatment plan with her. She verbalized agreement of the treatment plan. The patient was discharged home. Medical Decision Differentials include, but are not limited to; acute coronary syndrome, PE, pneumothorax, musculoskeletal, GERD, electrolyte or metabolic abnormality. This patient comes in as described above. She was placed in room B11. She is here for treatment and evaluation of right-sided chest pain she has had a cough. The pain is pleuritic as well as reproducible with palpation and movement. She appears in no distress. She is not hypoxemic. She is afebrile. I have asked established was given a liter normal saline bolus. Her initial blood pressure was mildly low in triage however she remained normotensive the rest the time here. Chest x-ray shows possible infiltrate in the right middle lobe. Her d-dimer was mildly elevated in light of this, I did do a chest CT there is no evidence of PE there is a possible right middle lobe pneumonia with her cough and I will cover her with antibiotics for possible pneumonia. She has no fever or white count. Her EKG and cardiac biomarkers are unremarkable and I think is likely cardiac given her atypical symptoms and her negative cardiac workup. She desires to go home. I think this is reasonable. I will start on doxycycline 100 mg twice daily for 10 days first dose was given here . she was encouraged to follow-up with her regular doctor and return if: Worsening of symptoms, fever or chills, shortness of breath, any new problems or concerns. Medication Reconcilliation Current Medication List: was personally reviewed by me Blood Pressure Screening Patient's blood pressure: Normal blood pressure Blood pressure disposition: Did not require urgent referral Impression Primary Impression: Right-sided chest pain Additional Impression: Pneumonia Scribe Attestation The scribe's documentation has been prepared under my direction and personally reviewed by me in its entirety. I confirm that the note above accurately reflects all work, treatment, procedures, and medical decision making performed by me. Departure Information Dispostion Home / Self-Care Prescriptions Doxycycline Hyclate (VIBRAMYCIN) 100 Mg Cap 1 CAP PO BID for 10 Days, #20 CAP Prov: Jim Marinelli M.D. 11/27/17 Referrals Leticia Dixon [facility] (PCP) Forms Call Back Authorization, HOME CARE DOCUMENTATION FORM, IMPORTANT VISIT INFORMATION Patient Instructions My [facility] Additional Instructions Rest. Drink plenty of fluids. Continue to use ibuprofen and/or Tylenol/acetaminophen as needed. Do not exceed the [id number] recommended dosages Do not take with any other medications that contain Tylenol/acetaminophen Use Doxycyline 100 mg twice a day for 10 days-Antibiotic Return to the ER if: Worsening of symptoms, shortness of breath, fever chills, any new problems or concerns Follow-up with your doctor in 1 to 2 days for recheck Problem Qualifiers
--- NOTE | 2017-11-27 10:09 | DIAGNOSTIC IMAGING REPORT ---
CHEST ONE VIEW PORTABLE CLINICAL HISTORY: Atypical chest pain COMPARISON STUDY: 02/26/2017 FINDINGS: The cardiac and mediastinal contours remain stable. There are subtle airspace opacities the right medial lung base. This could represent a focal pneumonitis. Clinical correlation in this regard is advocated. There are no pleural effusions. There is no overt failure.[ IMPRESSION: Subtle airspace opacities the right medial lung base, possibly representing a pneumonia. Clinical and radiographic follow-up is recommended Electronically signed by: Jonny Del Toro M.D. 11/27/2017 10:08 AM Dictated Date/Time: 11/27/2017 10:07 AM
[2017-11-27 10:18] LABS: ALBUMIN 3.2 gm/dl (3.4-5.0); CREATININE 0.8 mg/dl (0.60-1.20); POTASSIUM 3.9 mmol/L (3.5-5.1); TOTAL PROTEIN 6.3 gm/dl (6.4-8.2)
[2017-11-27] MEDS ORDERED: OPTIRAY 320 IV PRN (10:45)
--- NOTE | 2017-11-27 11:41 | DIAGNOSTIC IMAGING REPORT ---
CT ANGIOGRAM OF THE CHEST CLINICAL HISTORY: Right-sided chest pain COMPARISON STUDY: February 2010, chest x-ray dated 11/27/2017 TECHNIQUE: Following the IV administration of 119 mL of Optiray-320, CT angiogram of the thorax was performed from the thoracic inlet to the lung bases utilizing the pulmonary embolus protocol. Images are reviewed in the axial, sagittal, and coronal planes. IV contrast was administered without complication. MIP imaging was performed. A dose lowering technique was utilized adhering to the principles of ALARA. CT DOSE: 224.03 mGy.cm FINDINGS: There is mild right hilar lymphadenopathy. There is mild ectasia of the ascending thoracic aorta which measures 37 mm There were no pulmonary artery filling defects to indicate acute pulmonary embolism. There are small bilateral pleural effusions right greater than left. There is right middle lobe atelectasis/consolidation. Clinical correlation in regards to a pneumonia is recommended. There is mild septal thickening. There are dependent atelectatic changes. There is subtle groundglass attenuation the lungs, finding which may indicate mild edema. There is a 3.6 mm left upper lobe pulmonary nodule. This measured 2 mm in February 2010. IMPRESSION: 1. No evidence of acute pulmonary embolism 2. Small bilateral pleural effusions right greater than left 3. Mild septal thickening/edema 4. Right middle lobe atelectasis/consolidation. Clinical correlation regards to a pneumonia is recommended. Short-term radiographic follow-up is recommended 5. Mild right hilar adenopathy 6. 3.6 mm left upper lobe pulmonary nodule Electronically signed by: Jonny Del Toro M.D. 11/27/2017 11:40 AM Dictated Date/Time: 11/27/2017 11:32 AM
[2017-11-27] MEDS ORDERED: DOXYCYCLINE HYCLATE 100 MG CAP PO STA (12:48)
[2017-11-27] MEDS ORDERED: DOXY100C2 PO (12:52)
[2017-11-27 12:54] VITALS: BP 127/85; PULSE 95; TEMP 37; O2SAT 94
== END 2017-11-27 13:21 | disposition home or self-care (01) ==
LOC: C.EDB 09:32
DX: R07.9 Chest pain, unspecified (principal); J18.9 Pneumonia, unspecified organism; I10 Essential (primary) hypertension; E11.9 Type 2 diabetes mellitus without complications; F32.9 Major depressive disorder, single episode, unspecified; F41.9 Anxiety disorder, unspecified; E78.5 Hyperlipidemia, unspecified; J44.9 Chronic obstructive pulmonary disease, unspecified; Z90.49 Acquired absence of other specified parts of digestive tract; Z79.84 Long term (current) use of oral hypoglycemic drugs; Z79.51 Long term (current) use of inhaled steroids; Z88.0 Allergy status to penicillin; Z88.6 Allergy status to analgesic agent; Z91.018 Allergy to other foods

== ENCOUNTER → 2018-01-25 | Outpatient (CLI) | payer OTHER ==
[~2018-01-25] MED LIST changes: +BROM0.07; +DIFL0.0519; +DOXY100C76 PO; +GATI1SOL2; +MELA1TAB7 PO; +TAMS0.4C38 PO
--- NOTE | 2018-01-25 13:11 | DIAGNOSTIC IMAGING REPORT ---
CHEST 2 VIEWS ROUTINE HISTORY: 67 years-old Female R MIDDLE LOBE PNEUMONIA follow-up study in a patient with recent right middle lobe pneumonia COMPARISON: Chest radiograph and CTA chest 11/27/2017 TECHNIQUE: PA and lateral views of the chest FINDINGS: Cardiomediastinal and hilar silhouettes are within normal limits. No pneumothorax, pleural effusion or overt pulmonary edema. There is improved aeration about the medial right lung base with mild persistent ill-defined hazy opacity noted. Lung schrader otherwise appear clear. There is also resolution of the previously noted trace pleural effusion. Cholecystectomy clips are noted. Degenerative changes of the shoulders and spine. IMPRESSION: Improved aeration of the medial right lung base with minimal persistent opacities suggesting residual pneumonia or postinflammatory scarring. The above report was generated using voice recognition software. It may contain grammatical, syntax or spelling errors. Electronically signed by: Campbell Real M.D. 01/25/2018 1:10 PM Dictated Date/Time: 01/25/2018 1:08 PM
== END | disposition home or self-care (01) ==
LOC: C.RAD 12:40
PROVIDERS: ATTEND Nurse Practitioner Adult Health
DX: J18.1 Lobar pneumonia, unspecified organism (principal)

== ENCOUNTER → 2018-02-07 | Outpatient (CLI) | payer OTHER ==
[~2018-02-07] MED LIST changes: -BROM0.07; -DIFL0.0519; -GATI1SOL2; -MELA3TAB7 PO; -OXYB15TA12 PO
--- NOTE | 2018-02-07 10:42 | DIAGNOSTIC IMAGING REPORT ---
CHEST PREADMISSION(PA/LAT) CLINICAL HISTORY: PREOP preoperative evaluation COMPARISON STUDY: 01/25/2018 FINDINGS: The bones soft tissues and hemidiaphragms are normal. The cardiomediastinal silhouette is normal. The lungs are clear. The pulmonary vasculature is normal. IMPRESSION: Negative chest. The lungs are now considered clear. The above report was generated using voice recognition software. It may contain grammatical, syntax or spelling errors. Electronically signed by: Margariot Wall M.D. 02/07/2018 10:41 AM Dictated Date/Time: 02/07/2018 10:40 AM
[2018-02-07 11:04] LABS: BASO % 0.8 %; BASO ABS # 0.05 K/uL (0-0.2); EOS % 4.2 %; EOS ABS # 0.27 K/uL (0-0.5); HEMATOCRIT 35.6 % (37-47); HEMOGLOBIN 11.8 g/dL (12.0-16.0); IG# 0.01 K/uL (0.00-0.02); LYMPH % 34.7 %; LYMPH ABS # 2.22 K/uL (1.2-3.4); MEAN CELL VOLUME 91.5 fL (80-100); MEAN CORPUSCULAR HEMOGLOBIN 30.3 pg (25-34); MEAN CORPUSCULAR HGB CONC 33.1 g/dl (32-36); MEAN PLATELET VOLUME 12.2 fL (7.4-10.4); MONO % 6.3 %; NEUT % 53.8 %; NEUT ABS # 3.45 K/uL (1.4-6.5); PLATELET COUNT 185 K/uL (130-400); RED CELL DISTRIBUTION WIDTH CV 13.4 % (11.5-14.5); RED CELL DISTRIBUTION WIDTH SD 44.3 fL (36.4-46.3)
[2018-02-07 11:16] LABS: BLOOD UREA NITROGEN 20 mg/dl (7-18); CALCIUM 9.4 mg/dl (8.5-10.1); CARBON DIOXIDE 32 mmol/L (21-32); GLUCOSE 100 mg/dl (70-99); POTASSIUM 3.9 mmol/L (3.5-5.1); SODIUM 141 mmol/L (136-145)
[2018-02-07 11:18] LABS: HEMOGLOBIN A1C 5.3 % (4.5-5.6)
== END | disposition home or self-care (01) ==
LOC: C.RAD 09:54
PROVIDERS: ATTEND Urology
DX: Z01.818 Encounter for other preprocedural examination (principal); Z01.810 Encounter for preprocedural cardiovascular examination; Z01.812 Encounter for preprocedural laboratory examination

== ENCOUNTER 2018-02-20 05:36 | Day surgery (SDC) | payer OTHER ==
[2018-02-01 13:18] VITALS: BMI 21.0
--- NOTE | 2018-02-06 15:43 | PAT Medication Instructions ---
Service Date Feb 06, 2018. Current Home Medication List Alprazolam (Xanax), 1 MG PO TID Atorvastatin (Lipitor), 10 MG PO QPM Benzonatate (Tessalon Perles), 100 MG PO DIRECTED PRN for Cough Buspirone Hcl (Buspar), 15 MG PO TID Cetirizine (Zyrtec), 10 MG PO QAM Cholecalciferol (Vitamin D), 1,000 UNITS PO QAM Doxycycline Monohydrate (Monodox), 100 MG PO BID Fish Oil ([place]-3), 1 CAP PO QPM Fluticasone Propionate (Nasal) (Flonase Allergy Relief), 50 MCG SATYA DAILY PRN for Nasal Congestion Gabapentin (Neurontin), 300 MG PO TID Ibuprofen (Advil), 400 MG PO HS Lisinopril (Zestril), 2.5 MG PO QAM Melatonin-Pyridoxine (Melatin), 6 MG PO HS Metformin Hcl (Glucophage), 500 MG PO BID Omeprazole (Prilosec), 20 MG PO QPM Tamsulosin Hcl (Flomax), 0.4 MG PO QAM Trazodone Hcl (Desyrel), 300 MG PO HS Ziprasidone (Ziprasidone HCl), 160 MG PO HS Medication Instructions For Your Scheduled Surgery - Check with surgeon for instructions: Ibuprofen (Advil), 400 MG PO HS - Hold the following medications starting 02/07/18: Fish Oil ([place]-3), 1 CAP PO QPM - Hold the following medications the morning of surgery: Benzonatate (Tessalon Perles), 100 MG PO DIRECTED PRN for Cough Cetirizine (Zyrtec), 10 MG PO QAM Cholecalciferol (Vitamin D), 1,000 UNITS PO QAM Lisinopril (Zestril), 2.5 MG PO QAM Metformin Hcl (Glucophage), 500 MG PO BID - Take the following medications the morning of surgery with a sip of water: Tamsulosin Hcl (Flomax), 0.4 MG PO QAM Fluticasone Propionate (Nasal) (Flonase Allergy Relief), 50 MCG SATYA DAILY PRN for Nasal Congestion (if needed) Gabapentin (Neurontin), 300 MG PO TID Doxycycline Monohydrate (Monodox), 100 MG PO BID Buspirone Hcl (Buspar), 15 MG PO TID Alprazolam (Xanax), 1 MG PO TID - Take the following medications as scheduled the night before surgery: Ziprasidone (Ziprasidone HCl), 160 MG PO HS Trazodone Hcl (Desyrel), 300 MG PO HS' Omeprazole (Prilosec), 20 MG PO QPM Melatonin-Pyridoxine (Melatin), 6 MG PO HS Metformin Hcl (Glucophage), 500 MG PO BID Fluticasone Propionate (Nasal) (Flonase Allergy Relief), 50 MCG SATYA DAILY PRN for Nasal Congestion (if needed) Gabapentin (Neurontin), 300 MG PO TID Doxycycline Monohydrate (Monodox), 100 MG PO BID Buspirone Hcl (Buspar), 15 MG PO TID Benzonatate (Tessalon Perles), 100 MG PO DIRECTED PRN for Cough (if needed) Alprazolam (Xanax), 1 MG PO TID Atorvastatin (Lipitor), 10 MG PO QPM If you have any questions please call us at [phone] or [phone] or [phone]
[~2018-02-20] VITALS: Ht 170.2 cm; Wt 58.1 kg
[~2018-02-20 05:36] MED LIST changes: -DOXY100C76 PO
[2018-02-20] MEDS ORDERED: CIPROFLOXACIN / D5W 400 MG IV SCH (06:00)
[2018-02-20] MEDS ORDERED: LACTATED RINGER'S 1000ML 1,000 ML IV SCH (06:00)
[2018-02-20 06:07] VITALS: BP 108/59; PULSE 50; TEMP 36.7; O2SAT 94; Ht 170.2 cm; Wt 58.1 kg
[2018-02-20] MEDS ORDERED: MIDAZOLAM HCL 1 MG/ML 2ML VIAL ONE (06:51)
[2018-02-20] MEDS ORDERED: FENTANYL CITRATE INJ 50 MCG/1 ML 2 ML VIAL ONE (06:51)
[2018-02-20] MEDS ORDERED: ATROPINE SULFATE 0.1 MG/ML 5ML SYR IV PRN (07:00)
[2018-02-20] MEDS ORDERED: ONDANSETRON INJ 2 MG/ML 2 ML VIAL IV PRN (07:00)
[2018-02-20] MEDS ORDERED: EpHEDrine SULFATE INJ 50 MG/ML AMP IV PRN (07:00)
--- NOTE | 2018-02-20 07:04 | History & Physical Bridge Note ---
H&P Re-Evaluation Bridge Note: I have examined the patient, reviewed the History & Physical and in the interval since the performance of the History & Physical I have noted the following changes of clinical significance: No changes noted
[2018-02-20] MEDS ORDERED: CIPR-255 PO (07:20)
[2018-02-20] MEDS ORDERED: OXYC-57 PO (07:20)
--- NOTE | 2018-02-20 07:20 | Discharge Instructions ---
Discharge Instructions Date of Service Feb 20, 2018. Admission Reason for Admission: Lesion Of Bladder, Urinary Urgency Discharge Discharge Diagnosis / Problem: Bladder lesions Discharge Goals Goal(s): Decrease discomfort, Improve function Activity Recommendations Activity Limitations: resume your previous activity Lifting Limitations: gradually increase as tolerated Exercise/Sports Limitations: gradually increase as tolerated . Instructions / Follow-Up Instructions / Follow-Up May have blood in urine. May have pelvic discomfort. Current Hospital Diet Patient's current hospital diet: Discharge Diet Recommended Diet: Regular Diet Procedures Procedures Performed: Cystoscopy Pending Studies Studies pending at discharge: no Laboratory Results Hemoglobin A1c Test 02/07/18 10:19 Range/Units Estimated Average Glucose 105 mg/dl Hemoglobin A1c 5.3 4.5-5.6 % Medical Emergencies . Who to Call and When: Medical Emergencies: If at any time you feel your situation is an emergency, please call 911 immediately. . Non-Emergent Contact Non-Emergency issues call your: Primary Care Provider, Urologist Call Non-Emergent contact if: you have a fever, temperature is above 101, temperature is above 101.5, your pain is not controlled, your pain is worsening . . "Provider Documentation" section prepared by Everette Mckenna. .
[2018-02-20] MEDS ORDERED: PHEN-775 PO (07:21)
[2018-02-20] MEDS ORDERED: OXYCODONE/ACETAMINOPHEN 7.5-325 TAB PO PRN (07:30)
[2018-02-20] MEDS ORDERED: LIDOCAINE HCL 2% 2 ML VIAL (20MG/ML) ONE (07:40)
[2018-02-20] MEDS ORDERED: ONDANSETRON INJ 2 MG/ML 2 ML VIAL ONE (07:40)
[2018-02-20] MEDS ORDERED: GLYCOPYRROLATE INJ 0.2 MG/ML VIAL ONE (07:40)
[2018-02-20] MEDS ORDERED: PROPOFOL IV EMULSION 10 MG/ML 20 ML VIAL ONE (07:40)
--- NOTE | 2018-02-20 07:48 | [facility] Operative Report ---
Operative Report Operative Date Feb 20, 2018. Pre-Operative Diagnosis Hematuria, Dysuria Post-Operative Diagnosis Same Procedure(s) Performed Cystoscopy with biopsy and fulguration Surgeon Bala Estimated Blood Loss Minimal Findings Small lesions of bladder Specimens Biopsy of bladder: 1. Bladder Neck 2. Left lateral wall Drains None Anesthesia Type MAC Complication(s) none Disposition Recovery Room / PACU Indications Lesions with urgency and frequency. Risks and benefits discussed at length. Description of Procedure Patient was consented and brought back to the operating room. Patient was placed under anesthesia in the supine position and moved to the dorsal lithotomy position. Patient was prepped and draped in the regular sterile fashion. A time out was completed. A 30degree Cystoscope was placed into the bladder and the entire bladder was examined. The UO's were identified. Lesions in the bladder were identified. These were biopsied. The base of the biopsy was fulgurated. All bleeding was controlled. The pathology was sent for analysis. No other concerning areas were noted. The bladder was emptied. The scope was removed. The patient was cleaned, aroused from anesthesia, and transferred to the pacu in stable condition having tolerated the procedure well with no complications. I was present and participated in all aspects of the procedure. The patient will be monitored in the PACU until transferred. I attest to the content of the Intraoperative Record and any orders documented therein. Any exceptions are noted below.
[2018-02-20] MEDS: FENTANYL CITRATE INJ 50 MCG/1 ML 2 ML VIAL IV PRN ×2 (08:12→08:24)
[2018-02-20 08:50] VITALS: BP 97/59; PULSE 48; TEMP 36.5; O2SAT 98
[2018-02-20 09:07] VITALS: BP 97/59; PULSE 48; TEMP 36.5; O2SAT 98
[2018-02-20 09:20] VITALS: BP 97/59; PULSE 56; TEMP 36.5; O2SAT 100
[2018-02-20 09:50] VITALS: BP 98/64; PULSE 56; TEMP 36.4; O2SAT 100
--- NOTE | 2018-02-20 12:58 | Anesthesiology Progress Note ---
Anesthesia Post Op Note Date & Time Feb 20, 2018 at 12:58 Vital Signs Pain Intensity: 1 Vital Signs Past 12 Hours Date Time Temp Pulse Resp B/P (MAP) Pulse Ox O2 Delivery O2 Flow Rate FiO2 02/20/18 09:50 36.4 56 16 98/64 100 Room Air 02/20/18 09:20 36.5 56 16 97/59 100 Room Air 02/20/18 08:50 36.5 48 16 97/59 98 Room Air 02/20/18 08:45 53 21 101/66 96 Room Air 02/20/18 08:35 36.5 52 52 99/61 97 Room Air 02/20/18 08:25 52 11 110/68 100 Nasal Cannula 2 02/20/18 08:15 53 12 113/64 100 Nasal Cannula 2 02/20/18 08:05 53 15 113/68 100 Nasal Cannula 2 02/20/18 07:55 36.2 54 16 112/65 100 Nasal Cannula 2 02/20/18 06:07 36.7 50 16 108/59 (75) 94 Room Air Notes Mental Status: alert / awake / arousable, participated in evaluation Pt Amnestic to Procedure: Yes Nausea / Vomiting: adequately controlled Pain: adequately controlled Airway Patency, RR, SpO2: stable & adequate BP & HR: stable & adequate Hydration State: stable & adequate Anesthetic Complications: no major complications apparent
== END 2018-02-20 10:30 | disposition home or self-care (01) ==
LOC: C.ACU 05:36
PROVIDERS: ATTEND Urology
DX: N30.20 Other chronic cystitis without hematuria (principal); E11.9 Type 2 diabetes mellitus without complications; K21.9 Gastro-esophageal reflux disease without esophagitis; I10 Essential (primary) hypertension; M79.7 Fibromyalgia; E55.9 Vitamin D deficiency, unspecified; Z88.6 Allergy status to analgesic agent; Z88.0 Allergy status to penicillin; Z87.01 Personal history of pneumonia (recurrent); Z87.440 Personal history of urinary (tract) infections; Z90.49 Acquired absence of other specified parts of digestive tract; Z90.722 Acquired absence of ovaries, bilateral

== ENCOUNTER → 2018-02-28 | Outpatient (CLI) | payer OTHER ==
[~2018-02-28] MED LIST changes: +CIPR-255 PO; +OPTIRAY 320 IV PRN; +OXYC-57 PO; +PHEN-775 PO
--- NOTE | 2018-03-03 08:18 | DIAGNOSTIC IMAGING REPORT ---
CT OF THE CHEST WITH IV CONTRAST CLINICAL HISTORY: R07.89 Chest wall tenderness R93.8 Abnormal chest x-ray COMPARISON STUDY: 11/27/2017, chest x-ray dated 02/07/2018 TECHNIQUE: Following the IV administration of 116 mL of Optiray-320, CT of the thorax was performed from the thoracic inlet to the lung bases. Images are reviewed in the axial, sagittal, and coronal planes. IV contrast was administered without complication. A dose lowering technique was utilized adhering to the principles of ALARA. CT DOSE: 193.56 mGy.cm FINDINGS: Thyroid: There is a multinodular thyroid. Thoracic aorta: The ascending thoracic aorta measures 36 mm. Pulmonary vasculature: The pulmonary trunk is normal in caliber. There are no central filling defects identified to suggest pulmonary embolus. Note that this examination was not protocoled for the evaluation of pulmonary emboli. HEART: The heart is normal in size and configuration, without pericardial effusion. Lungs and pleural spaces: There are no pleural effusions. There is no focal pulmonary consolidation. There are multiple tiny pulmonary nodules and micronodules. These remain unchanged the preceding study. Mediastinum: There is no mediastinal lymphadenopathy. Irina: There is no nodes of pathologic hilar adenopathy Axilla: There is no nodes of pathologic axillary lymphadenopathy Upper abdomen: There is a stable 17 mm left adrenal nodule Skeletal structures: There are no lytic or blastic osseous lesions. IMPRESSION: 1. No acute intrathoracic findings 2. Stable 17 mm left adrenal nodule 3. Multiple tiny pulmonary nodules and micronodules, unchanged the prior study 4. Interval resolution of the previously described right middle lobe pulmonary consolidation. 5. Interval resolution of the previous identified bilateral pleural effusions and septal edema Electronically signed by: Jonny Del Toro M.D. 02/28/2018 10:20 AM Dictated Date/Time: 02/28/2018 10:09 AM
== END | disposition home or self-care (01) ==
LOC: C.CTS 09:46
PROVIDERS: ATTEND Nurse Practitioner Adult Health
DX: R07.89 Other chest pain (principal); R93.8 Abnormal findings on diagnostic imaging of other specified body structures

== ENCOUNTER 2023-06-26 20:00 | Observation (INO) ==
[2023-06-26] MEDS ORDERED: MoRPHine SULFATE 4 MG/ML 1 ML CARP\\VIAL IV STA (20:10)
[2023-06-26] MEDS ORDERED: ONDANSETRON INJ 2 MG/ML 2 ML VIAL IV STA (20:10)
[2023-06-26 20:27] LABS: iSTAT Creatinine 0.8 mg/dl (0.6-1.3); iSTAT Hemoglobin 16.3 g/dl (12.0-16.0); iSTAT Ionized Calcium 1.18 mmol/l (1.12-1.32); iSTAT Potassium 3.3 mmol/L (3.3-5.0)
[2023-06-26 20:30] LABS: Basophils # (auto) 0.04 K/uL (0.00-0.20); Basophils % (auto) 0.3 %; Eosinophils # (auto) 0.01 K/uL (0.00-0.50); Eosinophils % (auto) 0.1 %; Hematocrit (blood only) 47.1 % (37.0-47.0); Hemoglobin 15.9 g/dl (12.0-16.0); Immature Granulocytes # (auto) 0.05 K/uL (0.01-0.20); Immature Granulocytes % (auto) 0.4 %; Lymphocytes # (auto) 1.78 K/uL (1.20-3.40); Lymphocytes % (auto) 14.4 %; Mean Corpuscular Hgb Conc 33.8 g/dL (32.0-36.0); Mean Corpuscular Volume 85.9 fL (80.0-100.0); Mean Platelet Volume 12.8 fL (9.4-12.4); Monocytes # (auto) 0.63 K/uL (0.11-0.59); Monocytes % (auto) 5.1 %; Neutrophils # (auto) 9.85 K/uL (1.40-6.50); Neutrophils % (auto) 79.7 %; Platelet Count 276 K/uL (130-400); RDW Coefficient of Variation 13.1 % (11.5-14.5); RDW Standard Deviation 40.7 fL (36.4-46.3); Red Blood Count 5.48 M/uL (4.20-5.40); White Blood Count 12.36 K/ul (4.8-10.8)
[2023-06-26 20:33] LABS: Base Excess VBG 5.2 mEq/L; HCO3 VBG 24 mmol/L; Oxygen Saturation VBG 98.8 %; PCO2 VBG 20 mmHg (38-50); PO2 VBG 97 mmHg; pH VBG 7.68 (7.36-7.41)
[2023-06-26] MEDS ORDERED: SODIUM CHLORIDE 0.9% 1,000 ML IV ONE ×2 (20:34→21:26)
[2023-06-26] MEDS ORDERED: OPTIRAY 320 125ml IV ONE (20:40)
[2023-06-26 20:44] LABS: Partial Thromboplastin Ratio 0.9; Partial Thromboplastin Time 25 Seconds (21-31); Prothrombin Time 11.2 Seconds (9.0-12.0)
[2023-06-26 20:56] LABS: Alanine Aminotransferase 12 U/L (7-52); Albumin Level 4.6 gm/dl (3.4-5.0); Alkaline Phosphatase 73 U/L (34-104); Anion Gap 12 (3-11); Aspartate Aminotransferase 12 U/L (13-39); BUN Creatinine Ratio 16.9 (10-20); Bilirubin Direct 0.1 mg/dl (0-0.2); Bilirubin,Total 1.1 mg/dl (0.2-1.0); Blood Urea Nitrogen 15 mg/dl (6-23); Calcium 10.5 mg/dl (8.6-10.3); Carbon Dioxide 26 mmol/L (21-32); Chloride 103 mmol/L (98-107); Est GFR (African American) 76.1 ml/min; Est GFR (Non-African American) 65.7 ml/min; Glucose 202 mg/dl (70-99(Fasting)); Lipase 9 U/L (11-82); Magnesium 1.4 mg/dl (1.7-2.4); Potassium 3.3 mmol/L (3.5-5.1); Sodium 141 mmol/L (136-145); Total Protein 7.4 gm/dl (6.0-8.3)
[2023-06-26 21:01] LABS: Troponin I High Sensitivity 3.6 pg/ml (0-14)
--- NOTE | 2023-06-26 21:31 | CT Scan Report ---
Exam(s): CTA CHEST W/WO Contrast IV Amt: 115 ml optiray 320 EXAM: CT Angiography Chest Without and With Intravenous Contrast CLINICAL HISTORY: Reason for exam: ro dissection. TECHNIQUE: Axial computed tomographic angiography images of the chest without and with intravenous contrast. CTDI is 49.87 mGy and DLP is 2158.34 mGy-cm. Automated exposure control was utilized for the study. A dose lowering technique was utilized adhering to the principles of ALARA. MIP reconstructed images were created and reviewed. CONTRAST: Patient received 115 ml optiray 320 of IV contrast COMPARISON: No relevant prior studies available. FINDINGS: Pulmonary arteries: Unremarkable. No pulmonary embolus. Aorta: No acute findings. No thoracic aortic aneurysm. Lungs: Faint perihilar atelectasis/collapse. No mass. Pleural space: Unremarkable. No significant effusion. No pneumothorax. Heart: Unremarkable. No cardiomegaly. No significant pericardial effusion. No evidence of RV dysfunction. Bones/joints: No acute fracture. No dislocation. Soft tissues: Unremarkable. Lymph nodes: Unremarkable. No enlarged lymph nodes. Gallbladder and bile ducts: Prior cholecystectomy. Adrenals: Small 2.5 cm left adrenal lesion demonstrating Hounsfield units of an adenoma. IMPRESSION: 1. No pulmonary embolus. 2. Small 2.5 cm left adrenal adenoma. Electronically signed by: Jing Gagnon MD 06/26/23 21:30 PM
--- NOTE | 2023-06-26 21:33 | CT Scan Report ---
Exam(s): CTA ABDOMEN + PELVIS With Contrast IV Amt: 115 ml optiray 320 EXAM: CT Angiography Abdomen and Pelvis With Intravenous Contrast CLINICAL HISTORY: Reason for exam: ro dissection. TECHNIQUE: Axial computed tomographic angiography images of the abdomen and pelvis with intravenous contrast. CTDI is 49.87 mGy and DLP is 2158.34 mGy-cm. Automated exposure control was utilized for the study. A dose lowering technique was utilized adhering to the principles of ALARA. MIP reconstructed images were created and reviewed. CONTRAST: Patient received 115 ml optiray 320 of IV contrast COMPARISON: CT of the chest, same day FINDINGS: VASCULATURE: Aorta: No acute findings. No abdominal aortic aneurysm. No dissection. Celiac trunk and mesenteric arteries: No acute findings. No occlusion or significant stenosis. Renal arteries: No acute findings. No occlusion or significant stenosis. Iliac arteries: No acute findings. No occlusion or significant stenosis. Lung bases: Unremarkable. No mass. No consolidation. ABDOMEN: Liver: Unremarkable. No mass. Gallbladder and bile ducts: Prior cholecystectomy. Mild intra-and extra hepatic ductal dilatation. Pancreas: Fatty infiltration of the pancreas. No ductal dilation. Spleen: Unremarkable. No splenomegaly. Adrenals: 2 cm left adrenal lesion, demonstrating Hounsfield units of the adenoma. No follow-up imaging required. Kidneys and ureters: Unremarkable. No hydronephrosis. No solid mass. Stomach and bowel: Unremarkable. No obstruction. No mucosal thickening. PELVIS: Appendix: No findings to suggest acute appendicitis. Bladder: Unremarkable. No mass. Reproductive: Unremarkable as visualized. ABDOMEN and PELVIS: Intraperitoneal space: Unremarkable. No significant fluid collection. No free air. Bones/joints: No acute fracture. No dislocation. Soft tissues: Unremarkable. Lymph nodes: Unremarkable. No enlarged lymph nodes. IMPRESSION: No acute findings in the arteries of the abdomen and pelvis. Electronically signed by: Jing Gagnon MD 06/26/23 21:32 PM
[2023-06-26] MEDS: MAGNESIUM SULFATE / D5W 1 GM/100 ML BAG IV SCH ×2 (22:07→23:16)
[2023-06-26 22:14] LABS: Appearance Urine Clear (Clear); Bilirubin Urine Negative (Negative); Blood Urine Negative (Negative); Color Urine Yellow; Glucose Urine UA Trace (Negative); Ketones Urine 1+ (Negative); Leukocyte Esterase Urine Negative (Negative); Nitrite Urine Negative (Negative); Protein Urine Negative (Negative); Specific Gravity Urine > 1.045 (1.000-1.030); Urobilinogen Urine Negative (Negative); pH Urine >= 9.0 (4.5-7.5)
[2023-06-26 23:26] LABS: Influenza A virus by PCR Negative (Neg); Influenza B virus by PCR Negative (Neg); RSV by PCR Negative (Neg); SARS CoV2 RNA(COVID-19) Ceph NEGATIVE (Negative)
--- NOTE | 2023-06-26 23:26 | XRay Report ---
SINGLE VIEW CHEST CLINICAL HISTORY: Sepsis. FINDINGS: An AP, portable, upright chest radiograph is compared to study dated 04/20/2023 and correla asa with chest CT performed earlier the same day 06/26/2023. The examination is mildly degraded by po rtable technique and patient rotation. The cardiomediastinal silhouette is top normal for projection . Chronic interstitial thickening is similar to previous. There is mild bibasilar scarring/atelectasi s. The lungs and pleural spaces are otherwise clear. No pneumothorax is seen. The skeletal structures are osteopenic. The bony thorax is grossly intact. IMPRESSION: No active disease in the chest. ACT 112: Negative or not required by law. Electronically signed by: Laurent Kent M.D. 06/26/2023 11:25 PM
[2023-06-26] MEDS ORDERED: GLUCAGON FOR INJ 1 MG VIAL SQ PRN (23:47)
[2023-06-26] MEDS ORDERED: GLUCOSE 10 TAB/TUBE PO PRN (23:47)
[2023-06-26] MEDS ORDERED: CARBOHYDRATES FOR HYPOGLYCEMIA PO PRN (23:47)
[2023-06-26] MEDS ORDERED: DEXTROSE 50% 50 ML SYRINGE IV PRN (23:47)
[2023-06-26] MEDS ORDERED: GLUCOSE 40% GEL 15 GM TUBE PO PRN (23:47)
[2023-06-26] MEDS ORDERED: NSS + 20MEQ KCL 20 MEQ/1,000 ML BAG IV STA (23:48)
[2023-06-26] MEDS ORDERED: LANTUS PER UNIT CHARGE SQ STA (23:51)
[2023-06-26] MEDS ORDERED: INSULIN ASPART PER UNIT CHARGE SC STA (23:54)
--- NOTE | 2023-06-27 00:38 | History & Physical Report ---
Date of Service June 27, 2023 Assessment & Plan (1) Diarrhea: Plan: Acute on chronic the patient has a history of irritable bowel syndrome with diarrhea. She had 4 episodes prior to presentation tonight nothing else in the ER. Supportive care. CT the abdomen pelvis nonacute. (2) Abdominal pain: Plan: Acute on chronic. Probable viral enteritis. Viral panel negative CT of the abdomen pelvis negative. Supportive care. (3) Lactic acidemia: Plan: Secondary to GI losses lactic acid initially 3 point 3 repeat is normal (4) Diabetes mellitus, type 2: Plan: Insulin therapy IV fluids monitor carefully titrate as needed (5) Adrenal cortical adenoma: Plan: Incidental finding on CAT scan of the abdomen pelvis should be followed as an outpatient per standard of care. (6) Chest pain: Plan: Patient complained of chest pain on presentation she has no chest pain at the time my exam her EKG is nonacute her CTA is negative. We will check troponins. This is probably nonspecific Plan As described above. Please refer to orders for further planning. Observation admission plan discharge hopefully tomorrow, pending clinical course. History of Present Illness Chief Complaint: Abdominal pain diarrhea Primary Care Provider: Jmi Welch DO This is a 72-year-old female who had 4 episodes of diarrhea on Tuesday prior to p resenting the ER for further evaluation and treatment with associated abdominal cramping and discomfort.. In the ER CT the abdomen pelvis was unremarkable, as well as an unremarkable CTA of the chest was obtained. EKG was nonacute sinus rhythm. The patient also had a negative COVID test and a negative influenza screen as well as negative RSV. We are called admit the patient for GI viral illness. Will hydrate start clears monitor carefully. If she has more diarrhea here we will send stools for culture and analysis for C. difficile and stool bio fire Allergies Allergy/AdvReac Type Severity Reaction Status Date / Time glipizide Allergy Severe Unknown Unverified 06/26/23 22:34 Penicillins Allergy Intermediate HIVES Verified 06/26/23 22:34 aspirin Allergy Mild "hives" Verified 06/26/23 22:34 erythromycin base Allergy Mild RASH Verified 06/26/23 22:34 peach Allergy Mild Bailey fuzz Verified 06/26/23 22:34 - hives tramadol Allergy Mild Nausea Verified 06/26/23 22:34 empagliflozin AdvReac abdominal Verified 06/26/23 22:34 [From Gigi] cramping metformin AdvReac diarrhea Verified 06/26/23 22:34 sitagliptin [From Michelle] AdvReac Abdominal Verified 06/26/23 22:34 Pain Home Medications Medication Instructions Recorded Confirmed Type cholecalciferol (vitamin D3) 25 1,000 unit PO QAM 12/18/18 06/26/23 History mcg (1,000 unit) capsule (Vitamin D3) omega 6-hci-wtp-fish oil 1,000 mg 3 cap PO HS 12/18/18 06/26/23 History (120 mg-180 mg) capsule (Fish Oil) fluticasone propionate 50 2 sprays intranasal DAILY PRN 04/17/19 06/26/23 History mcg/actuation nasal Allergy Symptoms spray,suspension (Flonase Allergy Relief) cetirizine 10 mg tablet (Zyrtec) 10 mg PO QAM 12/18/19 06/26/23 History doxepin 75 mg capsule 150 mg PO HS 02/14/21 06/26/23 History buspirone 10 mg tablet 20 mg PO TID 04/21/22 06/26/23 History albuterol sulfate 90 mcg/actuation 1 puff inhalation QID PRN 05/13/22 06/26/23 Rx aerosol inhaler shortness of breath or wheezing #6.7 grams lorazepam 1 mg tablet 1.5 mg PO HS 12/10/22 06/26/23 History melatonin 10 mg tablet 20 mg PO HS 12/10/22 06/26/23 History ondansetron 4 mg disintegrating 4 mg PO Q8H PRN nausea and 12/22/22 06/26/23 Rx tablet vomiting #30 tabs omeprazole 40 mg capsule,delayed 40 mg PO QAM #90 caps 01/17/23 06/26/23 Rx release atorvastatin 10 mg tablet 10 mg PO HS 02/23/23 06/26/23 History famotidine 40 mg tablet (Pepcid) 40 mg PO HS 02/23/23 06/26/23 History mirabegron 50 mg tablet,extended 50 mg PO QAM #90 tabs 03/25/23 06/26/23 Rx release 24 hr (Myrbetriq) solifenacin 10 mg tablet (Vesicare) 10 mg PO QAM #90 tabs 03/25/23 06/26/23 Rx sertraline 100 mg tablet 200 mg PO DAILY 04/20/23 06/26/23 History pregabalin 150 mg capsule 150 mg PO TID #270 caps 05/10/23 06/26/23 Rx insulin glargine U-300 conc 300 0 unit subcut .once daily 06/26/23 06/26/23 History unit/mL (1.5 mL) subcutaneous pen Past Med/Surg History Medical History (Updated 06/27/23 @ 00:44 by Brandon Zhu, PhD, DO) Chest pain Adrenal cortical adenoma Abdominal pain Diarrhea History of colon polyps Insomnia Bursitis of both hips IBS (irritable bowel syndrome) Lumbar radicular pain Lumbar spondylosis Hypertension Solitary thyroid nodule (~06/2013) benign FNA Allergies Chronic interstitial cystitis Urge and stress incontinence Chronic obstructive pulmonary disease no inhalers> controlled per pt Diabetic neuropathy Fibromyalgia GERD (gastroesophageal reflux disease) Diabetes mellitus, type 2 NIDDM Depression Anxiety Hyperlipidemia Arachnoiditis Degenerative disc disease, lumbar Surgical History S/P epidural steroid injection lumbar History of anesthesia reaction WITH FIRST CATARACT "WAS AWAKE DURING ENTIRE PROCEDURE" History of carpal tunnel surgery of left wrist History of cataract surgery bilat History of bladder surgery (~2018) benign lesion History of total abdominal hysterectomy and bilateral salpingo-oophorectomy Status post biopsy of thyroid gland benign History of tooth extraction History of cystoscopy History of colonoscopy S/P cholecystectomy S/P section x1 Family History Mother Chronic thromboembolic disease Diabetes Coronary heart disease Osteoarthritis Obesity Family hx colonic polyps Grandmother (Maternal) Diabetes Grandmother (Paternal) Diabetes Sister Obesity Brother Obesity Father Prostate cancer Other No family history of adverse response to anesthesia Social History Smoking Status: Unknown if ever smoked Second Hand Exposure: No; Do You Dip or Chew Tobacco: No; Hx Alcohol Use: No Hx Substance Use: No Preferred Language: Tuvaluan Communication Ability: Effective Visual Impairment: Limited Hearing Ability: Normal Director Translation Required: No Beliefs That Will Affect Care: None marital status: Current Living Situation: Significant Other Current Living Situation Comment: ROOMATE current occupational status: retired How many Children do You have: 1 Feels Safe at Home: Yes Childhood Exposure to Second-Hand Smoke: No Diet: regular caffeine: Yes Dental Care, Regularly: Yes Physical Activity Frequency: Daily Physical Activity Frequency Comment: walk Seatbelt Use: always Sunscreen Use: Yes Assistive Devices: Glasses Review of Systems Review of Systems: A 10 point review of system was obtained and unless otherwise stated here or in history of present illness are negative and noncontributory to chief complaint. Physical Exam Physical Exam: In general: This is a 72-year-old female who is alert and oriented x 3, exam. She states he feels somewhat better than she did on presentation to the ER. She has had no more stools since presenting to the ER. She denies any active chest pain she does still admit to some mild abdominal cramping. HEENT: Normocephalic atraumatic pupils are equal round and reactive to light bilaterally. No scleral icterus no conjunctival injection external auditory canals are patent septum is in the midline nose is without discharge oral mucosa is pink and moist without lesion. The patient does have underlying chronic tardive dyskinesia NECK: Supple no rigidity no lymphadenopathy no thyromegaly no carotid bruits no JVD no masses. HEART: Regular rate and rhythm I do not appreciate any ectopy or rub. No murmur. LUNGS: Clear to auscultation bilaterally and anteriorly with no evidence of adventitious sounds/wheezes rales or rhonchi. ABDOMEN: Soft nontender, no rebound, no peritoneal signs, positive bowel sounds, no appreciable organomegaly. EXTREMITIES: Obese, intact, no peripheral cyanosis, clubbing or edema. Strength is 5 out of 5 in extremities x4, no pathological reflexes. NEUROLOGICAL: Cranial nerves II through XII are grossly intact with no focal deficit elicited upon examination. No tremor. Again tardive dyskinesias noted on neurologic exam. Results & Data Results & Data Vital Signs (Past 12 Hours) Vital Signs Temp Pulse Resp BP Pulse Ox O2 Del Method 06/27/23 00:11 84 06/26/23 22:31 74 18 06/26/23 22:31 175/105 H 06/26/23 22:00 82 19 182/144 H 96 Room Air 06/26/23 21:31 79 18 160/115 H 100 Room Air 12/17/23 21:20 70 18 163/114 H 97 Room Air 06/26/23 21:19 70 29 H 163/114 H 95 06/26/23 21:17 97 Room Air 06/26/23 21:03 36.8 C 70 28 H 174/98 H 97 Room Air 06/26/23 21:03 Room Air 06/26/23 21:00 74 17 99 06/26/23 21:00 174/98 H 06/26/23 20:57 99 06/26/23 20:20 77 23 97 06/26/23 20:09 80 27 H 98 06/26/23 20:09 80 Code Status & VTE Plan Code Status Full code I discussed with patient PG Care Time/CCT Total # of Minutes Spent Total Time Spent with Patient: Total time spent is greater than 50% in coordination of care (as documented) at patient's floor/unit and/or counseling patient: Coding Level of Care Code 98197 INT INP/OBS CARE 3/75MIN Diagnoses Diarrhea R19.7 Abdominal pain R10.9 Lactic acidemia E87.20 Diabetes mellitus, type 2 E11.9 Adrenal cortical adenoma D35.00 Chest pain R07.9
--- NOTE | 2023-06-27 00:38 | Emergency Department Note ---
History of Present Illness General Chief complaint: Shortness of Breath/Dyspnea Stated complaint: ABD PAIN, DIAPHORETIC, WHEEZING Time Seen by Provider: 06/26/23 20:01 History of Present Illness Provider complaint: Abdominal pain shortness of breath Maximum Pain Intensity: 10 72-year-old female presents emergency department for abdominal pain or shortness of breath. Patient reports her symptoms began today. Patient reports epigastric abdominal pain that radiated into her chest. She reports shortness of breath. No fevers. No falls or traumas. No melena or hematochezia. She reports nausea and vomiting. No hematemesis cough and emesis of bilious vomiting. Home Medications Medication Instructions Recorded Confirmed Type cholecalciferol (vitamin D3) 25 1,000 unit PO QAM 12/18/18 06/26/23 History mcg (1,000 unit) capsule (Vitamin D3) omega [id number] oil 1,000 mg 3 cap PO HS 12/18/18 06/26/23 History (120 mg-180 mg) capsule (Fish Oil) fluticasone propionate 50 2 sprays intranasal DAILY PRN 04/17/19 06/26/23 History mcg/actuation nasal Allergy Symptoms spray,suspension (Flonase Allergy Relief) cetirizine 10 mg tablet (Zyrtec) 10 mg PO QAM 12/18/19 06/26/23 History doxepin 75 mg capsule 150 mg PO HS 02/14/21 06/26/23 History buspirone 10 mg tablet 20 mg PO TID 04/21/22 06/26/23 History albuterol sulfate 90 mcg/actuation 1 puff inhalation QID PRN 05/13/22 06/26/23 Rx aerosol inhaler shortness of breath or wheezing #6.7 grams lorazepam 1 mg tablet 1.5 mg PO HS 12/10/22 06/26/23 History melatonin 10 mg tablet 20 mg PO HS 12/10/22 06/26/23 History ondansetron 4 mg disintegrating 4 mg PO Q8H PRN nausea and 12/22/22 06/26/23 Rx tablet vomiting #30 tabs omeprazole 40 mg capsule,delayed 40 mg PO QAM #90 caps 01/17/23 06/26/23 Rx release atorvastatin 10 mg tablet 10 mg PO HS 02/23/23 06/26/23 History famotidine 40 mg tablet (Pepcid) 40 mg PO HS 02/23/23 06/26/23 History mirabegron 50 mg tablet,extended 50 mg PO QAM #90 tabs 03/25/23 06/26/23 Rx release 24 hr (Myrbetriq) solifenacin 10 mg tablet (Vesicare) 10 mg PO QAM #90 tabs 03/25/23 06/26/23 Rx sertraline 100 mg tablet 200 mg PO DAILY 04/20/23 06/26/23 History pregabalin 150 mg capsule 150 mg PO TID #270 caps 05/10/23 06/26/23 Rx insulin glargine U-300 conc 300 0 unit subcut .once daily 06/26/23 06/26/23 History unit/mL (1.5 mL) subcutaneous pen Allergies Allergy/AdvReac Type Severity Reaction Status Date / Time glipizide Allergy Severe Unknown Unverified 06/26/23 22:34 Penicillins Allergy Intermediate HIVES Verified 06/26/23 22:34 aspirin Allergy Mild "hives" Verified 06/26/23 22:34 erythromycin base Allergy Mild RASH Verified 06/26/23 22:34 peach Allergy Mild Wirt fuzz Verified 06/26/23 22:34 - hives tramadol Allergy Mild Nausea Verified 06/26/23 22:34 empagliflozin AdvReac abdominal Verified 06/26/23 22:34 [From Jardiance] cramping metformin AdvReac diarrhea Verified 06/26/23 22:34 sitagliptin [From Januvia] AdvReac Abdominal Verified 06/26/23 22:34 Pain Past Med/Surg History Medical History History of colon polyps Insomnia Bursitis of both hips IBS (irritable bowel syndrome) Lumbar radicular pain Lumbar spondylosis Hypertension Solitary thyroid nodule (~06/2013) benign FNA Allergies Chronic interstitial cystitis Urge and stress incontinence Chronic obstructive pulmonary disease no inhalers> controlled per pt Diabetic neuropathy Fibromyalgia GERD (gastroesophageal reflux disease) Diabetes mellitus, type 2 NIDDM Depression Anxiety Hyperlipidemia Arachnoiditis Degenerative disc disease, lumbar Surgical History S/P epidural steroid injection lumbar History of anesthesia reaction WITH FIRST CATARACT "WAS AWAKE DURING ENTIRE PROCEDURE" History of carpal tunnel surgery of left wrist History of cataract surgery bilat History of bladder surgery (~2018) benign lesion History of total abdominal hysterectomy and bilateral salpingo-oophorectomy Status post biopsy of thyroid gland benign History of tooth extraction History of cystoscopy History of colonoscopy S/P cholecystectomy S/P section x1 Family History Mother Chronic thromboembolic disease Diabetes Coronary heart disease Osteoarthritis Obesity Family hx colonic polyps Grandmother (Maternal) Diabetes Grandmother (Paternal) Diabetes Sister Obesity Brother Obesity Father Prostate cancer Other No family history of adverse response to anesthesia Social History Smoking Status: Unknown if ever smoked Second Hand Exposure: No; Do You Dip or Chew Tobacco: No; Hx Alcohol Use: No Hx Substance Use: No Preferred Language: [place] Citizen Communication Ability: Effective Visual Impairment: Limited Hearing Ability: Normal Concrete Tester Required: No Beliefs That Will Affect Care: None marital status: Current Living Situation: Significant Other Current Living Situation Comment: ROOMATE current occupational status: retired How many Children do You have: 1 Feels Safe at Home: Yes Childhood Exposure to Second-Hand Smoke: No Diet: regular caffeine: Yes Dental Care, Regularly: Yes Physical Activity Frequency: Daily Physical Activity Frequency Comment: walk Seatbelt Use: always Sunscreen Use: Yes Assistive Devices: Glasses Physical Exam Vital Signs Vital Signs - 24 hr 06/26/23 20:09 06/26/23 20:09 06/26/23 20:20 Temperature Temperature Source Pulse Rate 80 80 77 Pulse Rate from SpO2 Sensor 80 77 Respiratory Rate 27 H 23 Respiratory Effort / Characteristics Respiratory Depth Respiratory Pattern Blood Pressure Blood Pressure Mean Blood Pressure Position Pulse Oximetry 98 97 Oxygen Delivery Method Sepsis Recent Fever Within 48 Hours Sepsis New/Unexplained Change in Mental Status Sepsis Action Taken by Nursing 06/26/23 20:57 06/26/23 21:00 06/26/23 21:00 Temperature Temperature Source Pulse Rate 74 Pulse Rate from SpO2 Sensor 74 75 Respiratory Rate 17 Respiratory Effort / Characteristics Respiratory Depth Respiratory Pattern Blood Pressure 174/98 H Blood Pressure Mean 108 Blood Pressure Position Pulse Oximetry 99 99 Oxygen Delivery Method Sepsis Recent Fever Within 48 Hours Sepsis New/Unexplained Change in Mental Status Sepsis Action Taken by Nursing 06/26/23 21:03 06/26/23 21:03 06/26/23 21:17 Temperature 36.8 C Temperature Source Oral Pulse Rate 70 Pulse Rate from SpO2 Sensor Respiratory Rate 28 H Respiratory Effort / Characteristics Retracting Short of Breath Spontaneous Retracting Short of Breath Respiratory Depth Retractive Respiratory Pattern Tachypnea Tachypnea Blood Pressure 174/98 H Blood Pressure Mean 123 Blood Pressure Position Lying Pulse Oximetry 97 97 Oxygen Delivery Method Room Air Room Air Room Air Sepsis Recent Fever Within 48 Hours No Sepsis New/Unexplained Change in Mental Status No Sepsis Action Taken by Nursing No Action Required 06/26/23 21:19 06/26/23 21:20 06/26/23 21:31 Temperature Temperature Source Pulse Rate 70 70 79 Pulse Rate from SpO2 Sensor 75 70 79 Respiratory Rate 29 H 18 18 Respiratory Effort / Characteristics Respiratory Depth Respiratory Pattern Blood Pressure 163/114 H 163/114 H 160/115 H Blood Pressure Mean 130 130 130 Blood Pressure Position Pulse Oximetry 95 97 100 Oxygen Delivery Method Room Air Room Air Sepsis Recent Fever Within 48 Hours Sepsis New/Unexplained Change in Mental Status Sepsis Action Taken by Nursing 06/26/23 22:00 06/26/23 22:31 06/26/23 22:31 Temperature Temperature Source Pulse Rate 82 74 Pulse Rate from SpO2 Sensor 82 Respiratory Rate 19 18 Respiratory Effort / Characteristics Respiratory Depth Respiratory Pattern Blood Pressure 182/144 H 175/105 H Blood Pressure Mean 156 144 Blood Pressure Position Pulse Oximetry 96 Oxygen Delivery Method Room Air Sepsis Recent Fever Within 48 Hours Sepsis New/Unexplained Change in Mental Status Sepsis Action Taken by Nursing 06/27/23 00:11 Temperature Temperature Source Pulse Rate 84 Pulse Rate from SpO2 Sensor Respiratory Rate Respiratory Effort / Characteristics Respiratory Depth Respiratory Pattern Blood Pressure Blood Pressure Mean Blood Pressure Position Pulse Oximetry Oxygen Delivery Method Sepsis Recent Fever Within 48 Hours Sepsis New/Unexplained Change in Mental Status Sepsis Action Taken by Nursing Physical Exam HENT: Exam performed. -Head: Normocephalic and atraumatic. -Right Ear: External ear normal. No mastoid erythema -Left Ear: External ear normal. No mastoid erythema -Mouth/Throat: The oropharynx is clear and moist. No trismus in the jaw. No dental abscesses or uvula swelling. No oropharyngeal exudate or tonsillar abscesses. EYES: Conjunctivae and EOM are normal. Pupils are equal, round, and reactive to light. Right eye exhibits no discharge. Left eye exhibits no discharge. No scleral icterus. NECK: Normal range of motion. Neck supple. No JVD present. CV: Normal rate, regular rhythm, normal heart sounds and intact distal pulses. There is no peripheral edema. Palpable radial pulses bue. PULM/CHEST: Effort normal and breath sounds normal. No respiratory distress. No stridor. She has no wheezes. She has no rales. ABD: She has no distension. No mass is present. Diffuse tenderness to palpation. NEURO: She is alert and oriented to person, place, and time. Motor and sensation grossly intact. SKIN: diaphoretic. Course Course 2000: The patient was evaluated in room B3. A complete history and physical exam was performed Cardiac monitoring: An order was placed for continuous cardiac monitoring. The monitor shows a rate of 80 with sinus rhythm interpreted by me Patient is diaphoretic and hypertensive reporting abdominal pain that radiates into her chest. Will obtain i-STAT and then rule out dissection. 2100: CT angios viewed by me show no dissection. 2245: Vital signs stable. Labs show leukocytosis of 12.36. Venous pH 7.68 venous pCO2 20. Initial lactic acid 3.2. Magnesium 1.4. 30 cc/kg normal saline bolus based off the patient's ideal body weight was ordered. Procalcitonin less than 0.05. Urinalysis negative. Magnesium repletion started in the emergency department. [facility]. Administered Medications Discontinued Medications Sodium Chloride (Nss) 1,000 mls @ 999 mls/hr IV .Q1H1M ONE Stop: 06/26/23 21:34 Last Infusion: 06/26/23 22:30 Dose: Infused Documented By: Admin: 06/26/23 21:07 Dose: 999 mls/hr Documented By: CPB Sodium Chloride (Nss) 1,000 mls @ 999 mls/hr IV .Q1H1M ONE Stop: 06/26/23 22:26 Last Infusion: 06/26/23 23:29 Dose: Infused Documented By: Admin: 06/26/23 22:10 Dose: 999 mls/hr Documented By: CPB Magnesium Sulfate/Dextrose (Magnesium Sulfate / D5w) 1 gm in 100 mls @ 100 mls/hr IV Q1H EVLIS Stop: 06/26/23 23:35 Last Infusion: 06/27/23 00:26 Dose: Infused Documented By: Admin: 06/26/23 23:16 Dose: 100 mls/hr Documented By: Infusion: 06/26/23 23:07 Dose: Infused Documented By: Admin: 06/26/23 22:07 Dose: 100 mls/hr Documented By: CPB Ioversol (Optiray 320 125ml) 116 ml IV ONCE ONE Stop: 06/26/23 20:41 Last Admin: 06/26/23 20:41 Dose: 116 ml Documented By: FERMIN Morphine Sulfate (Morphine Sulfate 4 Mg/Ml 1 Ml Carp\\Vial) 4 mg IV NOW STA Stop: 06/26/23 20:11 Last Admin: 06/26/23 20:21 Dose: 4 mg Documented By: SHEEBA Ondansetron HCl (Ondansetron Inj 2 Mg/Ml 2 Ml Vial) 4 mg IV NOW STA Stop: 06/26/23 20:11 Last Admin: 06/26/23 20:21 Dose: 4 mg Documented By: SHEEBA Medical Decision Making Laboratory Data Attestation: I reviewed the patient's lab results. 06/26/23 20:16 06/26/23 20:16 Lab Results 06/26/23 06/26/23 06/26/23 Range/Units 20:09 20:14 20:16 WBC 12.36 H (4.8-10.8) K/ul RBC 5.48 H (4.20-5.40) M/uL Hgb 15.9 (12.0-16.0) g/dl POC Hgb 16.3 H (12.0-16.0) g/dl Hct 47.1 H (37.0-47.0) % POC Hct 48 H (37-47) % MCV 85.9 (80.0-100.0) fL MCH 29.0 (25.0-34.0) pg MCHC 33.8 (32.0-36.0) g/dL RDW Std Deviation 40.7 (36.4-46.3) fL RDW Coeff of Yamilka 13.1 (11.5-14.5) % Plt Count 276 (130-400) K/uL MPV 12.8 H (9.4-12.4) fL Immature Gran % (Auto) 0.4 % Neut % (Auto) 79.7 % Lymph % (Auto) 14.4 % [place] % (Auto) 5.1 % Eos % (Auto) 0.1 % Baso % (Auto) 0.3 % Neut # (Auto) 9.85 H (1.40-6.50) K/uL Lymph # (Auto) 1.78 (1.20-3.40) K/uL [place] # (Auto) 0.63 H (0.11-0.59) K/uL Eos # (Auto) 0.01 (0.00-0.50) K/uL Baso # (Auto) 0.04 (0.00-0.20) K/uL Immature Gran # (Auto) 0.05 (0.01-0.20) K/uL PT 11.2 (9.0-12.0) Seconds INR 1.0 (0.9-1.1) APTT 25 (21-31) Seconds PTT Ratio 0.9 VBG pH (7.36-7.41) VBG pCO2 (38-50) mmHg VBG pO2 mmHg VBG HCO3 mmol/L VBG O2 Saturation % VBG Base Excess mEq/L POC Sodium 142 (135-144) mmol/L Sodium 141 (136-145) mmol/L POC Potassium 3.3 (3.3-5.0) mmol/L Potassium 3.3 L (3.5-5.1) mmol/L POC Chloride 105 (101-112) mmol/L Chloride 103 (98-107) mmol/L Carbon Dioxide 26 (21-32) mmol/L POC Total CO2 23 L (24-31) mmol/L Anion Gap 12 H (3-11) POC Anion Gap 18.0 (16-25) mmol/L POC BUN 14 (7-18) mg/dl BUN 15 (6-23) mg/dl Creatinine 0.89 (0.6-1.2) mg/dl POC Creatinine 0.8 (0.6-1.3) mg/dl Est Cr Clr Drug Dosing Not Reportable Est GFR ( Amer) 76.1 ml/min Est GFR (Non-Af Amer) 65.7 ml/min BUN/Creatinine Ratio 16.9 (10-20) Glucose 202 H (70-99(Fasting)) mg/dl POC Glucose 197 H (70-99) mg/dl POC Glucose (other) 202 H (70-99) mg/dl Lactate 3.2 H* (0.4-2.0) mmol/L Calcium 10.5 H (8.6-10.3) mg/dl POC Ioniz Calcium Raquel 1.18 (1.12-1.32) mmol/l Magnesium 1.4 L (1.7-2.4) mg/dl Total Bilirubin 1.1 H (0.2-1.0) mg/dl Direct Bilirubin 0.1 (0-0.2) mg/dl AST 12 L (13-39) U/L ALT 12 (7-52) U/L Alkaline Phosphatase 73 (34-104) U/L Troponin I High Sens 3.6 (0-14) pg/ml Total Protein 7.4 (6.0-8.3) gm/dl Albumin 4.6 (3.4-5.0) gm/dl Lipase 9 L (11-82) U/L Procalcitonin < 0.05 (0-0.5) ng/ml Urine Color Urine Appearance (Clear) Urine pH (4.5-7.5) Ur Specific [place] (1.000-1.030) Urine Protein (Negative) Urine Glucose (UA) (Negative) Urine Ketones (Negative) Urine Blood (Negative) Urine Nitrite (Negative) Urine Bilirubin (Negative) Urine Urobilinogen (Negative) Ur Leukocyte Esterase (Negative) SARS-CoV-2 (PCR) (Negative) Influenza Type A (PCR) (Neg) Influenza Type B (PCR) (Neg) RSV (RT-PCR) (Neg) 06/26/23 06/26/23 06/26/23 Range/Units 20:25 22:04 22:38 WBC (4.8-10.8) K/ul RBC (4.20-5.40) M/uL Hgb (12.0-16.0) g/dl POC Hgb (12.0-16.0) g/dl Hct (37.0-47.0) % POC Hct (37-47) % MCV (80.0-100.0) fL MCH (25.0-34.0) pg MCHC (32.0-36.0) g/dL RDW Std Deviation (36.4-46.3) fL RDW Coeff of Yamilka (11.5-14.5) % Plt Count (130-400) K/uL MPV (9.4-12.4) fL Immature Gran % (Auto) % Neut % (Auto) % Lymph % (Auto) % [place] % (Auto) % Eos % (Auto) % Baso % (Auto) % Neut # (Auto) (1.40-6.50) K/uL Lymph # (Auto) (1.20-3.40) K/uL [place] # (Auto) (0.11-0.59) K/uL Eos # (Auto) (0.00-0.50) K/uL Baso # (Auto) (0.00-0.20) K/uL Immature Gran # (Auto) (0.01-0.20) K/uL PT (9.0-12.0) Seconds INR (0.9-1.1) APTT (21-31) Seconds PTT Ratio VBG pH 7.68 H (7.36-7.41) VBG pCO2 20 L (38-50) mmHg VBG pO2 97 mmHg VBG HCO3 24 mmol/L VBG O2 Saturation 98.8 % VBG Base Excess 5.2 mEq/L POC Sodium (135-144) mmol/L Sodium (136-145) mmol/L POC Potassium (3.3-5.0) mmol/L Potassium (3.5-5.1) mmol/L POC Chloride (101-112) mmol/L Chloride (98-107) mmol/L Carbon Dioxide (21-32) mmol/L POC Total CO2 (24-31) mmol/L Anion Gap (3-11) POC Anion Gap (16-25) mmol/L POC BUN (7-18) mg/dl BUN (6-23) mg/dl Creatinine (0.6-1.2) mg/dl POC Creatinine (0.6-1.3) mg/dl Est Cr Clr Drug Dosing Est GFR ( Amer) ml/min Est GFR (Non-Af Amer) ml/min BUN/Creatinine Ratio (10-20) Glucose (70-99(Fasting)) mg/dl POC Glucose (70-99) mg/dl POC Glucose (other) (70-99) mg/dl Lactate (0.4-2.0) mmol/L Calcium (8.6-10.3) mg/dl POC Ioniz Calcium Raquel (1.12-1.32) mmol/l Magnesium (1.7-2.4) mg/dl Total Bilirubin (0.2-1.0) mg/dl Direct Bilirubin (0-0.2) mg/dl AST (13-39) U/L ALT (7-52) U/L Alkaline Phosphatase (34-104) U/L Troponin I High Sens (0-14) pg/ml Total Protein (6.0-8.3) gm/dl Albumin (3.4-5.0) gm/dl Lipase (11-82) U/L Procalcitonin (0-0.5) ng/ml Urine Color Yellow Urine Appearance Clear (Clear) Urine pH >= 9.0 H (4.5-7.5) Ur Specific [place] > 1.045 H (1.000-1.030) Urine Protein Negative (Negative) Urine Glucose (UA) Trace H (Negative) Urine Ketones 1+ H (Negative) Urine Blood Negative (Negative) Urine Nitrite Negative (Negative) Urine Bilirubin Negative (Negative) Urine Urobilinogen Negative (Negative) Ur Leukocyte Esterase Negative (Negative) SARS-CoV-2 (PCR) NEGATIVE (Negative) Influenza Type A (PCR) Negative (Neg) Influenza Type B (PCR) Negative (Neg) RSV (RT-PCR) Negative (Neg) 06/26/23 Range/Units 23:00 WBC (4.8-10.8) K/ul RBC (4.20-5.40) M/uL Hgb (12.0-16.0) g/dl POC Hgb (12.0-16.0) g/dl Hct (37.0-47.0) % POC Hct (37-47) % MCV (80.0-100.0) fL MCH (25.0-34.0) pg MCHC (32.0-36.0) g/dL RDW Std Deviation (36.4-46.3) fL RDW Coeff of Yamilka (11.5-14.5) % Plt Count (130-400) K/uL MPV (9.4-12.4) fL Immature Gran % (Auto) % Neut % (Auto) % Lymph % (Auto) % [place] % (Auto) % Eos % (Auto) % Baso % (Auto) % Neut # (Auto) (1.40-6.50) K/uL Lymph # (Auto) (1.20-3.40) K/uL [place] # (Auto) (0.11-0.59) K/uL Eos # (Auto) (0.00-0.50) K/uL Baso # (Auto) (0.00-0.20) K/uL Immature Gran # (Auto) (0.01-0.20) K/uL PT (9.0-12.0) Seconds INR (0.9-1.1) APTT (21-31) Seconds PTT Ratio VBG pH (7.36-7.41) VBG pCO2 (38-50) mmHg VBG pO2 mmHg VBG HCO3 mmol/L VBG O2 Saturation % VBG Base Excess mEq/L POC Sodium (135-144) mmol/L Sodium (136-145) mmol/L POC Potassium (3.3-5.0) mmol/L Potassium (3.5-5.1) mmol/L POC Chloride (101-112) mmol/L Chloride (98-107) mmol/L Carbon Dioxide (21-32) mmol/L POC Total CO2 (24-31) mmol/L Anion Gap (3-11) POC Anion Gap (16-25) mmol/L POC BUN (7-18) mg/dl BUN (6-23) mg/dl Creatinine (0.6-1.2) mg/dl POC Creatinine (0.6-1.3) mg/dl Est Cr Clr Drug Dosing Est GFR ( Amer) ml/min Est GFR (Non-Af Amer) ml/min BUN/Creatinine Ratio (10-20) Glucose (70-99(Fasting)) mg/dl POC Glucose (70-99) mg/dl POC Glucose (other) (70-99) mg/dl Lactate 1.3 (0.4-2.0) mmol/L Calcium (8.6-10.3) mg/dl POC Ioniz Calcium Raquel (1.12-1.32) mmol/l Magnesium (1.7-2.4) mg/dl Total Bilirubin (0.2-1.0) mg/dl Direct Bilirubin (0-0.2) mg/dl AST (13-39) U/L ALT (7-52) U/L Alkaline Phosphatase (34-104) U/L Troponin I High Sens (0-14) pg/ml Total Protein (6.0-8.3) gm/dl Albumin (3.4-5.0) gm/dl Lipase (11-82) U/L Procalcitonin (0-0.5) ng/ml Urine Color Urine Appearance (Clear) Urine pH (4.5-7.5) Ur Specific [place] (1.000-1.030) Urine Protein (Negative) Urine Glucose (UA) (Negative) Urine Ketones (Negative) Urine Blood (Negative) Urine Nitrite (Negative) Urine Bilirubin (Negative) Urine Urobilinogen (Negative) Ur Leukocyte Esterase (Negative) SARS-CoV-2 (PCR) (Negative) Influenza Type A (PCR) (Neg) Influenza Type B (PCR) (Neg) RSV (RT-PCR) (Neg) Imaging Data Attestation: I personally reviewed and interpreted this imaging study as follows: My Impression: CT angio chest abdomen pelvis: No dissection Radiologist's Impression: Chest X-Ray 06/26/23 20:07 SINGLE VIEW CHEST CLINICAL HISTORY: Sepsis. FINDINGS: An AP, portable, upright chest radiograph is compared to study dated 04/20/2023 and correlated with chest CT performed earlier the same day 06/26/2023. The examination is mildly degraded by portable technique and patient rotation. The cardiomediastinal silhouette is top normal for projection. Chronic interstitial thickening is similar to previous. There is mild bibasilar scarring/atelectasis. The lungs and pleural spaces are otherwise clear. No pneumothorax is seen. The skeletal structures are osteopenic. The bony thorax is grossly intact. IMPRESSION: No active disease in the chest. ACT 112: Negative or not required by law. Electronically signed by: Laurent Kent M.D. 06/26/2023 11:25 PM Abdomen/Pelvis CTA 06/26/23 20:09 Exam(s): CTA ABDOMEN + PELVIS With Contrast IV Amt: 115 ml optiray 320 EXAM: CT Angiography Abdomen and Pelvis With Intravenous Contrast CLINICAL HISTORY: Reason for exam: ro dissection. TECHNIQUE: Axial computed tomographic angiography images of the abdomen and pelvis with intravenous contrast. CTDI is 49.87 mGy and DLP is 2158.34 mGy-cm. Automated exposure control was utilized for the study. A dose lowering technique was utilized adhering to the principles of ALARA. MIP reconstructed images were created and reviewed. CONTRAST: Patient received 115 ml optiray 320 of IV contrast COMPARISON: CT of the chest, same day FINDINGS: VASCULATURE: Aorta: No acute findings. No abdominal aortic aneurysm. No dissection. Celiac trunk and mesenteric arteries: No acute findings. No occlusion or significant stenosis. Renal arteries: No acute findings. No occlusion or significant stenosis. Iliac arteries: No acute findings. No occlusion or significant stenosis. Lung bases: Unremarkable. No mass. No consolidation. ABDOMEN: Liver: Unremarkable. No mass. Gallbladder and bile ducts: Prior cholecystectomy. Mild intra-and extra hepatic ductal dilatation. Pancreas: Fatty infiltration of the pancreas. No ductal dilation. Spleen: Unremarkable. No splenomegaly. Adrenals: 2 cm left adrenal lesion, demonstrating Hounsfield units of the adenoma. No follow-up imaging required. Kidneys and ureters: Unremarkable. No hydronephrosis. No solid mass. Stomach and bowel: Unremarkable. No obstruction. No mucosal thickening. PELVIS: Appendix: No findings to suggest acute appendicitis. Bladder: Unremarkable. No mass. Reproductive: Unremarkable as visualized. ABDOMEN and PELVIS: Intraperitoneal space: Unremarkable. No significant fluid collection. No free air. Bones/joints: No acute fracture. No dislocation. Soft tissues: Unremarkable. Lymph nodes: Unremarkable. No enlarged lymph nodes. IMPRESSION: No acute findings in the arteries of the abdomen and pelvis. Electronically signed by: Jing Gagnon MD 06/26/23 21:32 PM Chest CTA 06/26/23 20:09 Exam(s): CTA CHEST W/WO Contrast IV Amt: 115 ml optiray 320 EXAM: CT Angiography Chest Without and With Intravenous Contrast CLINICAL HISTORY: Reason for exam: ro dissection. TECHNIQUE: Axial computed tomographic angiography images of the chest without and with intravenous contrast. CTDI is 49.87 mGy and DLP is 2158.34 mGy-cm. Automated exposure control was utilized for the study. A dose lowering technique was utilized adhering to the principles of ALARA. MIP reconstructed images were created and reviewed. CONTRAST: Patient received 115 ml optiray 320 of IV contrast COMPARISON: No relevant prior studies available. FINDINGS: Pulmonary arteries: Unremarkable. No pulmonary embolus. Aorta: No acute findings. No thoracic aortic aneurysm. Lungs: Faint perihilar atelectasis/collapse. No mass. Pleural space: Unremarkable. No significant effusion. No pneumothorax. Heart: Unremarkable. No cardiomegaly. No significant pericardial effusion. No evidence of RV dysfunction. Bones/joints: No acute fracture. No dislocation. Soft tissues: Unremarkable. Lymph nodes: Unremarkable. No enlarged lymph nodes. Gallbladder and bile ducts: Prior cholecystectomy. Adrenals: Small 2.5 cm left adrenal lesion demonstrating Hounsfield units of an adenoma. IMPRESSION: 1. No pulmonary embolus. 2. Small 2.5 cm left adrenal adenoma. Electronically signed by: Jing Gagnon MD 06/26/23 21:30 PM ECG Data Attestation: I personally reviewed and interpreted this ECG as follows: Additional Comments: EKG #1 at 2004: Sinus rhythm with a rate of 83. LA QRS and QTc intervals within normal limits. No ST elevation or ST depression. EKG #2 at 2132: Sinus rhythm with a rate of 75. LA 166 QRS [address] elevation or ST depression. [facility] Narrative 2000: The patient was evaluated in room B3. A complete history and physical exam was performed Cardiac monitoring: An order was placed for continuous cardiac monitoring. The monitor shows a rate of 80 with sinus rhythm interpreted by me Patient is diaphoretic and hypertensive reporting abdominal pain that radiates into her chest. Will obtain i-STAT and then rule out dissection. 2100: CT angios viewed by me show no dissection. 2244: Vital signs stable. Labs show leukocytosis of 12.36. Venous pH 7.68 venous pCO2 20. Initial lactic acid 3.2. Magnesium 1.4. 30 cc/kg normal saline bolus based off the patient's ideal body weight was ordered. Procalcitonin less than 0.05. Urinalysis negative. Magnesium repletion started in the emergency department. Patient will be admitted to the [facility] hospitalist team. Impression & Plan Hypomagnesemia, Lactic acidemia Discharge Plan Visit Data Chief Complaint: Shortness of Breath/Dyspnea Stated Complaint: ABD PAIN, DIAPHORETIC, WHEEZING ED Provider: Carlos Key Discharge Problem: Hypomagnesemia, Lactic acidemia Patient Disposition: Being Evaluated by Hospitalist Forms Stand Alone Forms: My [facility] Prescriptions Prescriptions: No Action omeprazole 40 mg capsule,delayed release(DR/EC) 40 mg PO QAM Qty: 90 3RF Myrbetriq 50 mg tablet extended release 24 hr 50 mg PO QAM Qty: 90 1RF solifenacin [Vesicare] 10 mg tablet 10 mg PO QAM Qty: 90 1RF pregabalin 150 mg capsule 150 mg PO TID Qty: 270 3RF Rx Instructions: not on list from pharmacy albuterol sulfate 90 mcg/actuation HFA aerosol inhaler 1 puff inhalation QID PRN (Reason: shortness of breath or wheezing) Qty: 6.7 0RF ondansetron 4 mg tablet,disintegrating 4 mg PO Q8H PRN (Reason: nausea and vomiting) Qty: 30 1RF buspirone 10 mg tablet 20 mg PO TID lorazepam 1 mg tablet 1.5 mg PO HS cholecalciferol (vitamin D3) [Vitamin D3] 1,000 unit Capsule 1,000 unit PO QAM Rx Instructions: otc unable to verify omega 0-vxl-dfc-fish oil [Fish Oil] 1,000 mg (120 mg-180 mg) Capsule 3 cap PO HS Rx Instructions: otc unable to verify fluticasone propionate [Flonase Allergy Relief] 50 mcg/actuation spray,suspension 2 sprays INTRANASAL DAILY PRN (Reason: Allergy Symptoms) Rx Instructions: unable to verify cetirizine [Zyrtec] 10 mg tablet 10 mg PO QAM Rx Instructions: otc unable to verify sertraline 100 mg tablet 200 mg PO DAILY insulin glargine U-300 conc 300 unit/mL (1.5 mL) insulin pen 0 unit subcut .once daily doxepin 75 mg capsule 150 mg PO HS melatonin 10 mg Tablet 20 mg PO HS Rx Instructions: otc unable to verify atorvastatin 10 mg tablet 10 mg PO HS Rx Instructions: take 1 tablet by mouth every evening famotidine [Pepcid] 40 mg tablet 40 mg PO HS Referrals Referrals: Jim Welch, [Primary Care Provider] -
[2023-06-27] MEDS ORDERED: ONDANSETRON INJ 2 MG/ML 2 ML VIAL IV STA (00:56)
[2023-06-27] MEDS ORDERED: ONDANSETRON 4 MG OD TAB PO PRN (01:53)
[2023-06-27] MEDS ORDERED: ACETAMINOPHEN 325 MG TAB PO PRN (01:53)
[2023-06-27] MEDS ORDERED: ALBUTEROL HFA 8 GM INHALER INH PRN (01:53)
[2023-06-27] MEDS ORDERED: FLUTICASONE PROPIONATE NA SPR 16 GM BTL PRN (01:53)
[2023-06-27] MEDS ORDERED: MELATONIN 3 MG TAB PO PRN (01:57)
[2023-06-27] MEDS: DOXEPIN HCL 75 MG CAPSULE PO SCH ×2 (03:07→20:38)
[2023-06-27] MEDS: busPIRone 5 MG TAB PO SCH ×4 (03:07→20:38)
[2023-06-27] MEDS: PANTOprazole 40 MG TAB PO SCH (09:02)
[2023-06-27] MEDS: SERTRALINE HCL 100 MG TABLET PO SCH (09:02)
[2023-06-27] MEDS: VIBEGRON 75 MG TAB PO SCH (09:03)
[2023-06-27] MEDS: CHOLECALCIFEROL 1,000 UNITS 25 MCG TAB PO SCH (09:03)
[2023-06-27] MEDS: OXYBUTYNIN CHLORIDE XL 5 MG TABCR PO SCH (09:03)
[2023-06-27] MEDS: CETIRIZINE HCL 10 MG TABLET PO SCH (09:04)
[2023-06-27] MEDS: ONDANSETRON INJ 2 MG/ML 2 ML VIAL IV PRN ×3 (09:08→21:53)
[2023-06-27] MEDS: LANTUS PER UNIT CHARGE SQ SCH ×2 (09:20→20:47)
[2023-06-27] MEDS: INSULIN ASPART PER UNIT CHARGE SC SCH ×4 (09:20→20:47)
[2023-06-27] MEDS: PREGABALIN 150 MG CAP PO SCH ×3 (09:26→20:46)
--- NOTE | 2023-06-27 16:10 | Communication Note ---
Date of Service: June 27, 2023 Please refer to the H&P dictated earlier this morning by Dr. Brandon Zhu for details of presentation on admission. In brief, the patient presented with abdominal pain and diarrhea. She has a history of irritable bowel syndrome and feels as though this is an acute flare of that. She had a negative CT abdomen/pelvis, negative COVID test, negative influenza screening, negative RSV. This could also be a viral gastroenteritis. Plan is to provide her with supportive care. She was also noted to be short of breath on exertion. This could be secondary to her deconditioning in general. She has some baseline deconditioning and with the constant bathroom visits because of her diarrhea, it is a little exertional for her. CT angio of the chest was negative for PE. An incidentally found adrenal cortical adenoma was seen on the CT of the abdomen. This will be pursued outpatient I saw the patient in the emergency room, examined her, spoke to the nurse, spoke to her daughter on the phone.
[2023-06-27] MEDS: FAMOTIDINE 40 MG TABLET PO SCH (20:37)
[2023-06-27] MEDS: ATORVASTATIN 10 MG TAB PO SCH (20:37)
--- NOTE | 2023-06-28 06:14 | Electrocardiogram Report ---
Test Reason : Blood Pressure : / mmHG Vent. Rate : 083 BPM Atrial Rate : 083 BPM P-R Int : 158 ms QRS Dur : 080 ms QT Int : 412 ms P-R-T Axes : 084 017 046 degrees QTc Int : 484 ms Poor data quality, interpretation may be adversely affected Normal sinus rhythm with sinus arrhythmia Prolonged QT When compared with ECG of 20-APR-2023 10:41, Premature atrial complexes are no longer Present Confirmed by Linwood Carlisle ([id number]) on 06/28/2023 6:13:48 AM Referred By: REFERRED SELF Confirmed By:Linwood Carlisle
[2023-06-28 06:39] LABS: Basophils # (auto) 0.04 K/uL (0.00-0.20); Basophils % (auto) 0.5 %; Eosinophils # (auto) 0.14 K/uL (0.00-0.50); Eosinophils % (auto) 1.6 %; Hematocrit (blood only) 41.7 % (37.0-47.0); Hemoglobin 13.8 g/dl (12.0-16.0); Immature Granulocytes # (auto) 0.04 K/uL (0.01-0.20); Immature Granulocytes % (auto) 0.5 %; Lymphocytes # (auto) 2.68 K/uL (1.20-3.40); Lymphocytes % (auto) 30.4 %; Mean Corpuscular Hemoglobin 29.3 pg (25.0-34.0); Mean Corpuscular Hgb Conc 33.1 g/dL (32.0-36.0); Mean Corpuscular Volume 88.5 fL (80.0-100.0); Mean Platelet Volume 12.4 fL (9.4-12.4); Monocytes # (auto) 0.65 K/uL (0.11-0.59); Monocytes % (auto) 7.4 %; Neutrophils # (auto) 5.27 K/uL (1.40-6.50); Neutrophils % (auto) 59.6 %; Platelet Count 198 K/uL (130-400); RDW Coefficient of Variation 13.5 % (11.5-14.5); RDW Standard Deviation 44.1 fL (36.4-46.3); Red Blood Count 4.71 M/uL (4.20-5.40); White Blood Count 8.82 K/ul (4.8-10.8)
[2023-06-28] MEDS: INSULIN ASPART PER UNIT CHARGE SC SCH ×4 (08:12→20:26)
[2023-06-28] MEDS: LANTUS PER UNIT CHARGE SQ SCH ×2 (08:12→20:30)
[2023-06-28] MEDS: busPIRone 5 MG TAB PO SCH ×3 (08:13→20:30)
[2023-06-28] MEDS: PREGABALIN 150 MG CAP PO SCH ×3 (08:13→20:30)
[2023-06-28] MEDS: OXYBUTYNIN CHLORIDE XL 5 MG TABCR PO SCH (08:14)
[2023-06-28] MEDS: VIBEGRON 75 MG TAB PO SCH (08:14)
[2023-06-28] MEDS: PANTOprazole 40 MG TAB PO SCH (08:14)
[2023-06-28] MEDS: SERTRALINE HCL 100 MG TABLET PO SCH (08:14)
[2023-06-28] MEDS: CETIRIZINE HCL 10 MG TABLET PO SCH (08:15)
[2023-06-28] MEDS: CHOLECALCIFEROL 1,000 UNITS 25 MCG TAB PO SCH (08:15)
[2023-06-28 08:40] LABS: Albumin Level 3.8 gm/dl (3.4-5.0); Bilirubin,Total 1.3 mg/dl (0.2-1.0); Calcium 8.6 mg/dl (8.6-10.3); Magnesium 1.7 mg/dl (1.7-2.4)
[2023-06-28 08:47] LABS: Albumin Globulin Ratio 1.9 (0.9-2); BUN Creatinine Ratio 14.6 (10-20); Creatinine Clr Calc Pharmacy 70.3 ml/min; Est GFR (African American) 76.1 ml/min; Est GFR (Non-African American) 65.7 ml/min; Total Protein 5.8 gm/dl (6.0-8.3)
[2023-06-28] MEDS ORDERED: POTASSIUM CHLORIDE CRTAB 20 MEQ TABCR PO STA (09:52)
[2023-06-28] MEDS: POTASSIUM CHLORIDE / WTR 10 MEQ/100 ML PLCT IV SCH ×4 (10:27→14:00)
[2023-06-28 13:27] LABS: Adenovirus F 40/41 PCR Not Detected (NotDetected); Astrovirus PCR Not Detected (NotDetected); Campylobacter PCR Not Detected (NotDetected); Cryptosporidium PCR Not Detected (NotDetected); Cyclospora cayetanensis PCR Not Detected (NotDetected); Entamoeba histolytica PCR Not Detected (NotDetected); Enteroaggregative E.coli(EAEC) Not Detected (NotDetected); Enteropathogenic E.coli (EPEC) Not Detected (NotDetected); Enterotoxigenic E.coli (ETEC) Not Detected (NotDetected); Giardia lamblia PCR Not Detected (NotDetected); Norovirus GI/GII PCR Not Detected (NotDetected); Plesiomonas shigelloides PCR Not Detected (NotDetected); Rotavirus A PCR Not Detected (NotDetected); Salmonella PCR Not Detected (NotDetected); Sapovirus PCR Not Detected (NotDetected); Shiga-like Toxin E.coli (STEC) Not Detected (NotDetected); Shigella/Enteroinvasive E.coli Not Detected (NotDetected); Vibrio cholerae PCR Not Detected (NotDetected); Vibrio species PCR Not Detected (NotDetected); Yersinia enterocolitica PCR Not Detected (NotDetected)
--- NOTE | 2023-06-28 13:35 | Hospitalist Progress Note ---
Date of Service June 28, 2023 Assessment & Plan (1) Diarrhea: Plan: Acute on chronic The patient has a history of irritable bowel syndrome with diarrhea. Providing supportive care CT the abdomen pelvis nonacute. Tolerating clear liquid diet, will advance to full liquid diet Improving Replete potassium (2) Abdominal pain: Plan: Acute on chronic. Probable viral enteritis. Viral panel negative CT of the abdomen pelvis negative. Supportive care. 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 (6) Chest pain: Plan: Patient complained of chest pain on presentation she has no chest pain at the time my exam her EKG is nonacute her CTA is negative. Negative troponin. This is probably nonspecific Plan Advance diet today Likely discharge tomorrow DVT prophylaxis: Lovenox Full code Admission and Anticipated Discharge Date Admission Date: June 26, 2023 Subjective Patient feels better today. Had 1 episode of diarrhea today. She is tolerating a clear liquid diet and would like to advance her diet. Review of Systems Review of Systems: All systems reviewed & are unremarkable except as noted in Subjective Physical Exam Physical Exam: General: Awake, conversant Heart: S1, S2/regular rate and rhythm, no murmur rubs or gallops Lungs: Clear to auscultation bilaterally. Normal effort Abdomen: Soft/nontender/nondistended. No hepatosplenomegaly Extremities: No clubbing/cyanosis. No edema Behavior: Appropriate, cooperative Results & Data Results & Data Vital Signs (Past 12 Hours) Vital Signs Temp Pulse Resp BP Pulse Ox O2 Del Method O2 Flow Rate 06/28/23 13:12 Room Air 06/28/23 11:39 36.7 C 66 18 155/88 H 97 Room Air 06/28/23 07:40 36.6 C 68 18 142/77 H 95 Nasal Cannula 2 06/28/23 02:36 36.5 C 75 18 156/87 H 98 Nasal Cannula 2 Laboratory Results Abnormal lab results 06/27/23 06/27/23 06/28/23 Range/Units 16:50 20:19 06:13 Ransom # (Auto) 0.65 H (0.11-0.59) K/uL Potassium 3.0 L (3.5-5.1) mmol/L Glucose 108 H (70-99(Fasting)) mg/dl POC Glucose 129 H 119 H (70-99) mg/dl Total Bilirubin 1.3 H (0.2-1.0) mg/dl Total Protein 5.8 L D (6.0-8.3) gm/dl Globulin 2.0 L (2.5-4.0) gm/dl 06/28/23 Range/Units 07:16 Ransom # (Auto) (0.11-0.59) K/uL Potassium (3.5-5.1) mmol/L Glucose (70-99(Fasting)) mg/dl POC Glucose 113 H (70-99) mg/dl Total Bilirubin (0.2-1.0) mg/dl Total Protein (6.0-8.3) gm/dl Globulin (2.5-4.0) gm/dl PG Care Time/CCT Total # of Minutes Spent Total Time Spent with Patient: Total time spent is greater than 50% in coordination of care (as documented) at patient's floor/unit and/or counseling patient: Coding Level of Care Code 72826 SUB INP/OBS CARE 2/35MIN Diagnoses Diarrhea R19.7 Abdominal pain R10.9 Lactic acidemia E87.20 Diabetes mellitus, type 2 E11.9 Adrenal cortical adenoma D35.00 Chest pain R07.9
[2023-06-28] MEDS ORDERED: CHLORASEPTIC (PHENOL) 1.4% SOLN 180 ML BTL MT PRN (14:02)
[2023-06-28] MEDS: ENOXAPARIN INJ 40 MG/0.4 ML SYR SQ SCH (15:00)
[2023-06-28] MEDS: ATORVASTATIN 10 MG TAB PO SCH (20:30)
[2023-06-28] MEDS: FAMOTIDINE 40 MG TABLET PO SCH (20:30)
[2023-06-28] MEDS: DOXEPIN HCL 75 MG CAPSULE PO SCH (20:30)
--- NOTE | 2023-06-28 22:52 | Electrocardiogram Report ---
Test Reason : Blood Pressure : / mmHG Vent. Rate : 075 BPM Atrial Rate : 075 BPM P-R Int : 166 ms QRS Dur : 076 ms QT Int : 428 ms P-R-T Axes : 031 015 038 degrees QTc Int : 477 ms Normal sinus rhythm Normal ECG When compared with ECG of 26-JUN-2023 20:05, No significant change was found Confirmed by Linwood Carlisle ([id number]) on 06/28/2023 10:51:26 PM Referred By: REFERRED SELF Confirmed By:Linwood Carlisle
[2023-06-29] MEDS: INSULIN ASPART PER UNIT CHARGE SC SCH ×2 (08:06→12:25)
[2023-06-29] MEDS: LANTUS PER UNIT CHARGE SQ SCH (08:11)
[2023-06-29] MEDS: busPIRone 5 MG TAB PO SCH ×2 (08:12→12:25)
[2023-06-29] MEDS: CETIRIZINE HCL 10 MG TABLET PO SCH (08:12)
[2023-06-29] MEDS: OXYBUTYNIN CHLORIDE XL 5 MG TABCR PO SCH (08:12)
[2023-06-29] MEDS: CHOLECALCIFEROL 1,000 UNITS 25 MCG TAB PO SCH (08:12)
[2023-06-29] MEDS: VIBEGRON 75 MG TAB PO SCH (08:13)
[2023-06-29] MEDS: PANTOprazole 40 MG TAB PO SCH (08:13)
[2023-06-29] MEDS: SERTRALINE HCL 100 MG TABLET PO SCH (08:13)
[2023-06-29] MEDS: ENOXAPARIN INJ 40 MG/0.4 ML SYR SQ SCH (08:13)
[2023-06-29] MEDS: PREGABALIN 150 MG CAP PO SCH ×2 (08:14→12:25)
[2023-06-29 09:58] LABS: BUN Creatinine Ratio 16.7 (10-20); Calcium 8.8 mg/dl (8.6-10.3); Creatinine Clr Calc Pharmacy 73.9 ml/min; Est GFR (African American) 81.6 ml/min; Est GFR (Non-African American) 70.4 ml/min; Potassium 3.9 mmol/L (3.5-5.1)
--- NOTE | 2023-06-29 12:17 | Discharge Summary ---
Date of Service June 29, 2023 Admission HPI Per Admitting Provider This is a 72-year-old female who had 4 episodes of diarrhea on Tuesday prior to presenting the ER for further evaluation and treatment with associated abdominal cramping and discomfort.. In the ER CT the abdomen pelvis was unremarkable, as well as an unremarkable CTA of the chest was obtained. EKG was nonacute sinus rhythm. The patient also had a negative COVID test and a negative influenza screen as well as negative RSV. We are called admit the patient for GI viral illness. Will hydrate start clears monitor carefully. If she has more diarrhea here we will send stools for culture and analysis for C. difficile and stool bio fire Admission Exam Per Admitting Provider In general: This is a 72-year-old female who is alert and oriented x 3, exam. She states he feels somewhat better than she did on presentation to the ER. She has had no more stools since presenting to the ER. She denies any active chest pain she does still admit to some mild abdominal cramping. HEENT: Normocephalic atraumatic pupils are equal round and reactive to light bilaterally. No scleral icterus no conjunctival injection external auditory canals are patent septum is in the midline nose is without discharge oral mucosa is pink and moist without lesion. The patient does have underlying chronic tardive dyskinesia NECK: Supple no rigidity no lymphadenopathy no thyromegaly no carotid bruits no JVD no masses. HEART: Regular rate and rhythm I do not appreciate any ectopy or rub. No murmur. LUNGS: Clear to auscultation bilaterally and anteriorly with no evidence of adventitious sounds/wheezes rales or rhonchi. ABDOMEN: Soft nontender, no rebound, no peritoneal signs, positive bowel sounds, no appreciable organomegaly. EXTREMITIES: Obese, intact, no peripheral cyanosis, clubbing or edema. Strength is 5 out of 5 in extremities x4, no pathological reflexes. NEUROLOGICAL: Cranial nerves II through XII are grossly intact with no focal de ficit elicited upon examination. No tremor. Again tardive dyskinesias noted on neurologic exam. Principal Diagnosis Acute flare of Irritable Bowel Syndrome Hypokalemia Incidentally found adrenal cortical adenoma Discharge Exam General: Awake, conversant Heart: S1, S2/regular rate and rhythm, no murmur rubs or gallops Lungs: Clear to auscultation bilaterally. Normal effort Abdomen: Soft/nontender/nondistended. No hepatosplenomegaly Extremities: No clubbing/cyanosis. No edema Behavior: Appropriate, cooperative Discharge Data Allergies Allergy/AdvReac Type Severity Reaction Status Date / Time glipizide Allergy Severe Unknown Unverified 06/26/23 22:34 Penicillins Allergy Intermediate HIVES Verified 06/26/23 22:34 aspirin Allergy Mild "hives" Verified 06/26/23 22:34 erythromycin base Allergy Mild RASH Verified 06/26/23 22:34 peach Allergy Mild [place] fuzz Verified 06/26/23 22:34 - hives tramadol Allergy Mild Nausea Verified 06/26/23 22:34 empagliflozin AdvReac abdominal Verified 06/26/23 22:34 [From Jardiance] cramping metformin AdvReac diarrhea Verified 06/26/23 22:34 sitagliptin [From Januvia] AdvReac Abdominal Verified 06/26/23 22:34 Pain Consultations 06/26/23 22:46 ED Decision to Admit Stat Ordered Studies 06/26/23 20:09 CT angio abdomen pelvis w con Stat CT angio chest dissec wo/w con Stat Hospital Course (1) Diarrhea: Acute on chronic The patient has a history of irritable bowel syndrome with diarrhea. Resolved to her baseline with supportive care CT the abdomen pelvis nonacute. Tolerating solid meals Repleted potassium (2) Abdominal pain: Acute on chronic. Probable viral enteritis. Viral panel negative CT of the abdomen pelvis negative. Supportive care. Resolved Tolerating solid meals (3) Lactic acidemia: Secondary to GI losses lactic acid Resolved (4) Diabetes mellitus, type 2: Insulin therapy (5) Adrenal cortical adenoma: Incidental finding on CAT scan of the abdomen pelvis Should be followed as an outpatient per standard of care. (6) Chest pain: Patient complained of chest pain on presentation she has no chest pain at the time my exam her EKG is nonacute her CTA is negative. Negative troponin. This is probably nonspecific Plan Discharge today. Left a message to speak to the daughter. Awaiting reply. Total Time Total Time Spent Total Time Spent (In Minutes): 35 Discharge Plan Discharge Items Patient Disposition: Home - Self-Care Reason For Visit: DIARRHEA, WEAKNESS Discharge Diagnosis: Acute flare of Irritable Bowel Syndrome Hypokalemia Incidentally found adrenal cortical adenoma Activity: Resume your previous activity Non-emergency contact: Primary Care Provider Call non-emergency contact if: you have any medication questions and your symptoms worsen Follow-up/Referrals: Jim Welch DO [Primary Care Provider] - 06/30/23 1:00 pm (Keep appointment scheduled for : 06/30/23 @ 1pm) Diet: Carb Consistent or DM2 and Heart Healthy Addtl Attending Provider Instructions: - Advised to follow-up with PCP in 1 week Pending Studies at Discharge: No Stand-Alone Forms: My [facility] Medications and DC Order Prescriptions: Continued omeprazole 40 mg capsule,delayed release(DR/EC) 40 mg PO QAM Qty: 90 3RF Myrbetriq 50 mg tablet extended release 24 hr 50 mg PO QAM Qty: 90 1RF solifenacin [Vesicare] 10 mg tablet 10 mg PO QAM Qty: 90 1RF pregabalin 150 mg capsule 150 mg PO TID Qty: 270 3RF Rx Instructions: not on list from pharmacy albuterol sulfate 90 mcg/actuation HFA aerosol inhaler 1 puff inhalation QID PRN (Reason: shortness of breath or wheezing) Qty: 6.7 0RF ondansetron 4 mg tablet,disintegrating 4 mg PO Q8H PRN (Reason: nausea and vomiting) Qty: 30 1RF buspirone 10 mg tablet 20 mg PO TID lorazepam 1 mg tablet 1.5 mg PO HS cholecalciferol (vitamin D3) [Vitamin D3] 1,000 unit Capsule 1,000 unit PO QAM Rx Instructions: otc unable to verify omega 3-kms-oeb-fish oil [Fish Oil] 1,000 mg (120 mg-180 mg) Capsule 3 cap PO HS Rx Instructions: otc unable to verify fluticasone propionate [Flonase Allergy Relief] 50 mcg/actuation spray,suspension 2 sprays INTRANASAL DAILY PRN (Reason: Allergy Symptoms) Rx Instructions: unable to verify cetirizine [Zyrtec] 10 mg tablet 10 mg PO QAM Rx Instructions: otc unable to verify sertraline 100 mg tablet 200 mg PO DAILY insulin glargine U-300 conc 300 unit/mL (1.5 mL) insulin pen 0 unit subcut .once daily doxepin 75 mg capsule 150 mg PO HS melatonin 10 mg Tablet 20 mg PO HS Rx Instructions: otc unable to verify atorvastatin 10 mg tablet 10 mg PO HS Rx Instructions: take 1 tablet by mouth every evening famotidine [Pepcid] 40 mg tablet 40 mg PO HS Discharge Orders: Discharge Order (Routine); Ordered 06/29/23 Ordered By: Alo Polo Admission Data Admit Date/Time: 06/26/23 23:41 Attending Provider: Alo Polo Admit Provider: Brandon Zhu Primary Care Provider: Jim Welch Other Providers: Brandon Zhu Other Interventions: Discharge Summary Assessment (RN) Last Done: 06/29/23 15:57 Coding Level of Care Code 03135 INP/OBS DISCH >30 MIN Diagnoses Diarrhea R19.7 Abdominal pain R10.9 Lactic acidemia E87.20 Diabetes mellitus, type 2 E11.9 Adrenal cortical adenoma D35.00 Chest pain R07.9
== END 2023-06-29 16:23 | disposition home or self-care (01) ==
LOC: EDINP 20:00 → ED 20:00 → SUATTDRO 23:41 → 2S 06-27 01:54